=== PATIENT | female | born 1935 | race Caucasian/White ===

== ENCOUNTER 2016-04-25 01:04 | Emergency (ER) | payer OTHER ==
[~2016-04-25] VITALS: Ht 157.5 cm; Wt 70.9 kg
[~2016-04-25 01:04] MED LIST: ALBUAER2 INH; ATEN-173 PO; CHOL100010 PO; HYDR50TA3 PO; MAGNESIUM PO; PANT40TA PO; POTA-327 PO; RXC5 PO; TIOTCAP INH; [UNRECOGNIZED DRUG - OTHER] PO
[2016-04-25 01:12] VITALS: TEMP 36.5; Ht 157.5 cm; Wt 70.9 kg
[2016-04-25] MEDS ORDERED: PRED50TA PO (01:27)
[2016-04-25 01:49] VITALS: BP 142/83; PULSE 71; O2SAT 93
--- NOTE | 2016-04-25 05:07 | EMERGENCY ROOM VISIT NOTE ---
History First contact with patient: :17 Chief Complaint: SKIN PROBLEM Stated Complaint: HIVES History of Present Illness The patient is a 80 year old female who presents to the Emergency Room with complaints of itchiness and rash that has been ongoing for the past 2-3 days. The patient was recently given a prescription for Zithromax from her primary care physician's office. The patient subsequently developed a yeast infection. She took one dose of Diflucan 150 mg, and within a few hours began having her symptoms. The patient states that she initially had facial flushing, and has been taking Benadryl every 6 hours. The Benadryl does help with her symptoms, but she continues to have itchiness of her back and arms. The patient is not having difficulty breathing, facial or throat swelling, or abdominal pain. She rates her current discomfort a 2/10. Review of Systems More than 10 systems were reviewed and otherwise negative with the exception of history of present illness. Past Medical/Surgical History Medical Problems: (1) Acute exacerbation of chronic obstructive pulmonary disease (COPD) (2) Benign hypertension (3) Cardiac catheterization (4) Chronic obstructive lung disease (5) Hysterectomy (6) Lumbar stenosis with neurogenic claudication (7) Pneumonia (8) Tonsillectomy Family History Patient reports no known family medical history. Social History Smoking Status: Never Smoker Alcohol Use: none Drug Use: none Marital Status: Housing Status: lives with family Occupation Status: retired Current/Historical Medications Scheduled Albuterol (Ventolin Hfa), 2 PUFF INH QID Atenolol (Tenormin), 25 MG PO QAM Cholecalciferol (Vitamin D), 1,000 INTER.UNIT PO QPM Hydrochlorothiazide (Hctz), 50 MG PO QAM Pantoprazole (Protonix), 40 MG PO BID Potassium Ext Rel (Klor-Con), 10 MEQ PO BID Prednisone (Prednisone), 50 MG PO DAILY Tiotropium [place] (Spiriva Handihaler), 1 CAP INH QAM [Magnesium ], 250 MG PO QPM [bladder 2.2], 2 TABLETS PO QPM Scheduled PRN Oxycodone HCl (Oxycodone HCl), 5-10 MG PO Q4H PRN for Pain Allergies Coded Allergies: Nitrofurantoin (Verified Allergy, Severe, SHORTNESS OF BREATH, 09/29/15) Terazosin (Verified Allergy, Severe, SHORTNESS OF BREATH, 09/29/15) Levofloxacin (Verified Allergy, Intermediate, SOB, pt able to take cipro w /o prob, 09/29/15) Lisinopril (Verified Allergy, Intermediate, COUGH SOB, 09/29/15) Losartan (Verified Allergy, Intermediate, SHORTNESS OF BREATH, 09/29/15) Nifedipine (Verified Allergy, Intermediate, SHORTNESS OF BREATH, 09/29/15) Amoxicillin (Verified Allergy, Unknown, HIVES, 09/29/15) Phenazopyridine (Verified Allergy, Unknown, UNKNOWN, 09/29/15) Sulfamethoxazole w/Trimethoprim (Verified Allergy, Unknown, hives, 09/29/15) Fluconazole (Verified Adverse Reaction, Intermediate, rash, hives, 04/25/16) Physical Exam Vital Signs Date Time Temp Pulse Resp B/P Pulse Ox O2 Delivery O2 Flow Rate FiO2 04/25/16 01:49 71 18 142/83 93 04/25/16 01:12 36.5 76 20 143/75 93 Room Air Pain Rating (0-10): 0 Physical Exam VITALS: Vitals are noted on the nurse's note and reviewed by myself. Vital signs stable. GENERAL: Well-developed, well-nourished, white female, who is in no acute distress and resting comfortably. Patient is cooperative with the examination. HEAD: Normocephalic atraumatic. MOUTH: Mucous membranes moist. Tonsils are not enlarged. Pharynx without erythema, blood, or exudate. Uvula midline. Airway patent. NECK: Supple without nuchal rigidity. No lymphadenopathy. No thyromegaly. Cervical spine is nontender. HEART: Regular rate and rhythm without murmurs gallops or rubs. LUNGS: Clear to auscultation bilaterally without wheezes, rales or rhonchi. No retractions or accessory muscle use. ABDOMEN: Positive normal bowel sounds x 4. Soft, nontender, without masses or organomegaly. No guarding or rebound tenderness. SKIN: The skin was with urticarial rash primarily along the lower back and anterior forearms Medical Decision & Procedures Medications Administered Medications (Trade) Dose Ordered Sig/Christopher Route Start Time Stop Time Status Last Admin Dose Admin Prednisone (PredniSONE TAB) 50 mg NOW ONCE PO 04/25/16 01:30 04/25/16 01:31 DC 04/25/16 01:35 50 MG ED Course Physical exam and history were performed. Nursing notes and EMR were reviewed. Patient appears to have allergic reaction to Diflucan that she took 2 or 3 days ago. The patient will be given a course of prednisone for her symptoms and she does not appear in anaphylaxis here in the department. We'll give her a continuation course of the medication. She is to continue [id number] Benadryl. She is to follow with PCP and was otherwise invited back to the ER with any new, worsening, or concerning symptoms. The chart was completed utilizing [employer] Speech Voice Recognition Software. Grammatical errors, random word insertions, pronoun errors, and incomplete sentences are an occasional consequence of this system due to software limitations, ambient noise, and hardware issues. Any formal questions or concerns about the content, text, or information contained within the body of this dictation should be directly addressed to the provider for clarification. . Medical Decision Differential diagnosis: Etiologies such as allergic reaction, anaphylaxis, urticaria, Thomas-Frank syndrome, toxic epidermal necrolysis, erythema multiforme, cellulitis, as well as others were entertained. Impression Primary Impression: Medication reaction Additional Impression: Allergic reaction Departure Information Dispostion Home / Self-Care Condition GOOD Prescriptions Prednisone (Prednisone) 50 Mg Tab 50 MG PO DAILY for 4 Days, #4 TAB Prov: Cody Watkins PA-C 04/25/16 Forms HOME CARE DOCUMENTATION FORM, IMPORTANT VISIT INFORMATION Patient Instructions A Signature Page, [facility] Additional Instructions You were seen and evaluated today on an emergency basis only. This is not a substitute for, or an effort to provide, complete comprehensive medical care. It is not possible to recognize and treat all injuries or illnesses in a single emergency department visit. For this reason it is recommended that you followup with your primary care physician's office in the next 1-2 days for recheck of your condition. Take Benadryl 25-50 mg every 6 hours for the next 2-3 days as needed. Take prednisone as prescribed You are welcome to return to the emergency department anytime with new, worsening, or concerning symptoms.
[2016-04-26] MEDS ORDERED: ALBU18002 INH (03:19)
[2016-10-06] MEDS ORDERED: PRED10TA (06:16)
[2016-10-06] MEDS ORDERED: DOXY100C2 PO (06:16)
[2016-10-12] MEDS ORDERED: ALBINS PO (15:38)
[2016-10-12] MEDS ORDERED: PRED10TA PO (15:38)
[2016-10-12] MEDS ORDERED: HYDR50TA3 PO (15:38)
[2016-10-12] MEDS ORDERED: ASPEC81 PO (15:38)
[2016-10-12] MEDS ORDERED: GFNSR600 PO (15:38)
[2016-10-12] MEDS ORDERED: ATOR-24 PO (15:38)
[2016-10-12] MEDS ORDERED: ALL60 PO (15:38)
[2016-10-12] MEDS ORDERED: TRIA1SPR4 NAE (15:38)
[2016-11-10] MEDS ORDERED: OXYC-57 PO (11:08)
[2016-11-10] MEDS ORDERED: CLOP1TAB5 PO (11:49)
== END 2016-04-25 01:50 | disposition home or self-care (01) ==
LOC: C.EDB 01:05 → C.EDA 01:50
DX: L50.0 Allergic urticaria (principal); T37.8X5A Adverse effect of other specified systemic anti-infectives and antiparasitics, initial encounter; I10 Essential (primary) hypertension; J44.9 Chronic obstructive pulmonary disease, unspecified; Z90.710 Acquired absence of both cervix and uterus; Z87.01 Personal history of pneumonia (recurrent); Z79.899 Other long term (current) drug therapy

== ENCOUNTER 2016-04-26 02:36 | Emergency (ER) | payer OTHER ==
[~2016-04-26] VITALS: Ht 157.5 cm; Wt 70.8 kg
[~2016-04-26 02:36] MED LIST changes: +PRED50TA PO
[2016-04-26 02:42] VITALS: TEMP 36.4; Ht 157.5 cm; Wt 70.8 kg
[2016-04-26] MEDS ORDERED: FAMOTIDINE 20MG/102 ML D5W IV STA (03:00)
[2016-04-26] MEDS ORDERED: DiphenhydrAMINE HCL 50 MG/ML VIAL IV STA (03:00)
[2016-04-26] MEDS ORDERED: DEXAMETHASONE SOD INJ 10 MG/ML VIAL IV ONE (03:00)
[2016-04-26] MEDS ORDERED: SODIUM CHLORIDE 0.9% 1000ML 1,000 ML IV STA (03:00)
[2016-04-26] MEDS ORDERED: ALBU18002 INH (03:19)
[2016-04-26 03:32] LABS: BASO % 0.1 %; BASO ABS # 0.01 K/uL (0-0.2); COMPLETE YES; HEMATOCRIT 41.3 % (37-47); IG% 0.4 %; LYMPH % 7.5 %; LYMPH ABS # 1.32 K/uL (1.2-3.4); MEAN CELL VOLUME 90.6 fL (80-100); MEAN CORPUSCULAR HEMOGLOBIN 30.9 pg (25-34); MEAN CORPUSCULAR HGB CONC 34.1 g/dl (32-36); PLATELET COUNT 371 K/uL (130-400); RED BLOOD COUNT 4.56 M/uL (4.2-5.4); WHITE BLOOD COUNT 17.69 K/uL (4.8-10.8)
[2016-04-26 03:51] LABS: BUN/CREATININE RATIO 21.6 (10-20); POTASSIUM 3.4 mmol/L (3.5-5.1)
--- NOTE | 2016-04-26 04:41 | EMERGENCY ROOM VISIT NOTE ---
History Report prepared by Belle: Mikael Sherwood Under the Supervision of: Dr. Larry Bermudez M.D. First contact with patient: 02:50 Chief Complaint: SKIN PROBLEM Stated Complaint: HIVES-ITCHY SKIN History of Present Illness The patient is an 80 year old female who presents to the Emergency Room with complaints of worsening hives all over her body for the past week. The rash covers her abdomen, back, and extremities. The rash is itchy. The patient had two Benadryl tabs at approximately 2300. She was in the ED for the same rash last night. Her is not having any rashes. The patient denies shortness of breath, chest pain, urinary symptoms, or syncope. She has ankle swelling at baseline. The patient last had Fluconazole for a yeast infection on 04/20. Source of History: patient Onset: one week Position: other (skin) Quality: other (hives) Timing: worsening Associated Symptoms: No SOB, No chest pain, No urinary symptoms Review of Systems See HPI for pertinent positives & negatives. A total of 10 systems reviewed and were otherwise negative. Past Medical & Surgical Medical Problems: (1) Acute exacerbation of chronic obstructive pulmonary disease (COPD) (2) Benign hypertension (3) Cardiac catheterization (4) Chronic obstructive lung disease (5) Hysterectomy (6) Lumbar stenosis with neurogenic claudication (7) Pneumonia (8) Tonsillectomy Family History Patient reports no known family medical history. Social History Smoking Status: Former Smoker Alcohol Use: none Drug Use: none Marital Status: Housing Status: lives with family Occupation Status: retired Current/Historical Medications Scheduled Atenolol (Tenormin), 25 MG PO QAM Hydrochlorothiazide (Hctz), 50 MG PO QAM Pantoprazole (Protonix), 40 MG PO BID Potassium Ext Rel (Klor-Con), 10 MEQ PO BID Tiotropium [place] (Spiriva Handihaler), 1 CAP INH QAM [bladder 2.2], 2 TABLETS PO QPM Scheduled PRN Albuterol Sulfate (Proair Respiclick), 2 PUFFS INH Q4 PRN for SOB/Wheezing Allergies Coded Allergies: Nitrofurantoin (Verified Allergy, Severe, SHORTNESS OF BREATH, 04/26/16) Terazosin (Verified Allergy, Severe, SHORTNESS OF BREATH, 04/26/16) Levofloxacin (Verified Allergy, Intermediate, SOB, pt able to take cipro w /o prob, 04/26/16) Lisinopril (Verified Allergy, Intermediate, COUGH SOB, 04/26/16) Losartan (Verified Allergy, Intermediate, SHORTNESS OF BREATH, 04/26/16) Nifedipine (Verified Allergy, Intermediate, SHORTNESS OF BREATH, 04/26/16) Amoxicillin (Verified Allergy, Unknown, HIVES, 04/26/16) Phenazopyridine (Verified Allergy, Unknown, UNKNOWN, 04/26/16) Sulfamethoxazole w/Trimethoprim (Verified Allergy, Unknown, hives, 04/26/16) Fluconazole (Verified Adverse Reaction, Intermediate, rash, hives, 04/26/16) Physical Exam Vital Signs Date Time Temp Pulse Resp B/P Pulse Ox O2 Delivery O2 Flow Rate FiO2 04/26/16 04:55 66 18 154/74 95 04/26/16 04:19 71 18 155/78 98 Room Air 04/26/16 02:42 36.4 79 18 143/70 92 Room Air Physical Exam GENERAL: Patient is well appearing, in mild distress. HEENT: No acute trauma, normocephalic atraumatic, mucous membranes moist, no nasal congestion, no scleral icterus. NECK: No stridor, no adenopathy, no meningismus, trachea is midline. LUNGS: No dyspnea. Clear to auscultation and equal bilaterally. No wheeze, no rhonchi. HEART: Regular rate and rhythm. No murmurs, rubs, gallops appreciated. ABDOMEN: Soft, nontender, bowel sounds positive, no masses appreciated, no peritonitis. BACK: No midline tenderness, no CVA tenderness EXTREMITIES: Normal motion all extremities, no cyanosis, no edema. NEUROLOGIC: Alert and oriented, no acute motor or sensory deficits, no focal weakness, cranial nerves grossly intact. SKIN: No jaundice, no diaphoresis. Diffuse hives/urticaria. Medical Decision & Procedures Laboratory Results 04/26/16 03:20 Red Blood Count 4.56, Mean Corpuscular Volume 90.6, Mean Corpuscular Hemoglobin 30.9, Mean Corpuscular Hemoglobin Concent 34.1, Mean Platelet Volume 11.0, Neutrophils (%) (Auto) 85.0, Lymphocytes (%) (Auto) 7.5, Monocytes (%) (Auto) 7.0, Eosinophils (%) (Auto) 0.0, Basophils (%) (Auto) 0.1, Neutrophils # (Auto) 15.05, Lymphocytes # (Auto) 1.32, Monocytes # (Auto) 1.24, Eosinophils # (Auto) 0.00, Basophils # (Auto) 0.01 04/26/16 03:20 Test 04/26/16 03:20 White Blood Count 17.69 K/uL (4.8-10.8) Red Blood Count 4.56 M/uL (4.2-5.4) Hemoglobin 14.1 g/dL (12.0-16.0) Hematocrit 41.3 % (37-47) Mean Corpuscular Volume 90.6 fL (80-100) Mean Corpuscular Hemoglobin 30.9 pg (25-34) Mean Corpuscular Hemoglobin Concent 34.1 g/dl (32-36) Platelet Count 371 K/uL (130-400) Mean Platelet Volume 11.0 fL (7.4-10.4) Neutrophils (%) (Auto) 85.0 % Lymphocytes (%) (Auto) 7.5 % Monocytes (%) (Auto) 7.0 % Eosinophils (%) (Auto) 0.0 % Basophils (%) (Auto) 0.1 % Neutrophils # (Auto) 15.05 K/uL (1.4-6.5) Lymphocytes # (Auto) 1.32 K/uL (1.2-3.4) Monocytes # (Auto) 1.24 K/uL (0.11-0.59) Eosinophils # (Auto) 0.00 K/uL (0-0.5) Basophils # (Auto) 0.01 K/uL (0-0.2) RDW Standard Deviation 49.7 fL (36.4-46.3) RDW Coefficient of Variation 14.9 % (11.5-14.5) Immature Granulocyte % (Auto) 0.4 % Immature Granulocyte # (Auto) 0.07 K/uL (0.00-0.02) Anion Gap 11.0 mmol/L (3-11) Est Creatinine Clear Calc Drug Dose 41.4 ml/min Estimated GFR () 61.6 Estimated GFR (Non- 53.2 BUN/Creatinine Ratio 21.6 (10-20) Calcium Level 9.0 mg/dl (8.5-10.1) Total Bilirubin 0.3 mg/dl (0.2-1) Aspartate Amino Transf (AST/SGOT) 15 U/L (15-37) Alanine Aminotransferase (ALT/SGPT) 24 U/L (12-78) Alkaline Phosphatase 83 U/L (45-117) Total Protein 7.9 gm/dl (6.4-8.2) Albumin 4.0 gm/dl (3.4-5.0) Globulin 3.9 gm/dl (2.5-4.0) Albumin/Globulin Ratio 1.0 (0.9-2) Laboratory results as reviewed by me. Medications Administered Medications (Trade) Dose Ordered Sig/Christopher Route Start Time Stop Time Status Last Admin Dose Admin Sodium Chloride (Nss 1000ml) 1,000 ml @ 999 mls/hr Q1H1M STAT IV 04/26/16 03:00 04/26/16 04:00 DC 04/26/16 03:29 999 MLS/HR Dexamethasone Sodium Phosphate (Decadron Inj) 10 mg NOW ONCE IV 04/26/16 03:00 04/26/16 03:02 DC 04/26/16 03:30 10 MG Diphenhydramine HCl (Benadryl Inj) 50 mg NOW STAT IV 04/26/16 03:00 04/26/16 03:02 DC 04/26/16 03:29 50 MG Famotidine (Pepcid 20mg/100 ml) 20 mg ONE STAT IV 04/26/16 03:00 04/26/16 03:02 DC 04/26/16 03:30 20 MG Lorazepam (Ativan 1MG Home Pack) 2 homepack UD ONCE PO 04/26/16 04:45 04/26/16 04:46 DC 04/26/16 04:51 2 HOMEPACK ED Course 0251: The patient was evaluated in room B3b. A complete history and physical exam was performed. 0300: Famotidine 20 mg IV, Benadryl 50 mg IV, Decadron 10 mg IV, NSS 1000 ml @ 999 mls/hr. 0430: The patient is feeling better. She wants something so that she can get some sleep. 0440: Reevaluated the patient. Discussed results and discharge instructions: She verbalized understanding and agreement. The patient is ready for discharge. 0445: Ativan 1 mg PO, two home packs. Medical Decision Differential: Allergic Reaction, Urticaria, Anaphylaxis, Thomas-Frank Syndrome, Toxic Epidermal Necrolysis, Erythema Multiforme, Cellulitis, amongst other etiologies entertained. 80 yr old female with diffuse hives/urticaria presumably from recent fluconazole usage. No mucous membrane involvement and hives resolved with IV benadryl here. Mild leukocytosis likely prednisone induced as no fevers nor infectious symptoms. Discussed possibility of this ongoing a few more days. Advised against hot showers that she takes regularly along with reviewed other important instructions of hives. Was given ativan to go as a sleep aid so she can sleep at night rather than be awake all night itching. Impression Primary Impression: Allergic reaction Additional Impressions: Full body hives, Acute urticaria Scribe Attestation The scribe's documentation has been prepared under my direction and personally reviewed by me in its entirety. I confirm that the note above accurately reflects all work, treatment, procedures, and medical decision making performed by me. Departure Information Dispostion Home / Self-Care Referrals Lonnie Nicolas M.D. (PCP) Forms HOME CARE DOCUMENTATION FORM, IMPORTANT VISIT INFORMATION, WORK / SCHOOL INSTRUCTIONS Patient Instructions A Signature Page, ED Urticaria, [facility] Additional Instructions You have received a benzodiazepine sleep medication. These medications may cause drowsiness and should not be used with other sedative medications. Do not drive, drink alcohol, perform dangerous activities, nor make important decisions after taking these medications. intermission coordinator use or inappropriate use may lead to addiction.
[2016-04-26] MEDS ORDERED: ATIVAN 1MG HOMEPACK PO ONE (04:45)
[2016-04-26 04:55] VITALS: BP 154/74; PULSE 66; O2SAT 95
[2016-10-06] MEDS ORDERED: DOXY100C2 PO (06:16)
[2016-10-06] MEDS ORDERED: PRED10TA (06:16)
[2016-10-12] MEDS ORDERED: ALL60 PO (15:38)
[2016-10-12] MEDS ORDERED: HYDR50TA3 PO (15:38)
[2016-10-12] MEDS ORDERED: TRIA1SPR4 NAE (15:38)
[2016-10-12] MEDS ORDERED: ASPEC81 PO (15:38)
[2016-10-12] MEDS ORDERED: ATOR-24 PO (15:38)
[2016-10-12] MEDS ORDERED: ALBINS PO (15:38)
[2016-10-12] MEDS ORDERED: PRED10TA PO (15:38)
[2016-10-12] MEDS ORDERED: GFNSR600 PO (15:38)
[2016-11-10] MEDS ORDERED: OXYC-57 PO (11:08)
[2016-11-10] MEDS ORDERED: CLOP1TAB5 PO (11:49)
== END 2016-04-26 04:56 | disposition home or self-care (01) ==
LOC: C.EDB 02:38
DX: L50.0 Allergic urticaria (principal); Z79.899 Other long term (current) drug therapy; X58.XXXA Exposure to other specified factors, initial encounter

== ENCOUNTER → 2016-10-06 | Outpatient (CLI) | payer OTHER ==
[~2016-10-06] MED LIST changes: +ALBINS PO; +ALBU18002 INH; -ALBUAER2 INH; +ALL60 PO; +ASPEC81 PO; +ATOR-24 PO; -CHOL100010 PO; +CLOP1TAB5 PO; +DOXY100C2 PO; +GFNSR600 PO; -MAGNESIUM PO; +NUTR1TAB3 PO; +OXYC-57 PO; +POTA-74 PO; +PRED10TA; +PRED10TA PO; -PRED50TA PO; -RXC5 PO; +SPRIN/30 PO; +TRIA1SPR4 NAE; +VNTHFA/IN INH
--- NOTE | 2016-10-06 14:56 | DIAGNOSTIC IMAGING REPORT ---
ULTRASOUND VENOUS DOPPLER LWR EXT BILA CLINICAL HISTORY: Leg discomfort and change in temperature. COMPARISON STUDY: No previous studies for comparison. FINDINGS: Real-time and color flow Doppler imaging were performed. Flow was seen within the femoral, popliteal and calf veins with no intraluminal thrombus demonstrated. The saphenous vein is patent. IMPRESSION: No evidence of deep venous thrombosis. Electronically signed by: Meek Martin M.D. 10/06/2016 2:54 PM Dictated Date/Time: 10/06/2016 2:54 PM
--- NOTE | 2016-10-06 14:58 | DIAGNOSTIC IMAGING REPORT ---
ULTRASOUND ART DOP LOWER EXT BILAT CLINICAL HISTORY: LEG WEAKNESS W/OUT CHG IN TEMPERATURE pain COMPARISON STUDY: None FINDINGS: Real-time as well as Doppler evaluation of the arterial structures of the lower legs was performed. Waveforms of the right leg indicate monophasic waveforms throughout. There are biphasic waveforms throughout the entire left leg. The following blood pressure indices were obtained. On the right, posterior tibial is 0.49 and dorsalis pedis is 0.35. On the left, posterior tibial is 0.83 and dorsalis pedis is 0.58. IMPRESSION:: 1. 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 2. Moderate arterial occlusive change throughout the entire left leg. 3. No evidence for complete stenosis or occlusion Electronically signed by: Declan Mckay M.D. 10/06/2016 2:57 PM Dictated Date/Time: 10/06/2016 2:54 PM
== END | disposition home or self-care (01) ==
LOC: C.ULTR 12:17
PROVIDERS: ATTEND Orthopaedic Surgery Orthopaedic Surgery of the Spine
DX: R29.898 Other symptoms and signs involving the musculoskeletal system (principal); I74.9 Embolism and thrombosis of unspecified artery

== ENCOUNTER 2016-10-07 05:49 | Inpatient (IN) | payer OTHER ==
[~2016-10-07] VITALS: Ht 157.5 cm; Wt 73.0 kg
[2016-10-07] VITALS (7 sets, daily range): BP systolic 102–133; BP diastolic 57–74; PULSE 75–106; TEMP 36.6–36.9; O2SAT 91–99; Ht 157.5 cm; Wt 73.0 kg
[~2016-10-07 05:49] MED LIST changes: -ALBINS PO; -ALL60 PO; -ASPEC81 PO; -ATOR-24 PO; -CLOP1TAB5 PO; -GFNSR600 PO; -NUTR1TAB3 PO; -OXYC-57 PO; -POTA-74 PO; -PRED10TA PO; -SPRIN/30 PO; -TRIA1SPR4 NAE; -VNTHFA/IN INH
[2016-10-07] MEDS ORDERED: METHYLPREDNISOLONE 125 MG VIAL IV STA (06:02)
--- NOTE | 2016-10-07 06:05 | EMERGENCY ROOM VISIT NOTE ---
History Report prepared by Belle: Kelsie Briscoe Under the Supervision of: Dr. Larry Bermudez M.D. First contact with patient: 05:58 Chief Complaint: RESPIRATORY PROBLEMS Stated Complaint: CAN'T BREATHE History of Present Illness The patient is a 81 year old female who presents to the Emergency Room with complaints of shortness of breath since yesterday. The patient has COPD and uses a nebulizer at home. The patient also reports having upper right back pain. She denies any fevers, coughing, nausea, vomiting, chest pain, and abdominal pain. The patient also states that she has not traveled recently. Source of History: patient Onset: yesterday Position: chest Quality: other (shortness of breath ) Associated Symptoms: + back pain (upper right), No fevers, No cough, No chest pain, No nausea, No vomiting Review of Systems See HPI for pertinent positives & negatives. A total of 10 systems reviewed and were otherwise negative. Past Medical & Surgical Medical Problems: (1) Acute exacerbation of chronic obstructive pulmonary disease (COPD) (2) Fung's esophagus (3) Benign hypertension (4) Cardiac catheterization (5) Chronic obstructive lung disease (6) Hysterectomy (7) Lumbar stenosis with neurogenic claudication (8) Tonsillectomy Family History Patient reports no known family medical history. No pertinent family history stated. Social History Smoking Status: Former Smoker Alcohol Use: none Drug Use: none Marital Status: Housing Status: lives with family Occupation Status: retired Current/Historical Medications Scheduled Atenolol (Tenormin), 25 MG PO QAM Doxycycline Hyclate (Vibramycin), 100 MG PO BID Hydrochlorothiazide (Hctz), 50 MG PO QAM Nutritional Supplements (Bladder 2.2), 2 TABS PO DAILY Pantoprazole (Protonix), 40 MG PO BID Potassium Chloride (Potassium Chloride Er), 10 MEQ PO BID Prednisone (Prednisone), UD Tiotropium [place] (Spiriva Handihaler), 1 INHA PO DAILY Scheduled PRN Albuterol Hfa (Ventolin Hfa), 2 PUFFS INH Q4 PRN for SOB/Wheezing Allergies Coded Allergies: Nitrofurantoin (Verified Allergy, Severe, SHORTNESS OF BREATH, 10/07/16) Terazosin (Verified Allergy, Severe, SHORTNESS OF BREATH, 10/07/16) Levofloxacin (Verified Allergy, Intermediate, SOB, pt able to take cipro w /o prob, 10/07/16) Lisinopril (Verified Allergy, Intermediate, COUGH SOB, 10/07/16) Losartan (Verified Allergy, Intermediate, SHORTNESS OF BREATH, 10/07/16) Nifedipine (Verified Allergy, Intermediate, SHORTNESS OF BREATH, 10/07/16) Amoxicillin (Verified Allergy, Unknown, HIVES, 10/07/16) Phenazopyridine (Verified Allergy, Unknown, UNKNOWN, 10/07/16) Sulfamethoxazole w/Trimethoprim (Verified Allergy, Unknown, hives, 10/07/16 ) Fluconazole (Verified Adverse Reaction, Intermediate, rash, hives, 10/07/16 ) Physical Exam Vital Signs Date Time Temp Pulse Resp B/P (MAP) Pulse Ox O2 Delivery O2 Flow Rate FiO2 10/07/16 08:01 138/67 10/07/16 07:57 116 10/07/16 07:31 144/58 10/07/16 07:28 99 Nasal Cannula 4.0 10/07/16 06:29 94 134/85 99 Nasal Cannula 4.0 10/07/16 06:15 96 Nasal Cannula 4.0 10/07/16 05:54 36.8 99 20 145/85 87 Room Air Physical Exam GENERAL: Patient is anxious appearing and in mild distress. HEENT: No acute trauma, normocephalic atraumatic, mucous membranes moist, no nasal congestion, no scleral icterus. NECK: No stridor, no adenopathy, no meningismus, trachea is midline. LUNGS: No dyspnea. Tight lung sounds throughout, Mild diffuse wheezing no rhonchi. HEART: Regular rate and rhythm. No murmurs, rubs, gallops appreciated. ABDOMEN: Soft, nontender, bowel sounds positive, no masses appreciated, no peritonitis. BACK: No midline tenderness, no CVA tenderness EXTREMITIES: Normal motion all extremities, no cyanosis, no edema. NEUROLOGIC: Alert and oriented, no acute motor or sensory deficits, no focal weakness, cranial nerves grossly intact. SKIN: No rash, no jaundice, no diaphoresis. Medical Decision & Procedures ER Provider Diagnostic Interpretation: X ray results are stated below per my interpretation and the radiologist's interpretation. CHEST ONE VIEW PORTABLE CLINICAL HISTORY: [facility] dyspnea COMPARISON STUDY: 10/02/2015 FINDINGS: The bones soft tissues and hemidiaphragms are normal. The cardiomediastinal silhouette is normal. The lungs are clear. The pulmonary vasculature is normal. IMPRESSION: Negative chest. Electronically signed by: Declan Mckay M.D. 10/07/2016 7:00 AM Dictated Date/Time: 10/07/2016 6:59 AM Laboratory Results Test 10/07/16 06:15 10/07/16 06:22 RDW Standard Deviation 52.8 fL (36.4-46.3) RDW Coefficient of Variation 15.1 % (11.5-14.5) White Blood Count 9.29 K/uL (4.8-10.8) Red Blood Count 4.30 M/uL (4.2-5.4) Hemoglobin 13.6 g/dL (12.0-16.0) Hematocrit 41.1 % (37-47) Mean Corpuscular Volume 95.6 fL (80-100) Mean Corpuscular Hemoglobin 31.6 pg (25-34) Mean Corpuscular Hemoglobin Concent 33.1 g/dl (32-36) Platelet Count 341 K/uL (130-400) Mean Platelet Volume 10.5 fL (7.4-10.4) Neutrophils (%) (Auto) 67.9 % Lymphocytes (%) (Auto) 16.0 % Monocytes (%) (Auto) 13.1 % Eosinophils (%) (Auto) 2.5 % Basophils (%) (Auto) 0.3 % Neutrophils # (Auto) 6.30 K/uL (1.4-6.5) Lymphocytes # (Auto) 1.49 K/uL (1.2-3.4) Monocytes # (Auto) 1.22 K/uL (0.11-0.59) Eosinophils # (Auto) 0.23 K/uL (0-0.5) Basophils # (Auto) 0.03 K/uL (0-0.2) Immature Granulocyte % (Auto) 0.2 % Immature Granulocyte # (Auto) 0.02 K/uL (0.00-0.02) Est Creatinine Clear Calc Drug Dose 45.9 ml/min Total Creatine Kinase 78 U/L (26-192) Creatine Kinase MB 0.5 ng/ml (0.5-3.6) Creatine Kinase MB Ratio 0.6 (0-3.0) Troponin I < 0.015 ng/ml (0-0.045) Bedside Lactic Acid Venous 1.68 mmol/L (0.90-1.70) Laboratory results as reviewed by me. Medications Administered Medications (Trade) Dose Ordered Sig/Christopher Route Start Time Stop Time Status Last Admin Dose Admin Albuterol/ Ipratropium (Duoneb) 12 ml ONE ONCE INH 10/07/16 06:15 10/07/16 06:16 DC 10/07/16 06:34 12 ML Methylprednisolone Sodium Succinate (Solu-Medrol IV) 125 mg NOW STAT IV 10/07/16 06:02 10/07/16 06:03 DC 10/07/16 06:33 125 MG Doxycycline Hyclate 100 mg/ Dextrose 110 ml @ 50 mls/hr NOW STAT IV 10/07/16 06:48 10/07/16 08:59 DC 10/07/16 07:24 50 MLS/HR ECG Indication: SOB/dyspnea Rate (beats per minute): 90 Rhythm: normal sinus Findings: no acute ischemic change, no ectopy ED Course 0600: The patient was evaluated in room B2. A complete history and physical exam was performed. 0602: Ordered Solu-Medrol IV 125 mg IV. 0615: Ordered Duoneb 12 ml INH. 0647: The patient's breath sounds have mildly improved. She now has diffuse moderate wheezing. 0648: Ordered Doxycycline Hyclate 100 mg/Dextrose 110 ml @ 50 mls/hr IV. 0705: Upon reevaluation, the patient is resting. Discussed results and treatment plan with the patient. She verbalized understanding and agreement with the treatment plan. The patient will be evaluated for further management. Medical Decision Differential: Infectious, Reactive Airway Disease, Pneumonia, Pneumothorax, COPD , CHF, ACS, Pulmonary Embolism, MSK, GI, Dissection, amongst other etiologies entertained. Medication Reconciliation: I attest that I have personally reviewed the patient 's current medication list. Blood pressure screening: Patient was found to have an elevated blood pressure and will be evaluated by hospitalist for this along with primary medical issue 81 yr old female arrives for evaluation of acute SHOB. Found to be hypoxic with tight lung sounds. Improved with Neb somewhat though still not to point where safe for discharge. IV solumedrol, doxy given. I feel this is unlikely infectious though will cover given her COPD history. Lactic acid OK, no fever, and no hypotension thus will hold on blood cultures. CXR without evidence pneumonia. Stable and agreeable to coming in to hospital. Consults Time Called: 06 Consulting Physician: Dr. Greer- Internal Medicine Returned Call: [phone] Discussed the patient's case. The patient will be evaluated for further treatment and disposition. Impression Primary Impression: Acute exacerbation of chronic obstructive pulmonary disease (COPD) Additional Impression: Hypoxia Scribe Attestation The scribe's documentation has been prepared under my direction and personally reviewed by me in its entirety. I confirm that the note above accurately reflects all work, treatment, procedures, and medical decision making performed by me. Departure Information Dispostion Being Evaluated By Hospitalist Referrals Lonnie Nicolas M.D. (PCP) Patient Instructions My [facility] Problem Qualifiers
[2016-10-07] MEDS ORDERED: NUTR1TAB3 PO (06:13)
[2016-10-07] MEDS ORDERED: SPRIN/30 PO (06:15)
[2016-10-07] MEDS ORDERED: POTA-74 PO (06:15)
[2016-10-07] MEDS ORDERED: ALBUT/IPRATROP 3MG/0.5MG NEB 3 ML VIAL INH ONE (06:15)
[2016-10-07] MEDS ORDERED: VNTHFA/IN INH (06:18)
[2016-10-07 06:27] LABS: BASO % 0.3 %; BASO ABS # 0.03 K/uL (0-0.2); COMPLETE YES; EOS % 2.5 %; HEMATOCRIT 41.1 % (37-47); IG% 0.2 %; LYMPH ABS # 1.49 K/uL (1.2-3.4); MEAN CELL VOLUME 95.6 fL (80-100); MEAN CORPUSCULAR HEMOGLOBIN 31.6 pg (25-34); MEAN CORPUSCULAR HGB CONC 33.1 g/dl (32-36); MEAN PLATELET VOLUME 10.5 fL (7.4-10.4); MONO % 13.1 %; NEUT % 67.9 %; PLATELET COUNT 341 K/uL (130-400); WHITE BLOOD COUNT 9.29 K/uL (4.8-10.8)
[2016-10-07 06:43] LABS: BLOOD UREA NITROGEN 17 mg/dl (7-18); BUN/CREATININE RATIO 19.1 (10-20); CARBON DIOXIDE 35 mmol/L (21-32); CHLORIDE 99 mmol/L (98-107); GLUCOSE 101 mg/dl (70-99); POTASSIUM 3.3 mmol/L (3.5-5.1); SODIUM 140 mmol/L (136-145)
[2016-10-07 06:48] LABS: CKMB/CK RATIO 0.6 (0-3.0)
[2016-10-07] MEDS ORDERED: DOXYCYCLINE IV 100 MG in DEXTROSE 5% 100ML 100 ML IV STA (06:48)
--- NOTE | 2016-10-07 07:01 | DIAGNOSTIC IMAGING REPORT ---
CHEST ONE VIEW PORTABLE CLINICAL HISTORY: [facility] dyspnea COMPARISON STUDY: 10/02/2015 FINDINGS: The bones soft tissues and hemidiaphragms are normal. The cardiomediastinal silhouette is normal. The lungs are clear. The pulmonary vasculature is normal. IMPRESSION: Negative chest. Electronically signed by: Declan Mckay M.D. 10/07/2016 7:00 AM Dictated Date/Time: 10/07/2016 6:59 AM
[2016-10-07] MEDS ORDERED: ACETAMINOPHEN 325 MG TAB PO PRN (07:45)
[2016-10-07] MEDS ORDERED: POLYETHYLENE (MIRALAX) 17 GM PACK PO PRN (07:45)
[2016-10-07] MEDS ORDERED: ALBUT/IPRATROP 3MG/0.5MG NEB 3 ML VIAL INH PRN (07:45)
[2016-10-07] MEDS ORDERED: ALUMINUM/MAGNESIUM/SIMETH (MAALOX MAX) 30 ML UDC PO PRN (07:45)
[2016-10-07] MEDS ORDERED: ONDANSETRON INJ 2 MG/ML 2 ML VIAL IV PRN (07:45)
--- NOTE | 2016-10-07 08:02 | History and Physical ---
History & Physical Date & Time of Service: Oct 07, 2016 at 07:54 Chief Complaint: Can't Breathe Primary Care Physician: Lonnie Nicolas M.D. History of Present Illness Source: patient PT HAS A ONE WEEK HISTORY OF PROGRESSIVE SHORTNESS OF BREATH AND NON PRODUCTIVE COUGH, IS ALSO SICK. SHE DID SEE URGENT CARE 10/06 AND WAS RX'D DOXYCYCLINE AND PREDNISONE, WHICH SHE TOOK DOXYCYCLINE BUT NOT PREDNISONE. SHE DID HAVE AN HOUR LONG NEBULIZER IN THE ER WITHOUT SIGNIFICANT CHANGE IN SHORTNESS OF BREATH, ADDITIONALLY SHE WAS HYPOXIC ON PRESENTATION AND TYPICALLY DOES NOT WEAR OXYGEN. OTHERWISE SHE DID HAVE RECENT EMG'S ORDERED BY DR DIXON FOR PROGRESSIVE LE RADICULAR SYMPTOMS WITH KNOWN LUMBAR SPINAL STENOSIS Past Medical/Surgical History Medical Problems: (1) Fung's esophagus Status: Chronic (2) Benign hypertension Status: Chronic (3) Cardiac catheterization Status: Resolved (4) Chronic obstructive lung disease Status: Chronic (5) Hysterectomy Status: Resolved (6) Tonsillectomy Status: Resolved Family History FH: breast cancer FH: lung cancer Social History Smoking Status: Former Smoker Drug Use: none Marital Status: Housing status: lives with family Occupational Status: retired Immunizations History of Influenza Vaccine: N/A History of Tetanus Vaccine?: Unknown History of Pneumococcal: Yes Pneumococcal Date: Dec 23, 2007 History of Hepatitis B Vaccine: Unknown Multi-Drug Resistant Organisms History of MDRO: No Allergies Coded Allergies: Nitrofurantoin (Verified Allergy, Severe, SHORTNESS OF BREATH, 10/07/16) Terazosin (Verified Allergy, Severe, SHORTNESS OF BREATH, 10/07/16) Levofloxacin (Verified Allergy, Intermediate, SOB, pt able to take cipro w /o prob, 10/07/16) Lisinopril (Verified Allergy, Intermediate, COUGH SOB, 10/07/16) Losartan (Verified Allergy, Intermediate, SHORTNESS OF BREATH, 10/07/16) Nifedipine (Verified Allergy, Intermediate, SHORTNESS OF BREATH, 10/07/16) Amoxicillin (Verified Allergy, Unknown, HIVES, 10/07/16) Phenazopyridine (Verified Allergy, Unknown, UNKNOWN, 10/07/16) Sulfamethoxazole w/Trimethoprim (Verified Allergy, Unknown, hives, 10/07/16 ) Fluconazole (Verified Adverse Reaction, Intermediate, rash, hives, 10/07/16 ) Home Medications Scheduled Atenolol (Tenormin), 25 MG PO QAM Doxycycline Hyclate (Vibramycin), 100 MG PO BID Hydrochlorothiazide (Hctz), 50 MG PO QAM Nutritional Supplements (Bladder 2.2), 2 TABS PO DAILY Pantoprazole (Protonix), 40 MG PO BID Potassium Chloride (Potassium Chloride Er), 10 MEQ PO BID Prednisone (Prednisone), UD Tiotropium [place] (Spiriva Handihaler), 1 INHA PO DAILY Scheduled PRN Albuterol Hfa (Ventolin Hfa), 2 PUFFS INH Q4 PRN for SOB/Wheezing Review of Systems Constitutional: + weakness, No fever, No chills Respiratory: + cough, + wheezing, + shortness of breath, + dyspnea on exertion , + dyspnea at rest, No sputum Cardiovascular: No chest pain, No orthopnea, No PND, No edema, No claudication Abdomen: No pain, No nausea, No vomiting, No diarrhea Musculoskeletal: No joint pain, No muscle pain, No swelling Genitourinary - Female: No dysuria, No urinary frequency Neurologic: No memory loss, No paralysis, No weakness, No numbness/tingling Psychiatric: No depression symptoms, No anhedonism Endocrine: No fatigue, No excessive thirst Integumentary: No rash, No itch Physical Exam Vital Signs Date Time Temp Pulse Resp B/P (MAP) Pulse Ox O2 Delivery O2 Flow Rate FiO2 10/07/16 06:29 94 134/85 99 Nasal Cannula 4.0 10/07/16 06:15 96 Nasal Cannula 4.0 10/07/16 05:54 36.8 99 20 145/85 87 Room Air General Appearance: WD/WN, + moderate distress Head: normocephalic, atraumatic Eyes: PERRL, EOMI ENT: hearing grossly normal, pharynx normal Neck: supple, no JVD Respiratory/Chest: + decreased breath sounds, + accessory muscle use, + wheezing Cardiovascular: regular rate, rhythm, no murmur Abdomen/GI: normal bowel sounds, non tender, soft Back: normal inspection, no CVA tenderness, no muscle spasm Extremities/Musculoskelatal: normal inspection, no pedal edema Neurologic/Psych: alert, oriented x 3 Skin: normal color, warm/dry, no rash Diagnostics Laboratory Results Results Past 24 Hours Test 10/07/16 06:15 10/07/16 06:22 Range/Units White Blood Count 9.29 4.8-10.8 K/uL Red Blood Count 4.30 4.2-5.4 M/uL Hemoglobin 13.6 12.0-16.0 g/dL Hematocrit 41.1 37-47 % Mean Corpuscular Volume 95.6 80-100 fL Mean Corpuscular Hemoglobin 31.6 25-34 pg Mean Corpuscular Hemoglobin Concent 33.1 32-36 g/dl Platelet Count 341 130-400 K/uL Mean Platelet Volume 10.5 7.4-10.4 fL Neutrophils (%) (Auto) 67.9 % Lymphocytes (%) (Auto) 16.0 % Monocytes (%) (Auto) 13.1 % Eosinophils (%) (Auto) 2.5 % Basophils (%) (Auto) 0.3 % Neutrophils # (Auto) 6.30 1.4-6.5 K/uL Lymphocytes # (Auto) 1.49 1.2-3.4 K/uL Monocytes # (Auto) 1.22 0.11-0.59 K/uL Eosinophils # (Auto) 0.23 0-0.5 K/uL Basophils # (Auto) 0.03 0-0.2 K/uL RDW Standard Deviation 52.8 36.4-46.3 fL RDW Coefficient of Variation 15.1 11.5-14.5 % Immature Granulocyte % (Auto) 0.2 % Immature Granulocyte # (Auto) 0.02 0.00-0.02 K/uL Sodium Level 140 136-145 mmol/L Potassium Level 3.3 3.5-5.1 mmol/L Chloride Level 99 98-107 mmol/L Carbon Dioxide Level 35 21-32 mmol/L Anion Gap 6.0 3-11 mmol/L Blood Urea Nitrogen 17 7-18 mg/dl Creatinine 0.90 0.60-1.20 mg/dl Est Creatinine Clear Calc Drug Dose 45.9 ml/min Estimated GFR () 69.5 Estimated GFR (Non- 60.0 BUN/Creatinine Ratio 19.1 10-20 Random Glucose 101 70-99 mg/dl Calcium Level 9.0 8.5-10.1 mg/dl Total Creatine Kinase 78 26-192 U/L Creatine Kinase MB 0.5 0.5-3.6 ng/ml Creatine Kinase MB Ratio 0.6 0-3.0 Troponin I < 0.015 0-0.045 ng/ml Bedside Lactic Acid Venous 1.68 0.90-1.70 mmol/L CXR normal Normal EKG Impression Assessment and Plan 81 F with history of COPD presents with acute hypoxic respiratory failure and mild hypokalemia Acute hypoxic respiratory failure, COPD exacerbation with bronchitis, will use solu-medrol, nebulizers, for bronchitis, doxycycline, flutter valve to encourage expectoration and mucinex hypokalemia, add additional kcl, one dose of magnesium and follow, typically takes kcl HTN controlled continue atenolol, hold hctz DVT prevention is lovenox full code Advanced Directives Existing Living Will: Yes Existing Power of Observer [employer]: Yes (ENRIQUE TOWNSEND ) VTE Prophylaxis VTE Risk Assessment Done? Y/N: Yes Risk Level: Moderate Given or contraindicated: Enoxaparin (Lovenox)SQ
[2016-10-07] MEDS ORDERED: NON-FORMULARY MEDICATION (Potassium Chloride (Potassium Chloride Er) 10 MEQ) PO SCH (09:00)
[2016-10-07] MEDS ORDERED: MAGNESIUM SULFATE 1GM / D5W 1 GM in PREMIXED IN D5W 100 ML IV ONE (09:30)
[2016-10-07 09:41] LABS: PROTHROMBIN TIME (PATIENT) 10.7 SECONDS (9.0-12.0)
[2016-10-07] MEDS: POTASSIUM CHLORIDE 20 MEQ TABCR PO SCH ×2 (10:36→20:27)
[2016-10-07] MEDS: ALBUT/IPRATROP 3MG/0.5MG NEB 3 ML VIAL INH SCH ×3 (12:00→19:55)
[2016-10-07] MEDS: ENOXAPARIN 40 MG/0.4 ML SYR SQ SCH (12:52)
[2016-10-07] MEDS ORDERED: NURSING DECISION MEDICATION ORDER SCH (16:00)
[2016-10-07] MEDS ORDERED: COUGH DROP (SUGAR FREE) LOZ 24 LOZ/1 BOX PO PRN (16:15)
[2016-10-07] MEDS: DOXYCYCLINE HYCLATE 100 MG CAP PO SCH (20:28)
[2016-10-07] MEDS: GUAIFENESIN 600 MG TABCR PO SCH (20:28)
[2016-10-07] MEDS: PANTOprazole SOD 40 MG TAB PO SCH (20:29)
[2016-10-07] MEDS: METHYLPREDNISOLONE IV 40 MG in SYRINGE 0 ML IV SCH (20:29)
[2016-10-08] VITALS (10 sets, daily range): BP systolic 127–147; BP diastolic 74–83; PULSE 77–105; TEMP 36.6–36.8; O2SAT 90–96
[2016-10-08] MEDS: ALBUT/IPRATROP 3MG/0.5MG NEB 3 ML VIAL INH SCH ×4 (07:30→19:15)
[2016-10-08 07:44] LABS: HEMATOCRIT 39.6 % (37-47); MEAN CELL VOLUME 95.2 fL (80-100); MEAN CORPUSCULAR HEMOGLOBIN 30.3 pg (25-34); MEAN CORPUSCULAR HGB CONC 31.8 g/dl (32-36); MEAN PLATELET VOLUME 10.4 fL (7.4-10.4); PLATELET COUNT 364 K/uL (130-400); RED BLOOD COUNT 4.16 M/uL (4.2-5.4); WHITE BLOOD COUNT 17.77 K/uL (4.8-10.8)
[2016-10-08] MEDS: PANTOprazole SOD 40 MG TAB PO SCH ×2 (08:07→19:54)
[2016-10-08] MEDS: METHYLPREDNISOLONE IV 40 MG in SYRINGE 0 ML IV SCH (08:07)
[2016-10-08] MEDS: POTASSIUM CHLORIDE 20 MEQ TABCR PO SCH (08:08)
[2016-10-08] MEDS: DOXYCYCLINE HYCLATE 100 MG CAP PO SCH ×2 (08:08→19:54)
[2016-10-08] MEDS: GUAIFENESIN 600 MG TABCR PO SCH ×2 (08:09→19:54)
[2016-10-08 08:12] LABS: BUN/CREATININE RATIO 24.4 (10-20); CREATININE 0.89 mg/dl (0.60-1.20); POTASSIUM 4.1 mmol/L (3.5-5.1)
[2016-10-08 08:30] LABS: CALCIUM 8.5 mg/dl (8.5-10.1)
--- NOTE | 2016-10-08 10:15 | Hospitalist Progress Note ---
Hospitalist Progress Note Date of Service Oct 08, 2016. (Elma Sanchez PA-C) Subjective Pt evaluation today including: conversation w/ patient, physical exam, chart review, lab review, review of studies Pain: None PO Intake: Good Voiding: no voiding problems The patient was seen and examined this morning. Pt reports doing much better this morning, she has no acute complaints. Her breathing has improved today and she is not coughing. Pt is ambulating about the room on 2L O2 with adequate sats. She is eating well. Pt did not sleep overnight, but states this is normal for her. Constitutional: No fever, No chills, No sweats Eyes: No redness, No diplopia ENT: No nasal symptoms, No sore throat Respiratory: No cough, No sputum, No wheezing, No shortness of breath, No dyspnea on exertion Cardiovascular: No chest pain, No palpitations Abdomen: No pain, No nausea, No vomiting, No diarrhea, No constipation Musculoskeletal: No joint pain, No muscle pain, No swelling Female : No dysuria, No hematuria Neurologic: No weakness, No numbness/tingling Skin: No rash, No itch (Elma Sanchez PA-C) Objective Vital Signs Date Time Temp Pulse Resp B/P (MAP) Pulse Ox O2 Delivery O2 Flow Rate FiO2 10/08/16 08:23 90 Nasal Cannula 2.0 10/08/16 07:45 36.6 85 17 147/83 (104) 90 Nasal Cannula 2.0 10/08/16 07:30 77 20 93 Nasal Cannula 2.0 10/08/16 01:15 36.8 105 18 145/79 (101) 92 Nasal Cannula 2.0 10/08/16 00:00 Nasal Cannula 2.0 10/07/16 19:55 75 20 93 Nasal Cannula 2.0 10/07/16 16:36 84 20 96 Nasal Cannula 2.0 10/07/16 16:00 96 Nasal Cannula 2.0 10/07/16 15:33 36.9 99 18 102/57 (72) 91 2.0 (Elma Sanchez PA-C) Physical Exam General Appearance: WD/WN, no apparent distress Eyes: PERRL, EOMI ENT: hearing grossly normal, pharynx normal Neck: supple, no JVD Respiratory/Chest: chest non-tender, no respiratory distress, no accessory muscle use, + pertinent finding (+ expiratory wheeze RML) Cardiovascular: regular rate, rhythm, no murmur Abdomen: normal bowel sounds, non tender, soft Extremities: non-tender, no pedal edema, no calf tenderness Neurologic/Psychiatric: alert, oriented x 3 Skin: normal color, warm/dry (Elma Sanchez PA-C) Laboratory Results Last 24 Hours Test 10/08/16 07:07 White Blood Count 17.77 K/uL Red Blood Count 4.16 M/uL Hemoglobin 12.6 g/dL Hematocrit 39.6 % Mean Corpuscular Volume 95.2 fL Mean Corpuscular Hemoglobin 30.3 pg Mean Corpuscular Hemoglobin Concent 31.8 g/dl RDW Standard Deviation 52.7 fL RDW Coefficient of Variation 14.9 % Platelet Count 364 K/uL Mean Platelet Volume 10.4 fL Sodium Level 142 mmol/L Potassium Level 4.1 mmol/L Chloride Level 103 mmol/L Carbon Dioxide Level 32 mmol/L Anion Gap 7.0 mmol/L Blood Urea Nitrogen 22 mg/dl Creatinine 0.89 mg/dl Est Creatinine Clear Calc Drug Dose 46.4 ml/min Estimated GFR () 70.4 Estimated GFR (Non- 60.8 BUN/Creatinine Ratio 24.4 Random Glucose 145 mg/dl Calcium Level 8.5 mg/dl (Elma Sanchez PA-C) Assessment and Plan 81 F with history of COPD presents with acute hypoxic respiratory failure and mild hypokalemia Acute hypoxic respiratory failure, COPD exacerbation with bronchitis - Cont solu-medrol 40 mg Q12H nebulizers, doxycycline 100 mg PO BID (day #2) - flutter valve to encourage expectoration - Cont mucinex BID - Ambulating without difficulty to bathroom on 2L O2, wean as tolerated - Will likely need a 2 step O2. Hypokalemia - K+ 4.1 today, typically takes kcl - Recheck Mag this morning HTN- controlled - continue atenolol 25 mg daily, hold hctz DVT prevention is lovenox CODE STATUS: full code Disposition: From home, d/c likely within 1-2 days (Elma Sanchez PA-C) PA Physician Supervision Note: I interviewed and examined the patient. Discussed with Elma Sanchez PAC and agree with findings and plan as documented in the note. Any exceptions or clarifications are listed here: None This pt is improved with her breathing but feels <50% her baseline tremulous from steroids vitals stable tolerant of being off oxygen at rest lungs with poor airmovement and scant wheezing taper steroids to oral, continue inhaled meds and oral antibiotics Documented By: Wing Greer (Wing Greer M.D.)
[2016-10-08] MEDS: ENOXAPARIN 40 MG/0.4 ML SYR SQ SCH (11:50)
[2016-10-08] MEDS: POTASSIUM CHLORIDE 10 MEQ TABCR PO SCH (19:54)
[2016-10-08] MEDS ORDERED: NON-FORMULARY MEDICATION (Potassium Chloride (Potassium Chloride Er) 10 MEQ) PO SCH ×2 (20:00)
[2016-10-09] VITALS (9 sets, daily range): BP systolic 143–158; BP diastolic 74–90; PULSE 82–98; TEMP 36.4–36.9; O2SAT 90–97
[2016-10-09] MEDS ORDERED: LEVALBUTEROL/IPRATROPIUM NEB INH PRN (05:45)
[2016-10-09] MEDS: IPRATROPIUM BROMIDE NEB SOLN 0.02% 2.5 ML VIAL INH PRN ×2 (06:07→09:05)
[2016-10-09] MEDS: LEVALBUTEROL 1.25MG/0.5ML NEB INH PRN ×2 (06:07→09:05)
[2016-10-09] MEDS: POTASSIUM CHLORIDE 10 MEQ TABCR PO SCH ×2 (07:33→20:26)
[2016-10-09] MEDS: DOXYCYCLINE HYCLATE 100 MG CAP PO SCH ×2 (07:33→20:25)
[2016-10-09] MEDS: PANTOprazole SOD 40 MG TAB PO SCH ×2 (07:33→20:26)
[2016-10-09] MEDS: GUAIFENESIN 600 MG TABCR PO SCH ×2 (07:34→20:26)
--- NOTE | 2016-10-09 07:48 | DIAGNOSTIC IMAGING REPORT ---
CHEST ONE VIEW PORTABLE CLINICAL HISTORY: COPD exacerbation; acute dyspnea dyspnea COMPARISON STUDY: 10/07/2016 FINDINGS: Moderate emphysematous change. Mild chronic parenchymal fibrotic change. No acute infiltrate. IMPRESSION: No acute process. Chronic change. Electronically signed by: Declan Mckay M.D. 10/09/2016 7:47 AM Dictated Date/Time: 10/09/2016 7:45 AM
[2016-10-09] MEDS ORDERED: FUROSEMIDE 20 MG TAB PO ONE (11:15)
[2016-10-09] MEDS ORDERED: SODIUM CHLORIDE 0.65% NA SOLN 45 ML (OCEAN) PRN (11:15)
[2016-10-09] MEDS: ENOXAPARIN 40 MG/0.4 ML SYR SQ SCH (11:24)
[2016-10-09] MEDS: TRIAMCINOLONE ACET NASAL SPRAY 10.8ML BTL NAE SCH (11:42)
[2016-10-09] MEDS: FEXOFENADINE HCL 60 MG TAB PO SCH ×2 (11:42→20:25)
[2016-10-09] MEDS: METHYLPREDNISOLONE IV 40 MG in SYRINGE 0 ML IV SCH ×2 (11:44→20:24)
[2016-10-09] MEDS ORDERED: LEVALBUTEROL/IPRATROPIUM NEB INH SCH (13:00)
--- NOTE | 2016-10-09 15:27 | DIAGNOSTIC IMAGING REPORT ---
CT SCAN OF THE CHEST WITHOUT IV CONTRAST CLINICAL HISTORY: COPD. COMPARISON STUDY: Chest CT scans dated 12/20/2015 and 10/02/2015. TECHNIQUE: CT scan of the thorax was performed from the thoracic inlet to the upper abdomen. Images are reviewed in the axial, sagittal, and coronal planes. IV contrast was not administered for this examination. CT DOSE: 227.81 mGy.cm FINDINGS: Thyroid: Imaged portions of the thyroid gland are normal in size and attenuation. Thoracic aorta: There is atherosclerotic calcification of the thoracic aorta, which is normal in caliber and demonstrates standard 3-vessel arch anatomy. Heart: The heart is normal in size and without pericardial effusion. The coronary arteries are densely calcified. Lungs and pleural spaces: Advanced emphysema is identified. 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 The trachea and central airways are clear. There is no lobar consolidation or pleural effusion. Fibrosis and medial segmental atelectasis is again seen in the right middle lobe. The inferior right upper lobe nodular density seen on 10/02/2015 has resolved. There is patchy groundglass change with tree-in-bud nodularity identified in the left lower lobe on image #210. Mediastinum: There is no mediastinal lymphadenopathy. Keli: Not well assessed without IV contrast. Axillae: There is no axillary lymphadenopathy. Upper abdomen: Scattered hepatic cysts measure up to 2.2 cm. The partially imaged kidneys demonstrate cortical atrophy the distal esophagus is distended with debris. Skeletal structures: The skeletal structures are osteopenic. No lytic or blastic bony lesions are seen. IMPRESSION: 1. Advanced emphysema. 2. Suspect a large retained food bolus in the distal esophagus. Clinical correlation will be required. 3. There is new patchy groundglass change with tree-in-bud nodularity identified in the left lower lobe. This likely represents a mild infectious/inflammatory pneumonitis. Clinical correlation will be required. 4. The groundglass nodule in the inferior right upper lobe seen on 10/02/2015 has resolved and was likely on an inflammatory basis. 5. Additional changes as above. Electronically signed by: Koko Mascorro M.D. 10/09/2016 3:25 PM Dictated Date/Time: 10/09/2016 3:11 PM
[2016-10-09] MEDS: LEVALBUTEROL 1.25MG/0.5ML NEB INH SCH (19:15)
[2016-10-09] MEDS: IPRATROPIUM BROMIDE NEB SOLN 0.02% 2.5 ML VIAL INH SCH (19:15)
--- NOTE | 2016-10-09 20:56 | Progress Note ---
Subjective Date of Service: Oct 09, 2016. Subjective Pt evaluation today including: conversation w/ patient, conversation w/ family ( at bedside), physical exam, chart review, lab review, review of studies (chest xray from this am), review of inpatient medication list Pain: denies PO Intake: excellent Voiding: no voiding problems Patient states her breathing is no better than when she first was admitted. Had dyspnea and orthopnea in the middle of the night overnight. Continues to have orthopnea during my bedside rounds along with WATT. Some mild cough but very little sputum. Has minimal LE edema. Problem List Medical Problems: (1) Acute urticaria Status: Acute (2) Full body hives Status: Acute (3) Hypoxia Status: Acute (4) Hypoxia Status: Acute (5) Pneumonia involving right lung Status: Acute Review of Systems Constitutional: No fever, No chills Respiratory: + shortness of breath, + dyspnea on exertion Cardiac: + orthopnea, + PND, + edema Objective Vital Signs Date Time Temp Pulse Resp B/P (MAP) Pulse Ox O2 Delivery O2 Flow Rate FiO2 10/09/16 20:05 Nasal Cannula 3.0 10/09/16 19:16 87 18 94 Nasal Cannula 3.0 10/09/16 16:03 36.6 91 18 143/90 (107) 91 Nasal Cannula 3.0 10/09/16 16:00 94 Nasal Cannula 3.0 10/09/16 08:45 90 20 96 Nasal Cannula 2.0 10/09/16 07:46 95 Nasal Cannula 3.0 10/09/16 07:36 36.7 98 22 158/74 (102) 92 2.0 10/09/16 07:28 36.9 91 22 143/77 (99) 92 3.0 10/09/16 06:08 98 20 90 Nasal Cannula 2.0 10/09/16 00:11 Nasal Cannula 2.0 10/08/16 23:27 36.7 92 18 137/76 (96) 93 Room Air 2.0 Physical Exam General Appearance: no apparent distress ENT: pharynx normal Neck: + JVD Respiratory/Chest: no respiratory distress, no accessory muscle use, + pertinent finding (very poor air movement, wheezing with rhonchi; no rales) Cardiovascular: + pertinent finding (heart sounds very difficult to hear; RRR) Abdomen: normal bowel sounds, non tender, soft, no organomegaly Extremities: + pedal edema (trace b/l ) Neurologic/Psychiatric: alert, oriented x 3 Assessment and Plan 81yo female with: 1. COPD with exacerbation - ongoing. Chest x-ray w/o discrete infiltrates. I don't think there is complicating pulmonary edema clinically although she has JVD. Plan - hold prednisone. start solumedrol 40mg q8h. incentive deepti. mucinex. scheduled nebs q6h. lasix 20mg po x 1. continue doxy 100mg BID. 2. h/o pulmonary nodules - CT chest, noncontrast. This will also be helpful in the setting of #1 above. 3. DVT proph - lovenox 40mg daily. 4. CKD stage 2 - creatinine at baseline; repeat labs in am. 5. Fung's esophagus - PPI. 6. HTN - controlled. 7. constipation - add miralax. updated at bedside time 35 minutes Continued [facility] stay due to: multiple IV medications needed Discharge planning: home
[2016-10-10] VITALS (8 sets, daily range): BP systolic 117–162; BP diastolic 71–81; PULSE 78–105; TEMP 36.5–36.7; O2SAT 81–100
[2016-10-10] MEDS: IPRATROPIUM BROMIDE NEB SOLN 0.02% 2.5 ML VIAL INH SCH ×4 (01:47→18:45)
[2016-10-10] MEDS: LEVALBUTEROL 1.25MG/0.5ML NEB INH SCH ×4 (01:47→18:45)
[2016-10-10] MEDS: METHYLPREDNISOLONE IV 40 MG in SYRINGE 0 ML IV SCH ×4 (04:53→21:20)
[2016-10-10 06:35] LABS: BUN/CREATININE RATIO 39.4 (10-20); CALCIUM 8.7 mg/dl (8.5-10.1); CREATININE 0.85 mg/dl (0.60-1.20); MAGNESIUM 2.2 mg/dl (1.8-2.4)
[2016-10-10] MEDS: POLYETHYLENE (MIRALAX) 17 GM PACK PO SCH (08:34)
[2016-10-10] MEDS: TRIAMCINOLONE ACET NASAL SPRAY 10.8ML BTL NAE SCH (08:35)
[2016-10-10] MEDS: POTASSIUM CHLORIDE 10 MEQ TABCR PO SCH ×2 (08:35→21:21)
[2016-10-10] MEDS: FEXOFENADINE HCL 60 MG TAB PO SCH ×2 (08:35→21:20)
[2016-10-10] MEDS: GUAIFENESIN 600 MG TABCR PO SCH ×2 (08:36→21:22)
[2016-10-10] MEDS: PANTOprazole SOD 40 MG TAB PO SCH ×2 (08:36→21:22)
[2016-10-10] MEDS: DOXYCYCLINE HYCLATE 100 MG CAP PO SCH ×2 (08:36→21:22)
[2016-10-10] MEDS: SENNA 8.6 MG TAB PO SCH (12:52)
[2016-10-10] MEDS: ENOXAPARIN 40 MG/0.4 ML SYR SQ SCH (12:52)
[2016-10-10] MEDS ORDERED: NURSING VERBAL MED ORDER ONE (14:15)
[2016-10-10] MEDS ORDERED: ALPRAZOLAM 0.25 MG TAB PO PRN (14:15)
[2016-10-11] VITALS (10 sets, daily range): BP systolic 157–163; BP diastolic 82–86; PULSE 74–110; TEMP 36.3–36.4; O2SAT 91–98
[2016-10-11] MEDS: IPRATROPIUM BROMIDE NEB SOLN 0.02% 2.5 ML VIAL INH SCH ×4 (01:40→19:03)
[2016-10-11] MEDS: LEVALBUTEROL 1.25MG/0.5ML NEB INH SCH ×4 (01:40→19:03)
[2016-10-11] MEDS: METHYLPREDNISOLONE IV 40 MG in SYRINGE 0 ML IV SCH ×2 (03:38→11:51)
--- NOTE | 2016-10-11 05:26 | Progress Note ---
Subjective Date of Service: late entry for visit on Oct 10, 2016. Subjective Pt evaluation today including: conversation w/ patient, conversation w/ family (), physical exam, chart review, lab review, review of studies (CT chest) , review of inpatient medication list Pain: denies PO Intake: excellent Voiding: no voiding problems not as much orthopnea still with WATT with walking to bathroom no dyspnea at rest minimal cough no sputum still difficult to take deep breath now with anxious and no bowel movement yet either Problem List Medical Problems: (1) Acute urticaria Status: Acute (2) Full body hives Status: Acute (3) Hypoxia Status: Acute (4) Hypoxia Status: Acute (5) Pneumonia involving right lung Status: Acute Review of Systems Constitutional: No fever Cardiac: No edema Abdomen: + constipation, No pain Objective Vital Signs Date Time Temp Pulse Resp B/P (MAP) Pulse Ox O2 Delivery O2 Flow Rate FiO2 10/11/16 01:40 82 16 94 Nasal Cannula 3.0 10/11/16 00:00 Nasal Cannula 4.0 10/10/16 23:06 36.5 78 18 160/81 (107) 100 Nasal Cannula 4.0 10/10/16 20:00 Nasal Cannula 4.0 10/10/16 18:45 84 18 92 Nasal Cannula 3.0 10/10/16 15:57 36.7 88 18 162/75 (104) 92 Nasal Cannula 4.0 10/10/16 15:55 Nasal Cannula 3.0 10/10/16 14:28 88 20 89 Nasal Cannula 3.0 10/10/16 10:22 Nasal Cannula 2.0 10/10/16 07:17 36.5 105 16 117/71 (86) 96 Room Air 10/10/16 07:03 97 20 81 Room Air Physical Exam General Appearance: no apparent distress ENT: pharynx normal Neck: no JVD Respiratory/Chest: no respiratory distress, no accessory muscle use, + pertinent finding (still poor air movement b/l - maybe scantly better today; wheezing throughout; no rales) Cardiovascular: regular rate, rhythm, no gallop, no murmur, + pertinent finding (heart tones distant) Abdomen: normal bowel sounds, non tender, soft, no organomegaly Extremities: no pedal edema Neurologic/Psychiatric: alert, oriented x 3 Laboratory Results Last 24 Hours Test 10/10/16 05:41 Sodium Level 142 mmol/L Potassium Level 4.0 mmol/L Chloride Level 103 mmol/L Carbon Dioxide Level 30 mmol/L Anion Gap 9.0 mmol/L Blood Urea Nitrogen 33 mg/dl Creatinine 0.85 mg/dl Est Creatinine Clear Calc Drug Dose 48.6 ml/min Estimated GFR () 74.5 Estimated GFR (Non- 64.3 BUN/Creatinine Ratio 39.4 Random Glucose 147 mg/dl Calcium Level 8.7 mg/dl Magnesium Level 2.2 mg/dl Assessment and Plan 81yo female with: 1. acute hypoxic resp failure 2nd to COPD with exacerbation - ongoing. Minimal improvement overnight Cont solumedrol q8h. incentive deepti. mucinex. scheduled nebs q6h. continue doxy 100mg BID. CT chest report reviewed in detail. 2. h/o pulmonary nodules - CT chest shows resolution of such nodules. Good news. Pt aware of findings. 3. DVT proph - lovenox 40mg daily. 4. CKD stage 2 - creatinine at baseline; repeat labs in am. 5. Fung's esophagus - PPI. 6. HTN - controlled. 7. constipation - add senna to the miralax. 8. LLL pneumonia - community-acquired - doxy probably ok; if she fails to improve then broaden to levaquin. PT consultation updated at bedside Continued [facility] stay due to: multiple IV medications needed Discharge planning: home
[2016-10-11] MEDS: POLYETHYLENE (MIRALAX) 17 GM PACK PO SCH (08:00)
[2016-10-11] MEDS: PANTOprazole SOD 40 MG TAB PO SCH ×2 (08:13→19:37)
[2016-10-11] MEDS: GUAIFENESIN 600 MG TABCR PO SCH ×2 (08:13→21:00)
[2016-10-11] MEDS: DOXYCYCLINE HYCLATE 100 MG CAP PO SCH ×2 (08:13→19:39)
[2016-10-11] MEDS: SENNA 8.6 MG TAB PO SCH (08:14)
[2016-10-11] MEDS: POTASSIUM CHLORIDE 10 MEQ TABCR PO SCH ×2 (08:14→19:38)
[2016-10-11] MEDS: TRIAMCINOLONE ACET NASAL SPRAY 10.8ML BTL NAE SCH (08:14)
[2016-10-11] MEDS: FEXOFENADINE HCL 60 MG TAB PO SCH ×2 (08:14→19:38)
[2016-10-11] MEDS: ENOXAPARIN 40 MG/0.4 ML SYR SQ SCH (11:51)
[2016-10-11] MEDS ORDERED: ASPIRIN 81 MG ECTAB PO STA (12:45)
--- NOTE | 2016-10-12 00:14 | Progress Note ---
Subjective Date of Service: Oct 11, 2016. Subjective Pt evaluation today including: conversation w/ patient, conversation w/ family (), physical exam, chart review, lab review, review of studies (arterial dopplers of legs), conversation w/ collection systems consultant (orthopedics), review of inpatient medication list Pain: legs, left worse than right, with walking PO Intake: normal Voiding: no voiding problems patient reports improvement in pulmonary symptoms - can take deeper breaths, less dyspnea at rest, less cough; still with WATT, however she also mentions she saw Paula Hart last week in the orthopedic clinic was felt to have vascular claudication was sent for venous duplex and arterial duplex of left leg she is inquiring about results also mentions she "used to take zocor for cholesterol" but stopped it Problem List Medical Problems: (1) Acute urticaria Status: Acute (2) Full body hives Status: Acute (3) Hypoxia Status: Acute (4) Hypoxia Status: Acute (5) Pneumonia involving right lung Status: Acute Review of Systems Constitutional: No fever, No chills Respiratory: + cough, + dyspnea on exertion Cardiac: No chest pain, No orthopnea Abdomen: + constipation, No pain Objective Vital Signs Date Time Temp Pulse Resp B/P (MAP) Pulse Ox O2 Delivery O2 Flow Rate FiO2 10/11/16 22:19 36.4 82 18 163/82 (109) 96 Nasal Cannula 2.0 10/11/16 20:00 Nasal Cannula 3.0 10/11/16 19:03 78 16 95 Nasal Cannula 2.0 10/11/16 16:15 94 Nasal Cannula 3.0 10/11/16 16:00 91 Nasal Cannula 3.0 10/11/16 15:21 36.3 87 18 163/86 (111) 95 Nasal Cannula 4.0 10/11/16 15:01 Nasal Cannula 3.0 10/11/16 14:23 74 16 98 Nasal Cannula 3.0 10/11/16 08:30 95 Nasal Cannula 4.0 10/11/16 08:00 36.3 110 22 157/82 (107) 95 4.0 10/11/16 07:50 82 16 94 Nasal Cannula 3.0 10/11/16 01:40 82 16 94 Nasal Cannula 3.0 Physical Exam General Appearance: no apparent distress ENT: pharynx normal Neck: no JVD Respiratory/Chest: no respiratory distress, no accessory muscle use, + pertinent finding (airation improved; less wheeze; no rales) Cardiovascular: regular rate, rhythm, no gallop, no murmur Abdomen: normal bowel sounds, non tender, soft, no organomegaly Extremities: no pedal edema Neurologic/Psychiatric: alert, oriented x 3 Comments: vascular/pulses - popliteal <1+ b/l; pos tib pulses <1+ b/l; DP pulses 1+ b/l Assessment and Plan 81yo female with: 1. acute hypoxic resp failure 2nd to COPD with exacerbation - improved. Cont solumedrol but cut to q12h dosing. incentive deepti. mucinex. scheduled nebs q6h. continue doxy 100mg BID. 2. h/o pulmonary nodules - CT chest shows resolution of such nodules. 3. DVT proph - lovenox 40mg daily. 4. CKD stage 2 - creatinine at baseline; repeat labs in am. 5. Fung's esophagus - PPI. 6. HTN - controlled. 7. constipation - cont senna/miralax. 8. LLL pneumonia - community-acquired - doxy probably ok; if she fails to improve then broaden to levaquin. 9. PAD - as seen on arterial dopplers from last week. Start aspirin therapy. Check lipids but likely will need statin agent. Refer to vascular surgery at d/c. progressing Continued [facility] stay due to: multiple IV medications needed Discharge planning: home
[2016-10-12 00:17] VITALS: BP 128/68; PULSE 75; TEMP 36.5; O2SAT 98
[2016-10-12] MEDS: METHYLPREDNISOLONE IV 40 MG in SYRINGE 0 ML IV SCH ×2 (00:23→12:00)
[2016-10-12] MEDS: IPRATROPIUM BROMIDE NEB SOLN 0.02% 2.5 ML VIAL INH SCH ×3 (02:21→14:16)
[2016-10-12 02:22] VITALS: PULSE 72; O2SAT 94
[2016-10-12] MEDS: LEVALBUTEROL 1.25MG/0.5ML NEB INH SCH ×3 (02:22→14:16)
[2016-10-12 07:11] VITALS: PULSE 73; O2SAT 95
[2016-10-12 07:22] VITALS: BP 157/66; PULSE 79; TEMP 36.7; O2SAT 96
[2016-10-12] MEDS ORDERED: ASPIRIN 81 MG ECTAB PO SCH (08:00)
[2016-10-12 08:15] LABS: HEMATOCRIT 40.9 % (37-47); MEAN CELL VOLUME 96.2 fL (80-100); MEAN CORPUSCULAR HEMOGLOBIN 31.1 pg (25-34); MEAN CORPUSCULAR HGB CONC 32.3 g/dl (32-36); MEAN PLATELET VOLUME 10.7 fL (7.4-10.4); PLATELET COUNT 339 K/uL (130-400); RED BLOOD COUNT 4.25 M/uL (4.2-5.4); WHITE BLOOD COUNT 11.71 K/uL (4.8-10.8)
[2016-10-12] MEDS: POLYETHYLENE (MIRALAX) 17 GM PACK PO SCH (08:43)
[2016-10-12] MEDS: PANTOprazole SOD 40 MG TAB PO SCH (08:43)
[2016-10-12] MEDS: TRIAMCINOLONE ACET NASAL SPRAY 10.8ML BTL NAE SCH (08:43)
[2016-10-12] MEDS: GUAIFENESIN 600 MG TABCR PO SCH (08:43)
[2016-10-12] MEDS: POTASSIUM CHLORIDE 10 MEQ TABCR PO SCH (08:44)
[2016-10-12] MEDS: SENNA 8.6 MG TAB PO SCH (08:44)
[2016-10-12] MEDS: FEXOFENADINE HCL 60 MG TAB PO SCH (08:45)
[2016-10-12] MEDS: DOXYCYCLINE HYCLATE 100 MG CAP PO SCH (08:45)
[2016-10-12 08:52] LABS: BUN/CREATININE RATIO 36.2 (10-20); POTASSIUM 4.1 mmol/L (3.5-5.1)
[2016-10-12 08:55] LABS: CHOLESTEROL/HDL RATIO 4.6
[2016-10-12 09:06] LABS: CALCIUM 8.8 mg/dl (8.5-10.1)
[2016-10-12] MEDS: ENOXAPARIN 40 MG/0.4 ML SYR SQ SCH (12:00)
[2016-10-12 14:16] VITALS: PULSE 83; O2SAT 93
[2016-10-12] MEDS ORDERED: HYDR50TA3 PO (15:38)
[2016-10-12] MEDS ORDERED: ATOR-24 PO (15:38)
[2016-10-12] MEDS ORDERED: ALL60 PO (15:38)
[2016-10-12] MEDS ORDERED: TRIA1SPR4 NAE (15:38)
[2016-10-12] MEDS ORDERED: ASPEC81 PO (15:38)
[2016-10-12] MEDS ORDERED: ALBINS PO (15:38)
[2016-10-12] MEDS ORDERED: PRED10TA PO (15:38)
[2016-10-12] MEDS ORDERED: GFNSR600 PO (15:38)
[2016-10-12 15:44] VITALS: BP 157/66; PULSE 83; TEMP 36.7; O2SAT 93
--- NOTE | 2016-10-12 15:47 | Discharge Instructions ---
Discharge Instructions Date of Service Oct 12, 2016. Admission Reason for Admission: Acute Bronchitis / COPD exacerbation Discharge Discharge Diagnosis / Problem: acute bronchitis - improved. Possible left lower lobe pneumonia. Discharge Goals Goal(s): Learn about illness, Diagnostic testing, Therapeutic intervention Activity Recommendations Activity Limitations: as noted below Lifting Limitations: gradually increase as tolerated Exercise/Sports Limitations: gradually increase as tolerated Driving or Machine Use: no limitations . Instructions / Follow-Up Instructions / Follow-Up From Dr. Awan - 1. COPD exacerbation - do the following: * take a 10-day prednisone course. Begin this TOMORROW on 10/13/16. Take the prednisone with food. * finish your doxycycline antibiotic. Take your first dose TONIGHT with food. * know that doxycycline can cause a rash if you go out in the sun. Cover up when in the sun and use sunscreen while on the doxycycline. * purchase the nebulizer machine from [employer] on the [address] [employer] * the albuterol nebs for the machine can be picked up at [facility] * use the albuterol nebs every 6 hours (four times a day) at least for the next week, then you can gradually taper off of it and use as needed thereafter * may take [id number] mucinex up to 1200mg twice a day for cough * avoid people who are ill for the next couple of weeks as you recover from this illness * keep doing your incentive spirometry for the next 2-3 days * continue your spiriva and other inhalers as previous 2. sinus/nasal congestion - do the following: * use nasacort 2 sprays in each nostril every day * use vafp-[id number] deyvi 60mg up to twice a day * saline spray is also OK 3. peripheral artery disease of legs (hardening of the arteries of the legs - "poor circulation") - do the following: * take baby aspirin ( 81mg ) once daily every day; take with food * take lipitor for your cholesterol every day - this has been sent to the [facility] pharmacy in [place] * see Dr. Salamanca for your circulation ([facility]) 4. LOWER your hydrochlorothiazide to 25mg (1/2 tablet) once daily. 5. follow-up appointments - * see Dr. Nicolas's office early next week * see Dr. Salamanca's office - first available appointment - for your circulation in your legs 6. Return to [facility] ER if - * you have fever over 100.4 degrees * you have worsening shortness of breath, cough productive of blood, chest pain Current Hospital Diet Patient's current hospital diet: Regular Diet Discharge Diet Recommended Diet: AHA Diet (Heart Healthy) Procedures Procedures Performed: CAT scan of chest - the nodules have RESOLVED. Possible left lower lobe pneumonia also seen. Pending Studies Studies pending at discharge: no Laboratory Results Lipid Panel Test 10/12/16 07:23 Range/Units Triglycerides Level 106 0-150 mg/dl Cholesterol Level 188 0-200 mg/dl HDL Cholesterol 41 mg/dl Cholesterol/HDL Ratio 4.6 LDL Cholesterol, Calculated 126 mg/dl Medical Emergencies . Who to Call and When: Medical Emergencies: If at any time you feel your situation is an emergency, please call 911 immediately. . Non-Emergent Contact Non-Emergency issues call your: Primary Care Provider Call Non-Emergent contact if: temperature is above 100.5, you have any medication questions . . "Provider Documentation" section prepared by Suresh Awan. . VTE Core Measure Inpt VTE Proph given/why not?: Enoxaparin (Lovenox)SQ
[2016-11-10] MEDS ORDERED: OXYC-57 PO (11:08)
[2016-11-10] MEDS ORDERED: CLOP1TAB5 PO (11:49)
== END 2016-10-12 16:27 | disposition home or self-care (01) | DRG 189 ==
LOC: C.EDB 05:50 → C.4E 08:04 → ENRESERV 08:13 → C.MS2W 10-11 21:58
PROVIDERS: ADMIT Internal Medicine; ATTEND Internal Medicine
DX: J96.01 Acute respiratory failure with hypoxia (principal); J18.9 Pneumonia, unspecified organism; J44.1 Chronic obstructive pulmonary disease with (acute) exacerbation; I74.9 Embolism and thrombosis of unspecified artery; I12.9 Hypertensive chronic kidney disease with stage 1 through stage 4 chronic kidney disease, or unspecified chronic kidney disease; N18.2 Chronic kidney disease, stage 2 (mild); K59.00 Constipation, unspecified; I73.9 Peripheral vascular disease, unspecified; E87.6 Hypokalemia; K22.70 Barrett's esophagus without dysplasia; Z87.09 Personal history of other diseases of the respiratory system; Z79.899 Other long term (current) drug therapy; Z87.891 Personal history of nicotine dependence; Z79.52 Long term (current) use of systemic steroids; R29.898 Other symptoms and signs involving the musculoskeletal system

== ENCOUNTER → 2016-10-23 | Outpatient (CLI) | payer OTHER ==
[~2016-10-23] MED LIST changes: +ALBINS PO; -ALBU18002 INH; +ALL60 PO; +ASPEC81 PO; +ATOR-24 PO; +CLOP1TAB5 PO; +GFNSR600 PO; +NUTR1TAB3 PO; +OPTIRAY 320 IV PRN; +OXYC-57 PO; -POTA-327 PO; +POTA-74 PO; -PRED10TA; +PRED10TA PO; +SPRIN/30 PO; -TIOTCAP INH; +TRIA1SPR4 NAE; +VNTHFA/IN INH; -[UNRECOGNIZED DRUG - OTHER] PO
--- NOTE | 2016-10-23 11:48 | DIAGNOSTIC IMAGING REPORT ---
CT angiogram ANGIO AA SUSHILA LE RUNOFF CLINICAL HISTORY: ATHERSOSCEROSIS, ROSEBUD ARTERIES OF EXTREMITIES W/ TECHNIQUE: Transaxial acquisition with multi axial reformatted images COMPARISON STUDY: 09/26/2013 FINDINGS: Considerable atherosclerotic change of the abdominal aorta. No evidence for aneurysm or high-grade stenotic process. High-grade stenosis in or near occlusion of the origin of the celiac axis. Moderate atherosclerotic narrowing origin of the superior mesenteric artery. The inferior mesenteric artery appears patent. Considerable atherosclerotic change with mild multifocal narrowing of the left iliac artery. Critical narrowing of the origin and or proximal aspect of the right iliac artery with diminished flow characteristics to the right iliac as well as deep iliac arterial vasculature. Femoral arteries appear patent bilaterally but show moderate atherosclerotic change. Partial collateral flow at the origin of the right superficial femoral artery. The runoff vasculature shows a three-vessel runoff to both legs. Lower legs as well as thighs demonstrate moderate multilevel atherosclerotic change with no additional high-grade stenotic process. IMPRESSION: 1. Extensive atherosclerotic change of the abdominal aorta with no significant stenotic process. 2. High-grade/critical stenosis celiac axis with mild narrowing of the origin of the superior mesenteric artery. 3. High-grade stenosis proximal right iliac artery with dampened and/or diminished flow characteristics through the arterial structures of the right hemipelvis 4. This most likely creates inflow disease with diminished flow to the right common femoral artery. Partial collateral flow is identified to the proximal common femoral artery 5 moderate multilevel arterial occlusive change throughout all runoff vessels of the thigh and lower legs although a critical additional stenotic process is not seen. Electronically signed by: Declan Mckay M.D. 10/23/2016 11:46 AM Dictated Date/Time: 10/23/2016 11:37 AM
== END | disposition home or self-care (01) ==
LOC: C.CTS 10:42
PROVIDERS: ATTEND Physician Assistant
DX: I70.213 Atherosclerosis of native arteries of extremities with intermittent claudication, bilateral legs (principal); I77.4 Celiac artery compression syndrome; I77.1 Stricture of artery

== ENCOUNTER 2016-11-10 06:05 | Day surgery (SDC) | payer OTHER ==
[2016-11-10] VITALS (9 sets, daily range): BP systolic 118–192; BP diastolic 59–87; PULSE 55–78; TEMP 36.6–36.9; O2SAT 92–100; Ht 157.5 cm; Wt 72.7 kg
[~2016-11-10] VITALS: Ht 157.5 cm; Wt 72.7 kg
[~2016-11-10 06:05] MED LIST changes: +CLINDAMYCIN 600 MG/54 ML D5W IV SCH; -CLOP1TAB5 PO; -OPTIRAY 320 IV PRN; -OXYC-57 PO; +SODIUM CHLORIDE 0.9% 1000ML 1,000 ML IV SCH
--- NOTE | 2016-11-10 06:18 | History and Physical ---
History & Physical Date of Service Nov 10, 2016. History & Physical CC: Right leg pain when walking HIP: Ms. Rankin states that she has been having chronic discomfort in her right buttock side hip, which is brought on by ambulation. She states that she is probably only able to walk about 50 steps or so, and if going up stairs, she has to stop multiple times before climbing one flight of stairs due to the discomfort in her right thigh. She denies any discomfort in her calf muscle. She denies any rest pain or nonhealing wounds or ulcerations. She was recently in the hospital for a COPD exacerbation and started on antibiotics. She states that since this recent illness she is short of breath in addition to having the discomfort in her right thigh when she attempts ambulation. She denies any previous knowledge of arterial disease, but does state that she has been seeing Dr. Sincere Art at the [facility] for some spinal stenosis and spinal problems. She denies headaches, fevers, chills, dizziness, chest pain, shortness of breath, abdominal pain, nausea, vomiting, diarrhea, constipation, dysuria, hematuria, rest pain, nonhealing wounds or ulcers, or other complaints. HER ALLERGIES INCLUDES HYTRIN, LEVAQUIN, LISINOPRIL, LOSARTAN, MACRODANTIN, NIFEDIAC, NITROFURANTOIN, PENICILLIN, PHENAZOPYRIDINE, AND TERAZOSIN. Her home medications are reconciled in the chart include the following, albuterol, aspirin, atenolol, atorvastatin, Bladder 2.2 oral tablet, fexofenadine, hydrochlorothiazide, magnesium, Mucinex, Nasacort Allergy, pantoprazole, potassium chloride, prednisone, ProAir HFA, Spiriva, and vitamin D3. Her past medical history is positive for COPD, Fung esophagus, hypertension, bladder cancer, gastroesophageal reflux disease, hyperlipidemia, and pulmonary nodule. Past surgical history, positive for tonsillectomy, hemorrhoidectomy, cystoscopy , colonoscopy, cataract surgery, hysterectomy, and punch biopsy. Family history, positive for hypertension, skin cancer, and circulation problems. Her social history is positive for a past history of tobacco use. The patient quit smoking 1 pack a day in 2016. She does not drink alcohol or use any illicit drugs. Review of systems is negative for fatigue, fevers, sweats, weight loss, abnormal moles or rashes, vision changes or photophobia, ear pain, sinus problems, or sore throat. She does admit cough and dyspnea on exertion. Did have recent COPD exacerbation. She denies chest pain, abdominal pain, nausea, vomiting, diarrhea, constipation, dysuria, hematuria, muscle weakness, headaches , dizziness, numbness, or seizures. On physical exam, her vital signs stable as follows: Blood pressure 112/70 in the right arm and 118/66 in the left, heart rate is 66, respiratory rate is 16, and oxygen 96% on room air. The patient is 157.48 cm tall and weighs 71 kg. Constitutional: In general, the patient is a mildly chronically ill-appearing, elderly female, in no acute distress. She ambulates without assistance and is active, alert, and oriented x4, with normal recent and remote memory. Head is normocephalic and atraumatic. Eyes are EOMI. ENMT exam demonstrates no hearing loss, rhinorrhea, or pharyngeal erythema. Neck is supple and nontender with a midline trachea without masses or crepitus. Her lung exam demonstrates a decreased sounds throughout, some mild expiratory wheezing noted, otherwise are clear. Cardiovascular exam demonstrates a nondisplaced apical impulse with a regular rate and rhythm. Peripheral pulses are full and equal unless otherwise noted. Specifically, there are normal carotid, brachial, and radial pulses. The patient's left femoral is +2. Her right femoral is nonpalpable. Her lower extremity distal pulses are nonpalpable bilaterally. She has brisk capillary refill. No sign of distal ischemia. She does demonstrate a left- sided abdominal bruit, but no carotid bruit. Abdomen is soft and nontender with normoactive bowel sounds in all 4 quadrants. No guarding or rebound. There is no flank or CVA tenderness. Musculoskeletal exam demonstrates normal tone and strength for age. Bilateral upper extremities demonstrate no cyanosis , edema, clubbing, varicosities, or ulcers. The patient's bilateral lower extremities demonstrate no cyanosis, edema, clubbing, varicosities, or ulcers. Neurologically, the patient is grossly intact. Cranial nerves are grossly intact. The patient's assessment is peripheral arterial disease with right hip and thigh claudication. Plan The patient is admitted for arteriography and possible intervention. I have discussed the risks options and benefits of the procedure with the patient. The patient understands the risks options and benefits and agrees to the procedure.
--- NOTE | 2016-11-10 06:18 | Procedure Note ---
Pre-Mod Sedation Assessment General Date of Moderate Sedation: Nov 10, 2016. Pre-Sedation Airway Assessment Smoking Status: Former Smoker Mallampati Classification: Class I ASA Classification: Class III Notes The planned sedation has been discussed with the patient and consent obtained. I have identified the patient, determined the appropriateness of sedation and have assessed the patient immediately prior to the procedure. All medicine(s) and interventions are by my order.
[2016-11-10 07:21] LABS: CREATININE 0.74 mg/dl (0.60-1.20)
[2016-11-10] MEDS ORDERED: FENTANYL CITRATE INJ 50 MCG/1 ML 2 ML VIAL ONE ×2 (07:35→09:53)
[2016-11-10] MEDS ORDERED: MIDAZOLAM HCL 1 MG/ML 2ML VIAL ONE ×2 (07:36→09:53)
[2016-11-10] MEDS ORDERED: HEPARIN SOD (PORCINE) 1000 UNIT/ML 10 ML VIAL ONE (07:37)
--- NOTE | 2016-11-10 07:37 | History & Physical Bridge Note ---
H&P Re-Evaluation Bridge Note: I have examined the patient, reviewed the History & Physical and in the interval since the performance of the History & Physical I have noted the following changes of clinical significance: No changes noted
[2016-11-10] MEDS ORDERED: MIDAZOLAM HCL 1 MG/ML 2ML VIAL IV ONE ×2 (08:15→09:54)
[2016-11-10] MEDS ORDERED: LIDOCAINE HCL 1% 20 ML VIAL SQ ONE (08:15)
[2016-11-10] MEDS ORDERED: FENTANYL CITRATE INJ 50 MCG/1 ML 2 ML VIAL IV ONE ×3 (08:15→09:54)
[2016-11-10] MEDS ORDERED: HEPARIN SOD (PORCINE) 1000 UNIT/ML 10 ML VIAL IV ONE ×2 (09:23→10:05)
--- NOTE | 2016-11-10 10:41 | [facility] Post Operative Brief Note ---
Immediate Operative Summary Operative Date Nov 10, 2016. Pre-Operative Diagnosis Right illiac artery occlusion. Post-Operative Diagnosis Same. Procedure(s) Performed Stenting bilateral common iliac artery, Stenting external iliac artery, mechanical closure bilateral femoral artery, moderate sedation from [id number]. Surgeon [address] 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
--- NOTE | 2016-11-10 10:41 | Procedure Note ---
Post-Moderate Sedation Plan General Date of Moderate Sedation Nov 10, 2016. Vital Signs: Vital Signs Past 12 Hours Date Time Temp Pulse Resp B/P (MAP) Pulse Ox O2 Delivery O2 Flow Rate FiO2 11/10/16 07:42 36.6 75 18 154/63 96 Room Air 11/10/16 06:50 36.6 75 18 154/63 (93) 96 Room Air Review - Discharge Plan Post Moderate Sedation Plan: On clinical assessment, the patient appears to have tolerated the conscious sedation without complications. Patient is recovering as anticipated. Patient will continue to be monitored by nursing and may be discharged when conscious sedation discharge criteria are met.
[2016-11-10] MEDS ORDERED: SODIUM CHLORIDE 0.9% 1000ML 1,000 ML IV SCH (10:42)
--- NOTE | 2016-11-10 10:42 | Discharge Instructions ---
Discharge Instructions Date of Service Nov 10, 2016. 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 Post Anesthesia Instructions: If you have had General Anesthesia or IV Sedation: * Do not drive today. * Resume driving when surgeon permits. * Do not make important decisions or sign legal documents today. * Call surgeon for: 1. Temperature elevations greater than 101 degrees F. 2. Uncontrollable pain. 3. Excessive bleeding. 4. Persistent nausea and vomiting. 5. Medication intolerance (nausea, vomiting or rash). * For nausea and vomiting use only clear liquids such as: tea, soda, bouillon until nausea subsides, then gradually increase diet as tolerated. * If you have any concerns or questions, call your surgeon's office. If physician is unavailable and it is an emergency, call 911 or go to the nearest emergency room. . Instructions / Follow-Up Instructions / Follow-Up Call [phone] to schedule a follow up appointment if one not already scheduled. SPECIAL CARE INSTRUCTIONS: Medications: * Continue to take your medications as directed. If you have been given a prescription for Plavix, please fill it immediately and take as directed. Incision Care: * Your puncture site may have some bruising and minor swelling for about one week. * You will have a small dressing covering your puncture site. You may remove the dressing after 24 hours and shower. You may let the warm soapy water run over it, but be sure to dry the puncture site well and keep it dry. * DO NOT IMMERSE THE INCISION IN A TUB/POOL/etc. UNTIL HEALED. * Puncture sites should be kept covered with a band-aid until it begins to heal. Restrictions: * Depending on whether you leg or arm was punctured to access the arteries, you will be required to lay flat, hold your arm still, or both, for about 4 hours after the procedure to prevent bleeding. * Limit your activity for the first 48 hours. You may walk and go up and down steps. Avoid excessive bending or movement at the puncture site. Possible Complications: * Excessive Swelling - after blood flow is improved you may notice increased swelling in the lower legs. This is a normal response. This usually depends on the amount of blockages in the leg, how long they have been there prior to your procedure and how much blood flow was restored. Elevating your legs will help to improve this. Please notify our office ([phone] ) if the swelling does not go away after lying in bed overnight. * Infection/Drainage/Bleeding - Drainage or bleeding from the puncture site should be minimal. If you have excessive bleeding or drainage, call our office ([phone]) right away. * Pain - You may experience some mild pain or soreness at your puncture site. If your pain does not improve, please contact our office ([phone]). Call your doctor and seek emergent treatment if you develop: * Temperature above 101 degrees * Any fever or chills * Any redness or purulent drainage from the puncture site * Any new dusky/blue colored toes or feet with coolness or sharp or aching pain. SKIN IRRITATION: * You may experience some redness and/or swelling in the area where radiation was administered. If any skin irritation occurs, please contact your family physician. FOLLOW UP VISIT: Keep any scheduled doctor appointments. Diet Recommendations Recommended Home Diet: resume previous diet Procedures Procedures Performed: Stenting bilateral common iliac artery, Stenting external iliac artery, mechanical closure bilateral femoral artery, moderate sedation from [id number]. Pending Studies Studies pending at discharge: no Medical Emergencies . Who to Call and When: Medical Emergencies: If at any time you feel your situation is an emergency, please call 911 immediately. . Non-Emergent Contact Non-Emergency issues call your: Surgeon . . "Provider Documentation" section prepared by Weston Salamanca. .
[2016-11-10] MEDS ORDERED: IODIXANOL (VISIPAQUE) 270 MG/ML 150ML IV ONE (10:47)
[2016-11-10] MEDS ORDERED: OXYC-57 PO (11:08)
[2016-11-10] MEDS ORDERED: OXYCODONE/ACETAMINOPHEN 5-325 TAB PO PRN (11:15)
[2016-11-10] MEDS ORDERED: OXYCODONE/ACETAMINOPHEN 5-325 TAB ONE (11:26)
[2016-11-10] MEDS ORDERED: CLOP1TAB5 PO (11:49)
--- NOTE | 2016-11-10 11:57 | DIAGNOSTIC IMAGING REPORT ---
DATE OF PROCEDURE: 11/10/2016 DATE OF PROCEDURE: 11/10/2016. 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 POSTOPERATIVE DIAGNOSIS: Same. PROCEDURES: 1. Stenting of the bilateral common iliac arteries. 2. Stenting of the right external iliac artery. 3. Mechanical closure of bilateral femoral arteries. 4. Moderate sedation 139 minutes. SURGEON: Dr. Salamanca. ANESTHETIC: Local with sedation. PROCEDURE INDICATIONS: The patient is an 81-year-old female who has severe claudication of her right lower extremity. This is in the buttock and hip area. It has gotten progressively worse. Endovascular attempt at revascularization was recommended. She understood the risks, options and benefits and agreed to have this procedure. PROCEDURE: The patient was taken to the angiogram suite and placed in the supine position. After both groins were prepped and draped in a sterile manner, local anesthetic was administered. Percutaneous puncture was made of the left common femoral artery and a 5-Libyan sheath was inserted. A pigtail was inserted over the wire into the abdominal aorta. Aortography was performed as well as the pelvic runoff. This showed the right common and external iliac arteries to be totally occluded. The right internal iliac reconstituted just beyond its origin. The right common femoral artery was patent as well as the origins of the superficial femoral and profunda femoral arteries on the right side. Next, local anesthetic was administered in the right groin and a percutaneous puncture was made of the right common femoral artery. The wire was inserted. A 5-Libyan sheath was inserted over the wire. We then used a Glidewire to try and cannulate the right side from the right groin. This went subintimal all the way up into the aorta. Wire was pulled back. We tried using a Quick-Cross and then again we could not cannulate the true lumen or reenter in the aorta. We then tried to come from the other side with a Sim 1 and then the rim again we could pass the wire slightly into the common iliac artery approximately half way into the common iliac, but could not come down any further. We then retried from the right side. This time the wire went up through the bifurcation and actually cannulated the left side from the right and reentered in the mid common iliac artery. This wire was then snared from the left side after exchanging the sheath to a 6-Libyan sheath. The wire was brought out the left femoral sheath as a rail. We then tried to manipulate the wire back up into the aorta. We finally ending doing this and changing the sheath on the left side to an 8-Libyan destination. We passed a Quick-Cross over the wire from the right groin to the left side. We snared both the left femoral wire which is at the aorta and the wire with the Quick-Cross on the right side and pushed both these as well as the 8-Libyan sheath up into the aorta. Once all 3 of these were in the distal aorta the snare was removed. The wire from the left side was pulled back and was able to be passed upward into the aorta. The 8-Libyan destination sheath was pulled back to the external iliac on the left side. Pigtail was inserted through the right side. The wire was removed. An aortogram showed that this catheter was now true lumen on the left side and on the right. We then exchanged wires using catheters to Gema wires on both sides. We decided to do kissing stents due to dissection up in the bifurcation. We used a 9 x 39 on the left and 8 x 59 on the right. These were deployed in a kissing stent fashion. We then extended the right side downward. We first deployed a 7 x 59 from distal external iliac up into just beyond the origin of the internal and then bridged this with the previously placed stent with another 8 x 39. Left side being that there was a reentry point beyond this stent we placed another 9 x 39 stent. These were all ballooned to a maximal diameter. Completion arteriogram done at that time showed both common iliac arteries to be widely patent with excellent flow down through the external into the common femoral arteries. Looking at the puncture sites they were actually in the superficial femoral artery. The superficial femoral arteries on both sides are fairly large. We therefore attempted closure with the Star closure device and had good closure on both sides. There was excellent Doppler signals in the feet at the end of the procedure. The patient left the angio suite in good condition and tolerated the procedure well.
[2016-11-10] MEDS ORDERED: CLOPIDOGREL BISULFATE 300 MG TAB PO SCH (12:00)
[2016-11-24] MEDS ORDERED: SODIUM CHLORIDE 0.9% 1000ML 1,000 ML IV SCH (06:00)
[2016-11-24] MEDS ORDERED: CLINDAMYCIN 600 MG/54 ML D5W IV SCH (06:00)
== END 2016-11-10 14:20 | disposition home or self-care (01) ==
LOC: C.ACU 06:05
PROVIDERS: ATTEND Surgery Vascular Surgery
DX: I74.5 Embolism and thrombosis of iliac artery (principal); J44.9 Chronic obstructive pulmonary disease, unspecified; I10 Essential (primary) hypertension; K21.9 Gastro-esophageal reflux disease without esophagitis; E78.5 Hyperlipidemia, unspecified; K22.70 Barrett's esophagus without dysplasia; Z87.891 Personal history of nicotine dependence; Z82.49 Family history of ischemic heart disease and other diseases of the circulatory system

== ENCOUNTER → 2016-12-22 | Outpatient (CLI) | payer OTHER ==
[~2016-12-22] MED LIST changes: -CLINDAMYCIN 600 MG/54 ML D5W IV SCH; +CLOP1TAB5 PO; -DOXY100C2 PO; -GFNSR600 PO; +OXYC-57 PO; -PRED10TA PO; -SODIUM CHLORIDE 0.9% 1000ML 1,000 ML IV SCH
--- NOTE | 2016-12-22 13:10 | DIAGNOSTIC IMAGING REPORT ---
(CHEST) THORAX WITHOUT CLINICAL HISTORY: 81 years-old Female presenting with NODULE. TECHNIQUE: Multidetector CT imaging of the chest was performed without the use of intravenous contrast. IV contrast: None. A dose lowering technique was used consistent with the principles of ALARA (as low as reasonably achievable). COMPARISON: . CT DOSE (mGy.cm): The estimated cumulative dose is 270.58 mGycm. FINDINGS: [employer] topogram: Unremarkable. On soft tissue windows, normal thyroid and thoracic inlet. No axillary, supraclavicular, hilar, or mediastinal lymphadenopathy. Atherosclerosis of aortic arch. Coronary artery calcification. Normal heart size. No pericardial or pleural effusion. Multiple well-defined hypodensities in the liver unchanged from prior, indeterminate but likely hepatic cysts or hamartomas. On lung windows, moderate apical predominant emphysema. Persistent wedgelike consolidation with associated volume loss in the right middle lobe, likely atelectasis. Bronchi to the right middle lobe remain patent. Minimal bandlike opacities at the lung bases likely atelectasis or scarring, also unchanged. Mild bronchial wall thickening greatest in the lower lobes. Interval resolution of previously noted glass nodularity in the left lower lobe. The solid left lower lobe nodule now measures 7 mm, previously 8 mm (series 4 image 229). No additional pulmonary nodule is evident or no new focal infiltrate. Calcified granuloma noted in the left upper lobe. On bone windows, minimal degenerative changes of the spine. IMPRESSION: 1. Moderate emphysema and bronchial wall thickening. 2. Interval resolution of prior groundglass nodular opacities in the left lower lobe. This is consistent with a prior infectious or inflammatory etiology. 3. Persistent right middle lobe atelectasis. 4. Stable 7 mm solid pulmonary nodule in the left lower lobe. Follow-up per Fleischner Society 2017 recommendations below. Please refer to below summary of Fleischner Society 2017 recommendations for follow-up of incidental CT nodules (H Josh et al. Guidelines for management of incidental pulmonary nodules detected on CT images: From the Fleischner Society 2017. Radiology 2017; 284: 228-243.) SOLID NODULES Single nodule; size <6 mm * Low risk patients: No routine follow-up * High risk patients: Optional CT at 12 months Single nodule; size 6-8 mm * Low risk patients: CT at 6-12 months, then consider CT at 18-24 months * High risk patients: CT at 6-12 months, then at 18-24 months Single nodule; size >8 mm * Either low or high risk patients: Considered CT at 3 months, PET/CT, or tissue sampling Multiple nodules; size <6 mm * Low risk patients: No routine follow up * High risk patients: Optional CT at 12 months Multiple nodules; size 6-8 mm * Low risk patients: CT at 3-6 months, then consider CT at 18-24 months * High risk patients: CT at 3-6 months, then at 18-24 months Multiple nodules; size >8 mm * Low risk patients: CT at 3-6 months, then consider at 18-24 months * High risk patients: CT at 3-6 months, then at 18-24 months Note: These guidelines apply to incidental nodules. These guidelines did not apply to patients younger than 35 years, immunocompromised patients, or patients with cancer. * Low risk patients: Minimal or absent history of smoking and/or other known risk factors * High risk patients: History of smoking, exposure to other carcinogens, emphysema, fibrosis, upper lobe location, family history of lung cancer, etc. * If a nodule up to 8 mm is partly solid or is ground glass further follow-up is required after 24 months to exclude possible slow growing adenocarcinoma SUBSOLID NODULES Single ground-glass nodule * Nodule size < 6 mm: No routine follow-up * Nodule size > or = 6 mm: CT at 6-12 months to confirm persistence, then CT every 2 years until 5 years Single part-solid nodule * Nodule size < 6 mm: No routine follow-up * Nodules size > or = 6 mm: CT at 3-6 months to confirm persistence. If unchanged and solid component remains < 6 mm, annual CT should be performed for 5 years Multiple nodules * Nodule size < 6 mm: CT at 3-6 months. If stable, consider CT at 2 and 4 years. * Nodules size > or = 6 mm: CT at 3-6 months. Subsequent management based on the most suspicious nodule(s) Electronically signed by: Johny Yepez M.D. 12/22/2016 1:09 PM Dictated Date/Time: 12/22/2016 1:02 PM
== END | disposition home or self-care (01) ==
LOC: C.CTS 12:25
PROVIDERS: ATTEND Internal Medicine
DX: R91.1 Solitary pulmonary nodule (principal)

== ENCOUNTER → 2017-05-31 | Outpatient (CLI) | payer OTHER ==
[~2017-05-31] MED LIST changes: +CEPH500C2 PO; +HYDR-5688 PO; -OXYC-57 PO
--- NOTE | 2017-05-31 12:39 | DIAGNOSTIC IMAGING REPORT ---
ULTRASOUND R VENOUS DOPP LOWER EXT UNILAT CLINICAL HISTORY: RIGHT LEG PAIN AND SWELLING COMPARISON STUDY: No previous studies for comparison. FINDINGS: Real-time and color flow Doppler imaging were performed. Flow was seen within the femoral, popliteal and calf veins with no intraluminal thrombus demonstrated. The saphenous vein is patent. IMPRESSION: No evidence of right lower extremity DVT. Electronically signed by: Meek Martin M.D. 05/31/2017 12:38 PM Dictated Date/Time: 05/31/2017 12:37 PM
== END | disposition home or self-care (01) ==
LOC: C.ULTR 12:05
PROVIDERS: ATTEND Physician Assistant Medical
DX: M79.604 Pain in right leg (principal)

== ENCOUNTER 2017-06-01 16:45 | Emergency (ER) | payer OTHER ==
[~2017-06-01] VITALS: Ht 157.5 cm; Wt 72.0 kg
[~2017-06-01 16:45] MED LIST changes: -CEPH500C2 PO; -HYDR-5688 PO
[2017-06-01 16:55] VITALS: TEMP 36.7; Ht 157.5 cm; Wt 72.0 kg
[2017-06-01] MEDS ORDERED: HYDR-5688 PO (17:16)
[2017-06-01] MEDS ORDERED: HYDR50TA3 PO (17:20)
[2017-06-01] MEDS ORDERED: CEPH500C2 PO (17:20)
[2017-06-01 17:28] VITALS: BP 172/67; PULSE 74; O2SAT 97
--- NOTE | 2017-06-01 23:44 | EMERGENCY ROOM VISIT NOTE ---
History First contact with patient: 17:03 Chief Complaint: FOOT PAIN Stated Complaint: RIGHT HEEL PAIN History of Present Illness The patient is a 81 year old female who presents to the Emergency Room with complaints of pain on the plantar aspect of her right foot. The patient states that she went to a shrimp cleaner where she had several plantar warts shaved last week. She has had this performed in the past, but is now complaining of worsening pain in the foot for the past 2-3 days. She was started on antibiotics by her primary care physician yesterday, and has only taken 2 doses of the medication. The patient has not had fever or chills. She states that walking on the foot exacerbates her pain. No drainage or discharge is noted. She rates her discomfort a 5/10. Review of Systems More than 10 systems were reviewed and otherwise negative with the exception of history of present illness. Past Medical/Surgical History Medical Problems: (1) Acute exacerbation of chronic obstructive pulmonary disease (COPD) (2) Fung's esophagus (3) Benign hypertension (4) Cardiac catheterization (5) Chronic obstructive lung disease (6) Hysterectomy (7) Lumbar stenosis with neurogenic claudication (8) Tonsillectomy Family History FH: breast cancer FH: lung cancer Social History Smoking Status: Former Smoker Alcohol Use: none Drug Use: none Marital Status: Housing Status: lives with family Occupation Status: retired Current/Historical Medications Scheduled Aspirin (Aspirin EC Low Dose), 81 MG PO QAM Atenolol (Tenormin), 25 MG PO QAM Cephalexin Monohydrate (Keflex), 500 MG PO TID Hydrochlorothiazide (Hctz), 50 MG PO DAILY Nutritional Supplements (Bladder 2.2), 2 TABS PO DAILY Pantoprazole (Protonix), 40 MG PO BID Potassium Chloride (Potassium Chloride Er), 10 MEQ PO BID Scheduled PRN Albuterol Hfa (Ventolin Hfa), 2 PUFFS INH Q4 PRN for SOB/Wheezing Hydrocodone/Acetaminophen 5MG/325MG ([place] 5MG/325MG), 1 TABLET PO Q6 PRN for Pain Physical Exam Vital Signs Date Time Temp Pulse Resp B/P (MAP) Pulse Ox O2 Delivery O2 Flow Rate FiO2 06/01/17 17:28 74 18 172/67 97 06/01/17 16:55 36.7 73 18 152/72 92 Physical Exam VITALS: Vitals are noted on the nurse's note and reviewed by myself. Vital signs stable. GENERAL: Well-developed, well-nourished, white female, who is in no acute distress and resting comfortably. Patient is cooperative with the examination. HEART: Regular rate and rhythm without murmurs gallops or rubs. LUNGS: Clear to auscultation bilaterally without wheezes, rales or rhonchi. No retractions or accessory muscle use. NEURO: Patient was alert and oriented to person place and time. CN II through XII grossly intact. SKIN: The skin was with several healing areas on the plantar aspect of the right foot consistent with a plantar wart treatment. No obvious drainage or discharge noted. No ulcerations or abscesses. Neurovascular status is intact to the right foot. Full range of motion is noted. Medical Decision & Procedures ED Course Physical exam and history were performed. Nursing notes, EMR, and Medication List were personally reviewed. Patient appears to have pain of her right foot after treatment for plantar warts. On examination the patient is without obvious infection, ulceration, or drainage. She does have several treated spots on her foot that are tender on palpation, but overall she appears well. The patient has multiple antibiotic allergies, and is currently on Keflex. I recommended that she continue this medication and follow with her primary care physician after the weekend. I will give the patient a short course of pain medication. She was otherwise invited back to the ER with any new, worsening, or concerning symptoms. The chart was completed utilizing [employer] Voice Recognition Software. Grammatical errors, random word insertions, pronoun errors, and incomplete sentences are an occasional consequence of this system due to software limitations, ambient noise, and hardware issues. Any formal questions or concerns about the content, text, or information contained within the body of this dictation should be directly addressed to the provider for clarification. . Medical Decision Differential diagnosis includes, but is not limited to: Infection, abrasion, laceration, ulceration, and others Impression Primary Impression: Right foot pain Departure Information Dispostion Home / Self-Care Condition GOOD Prescriptions Hydrocodone/Acetaminophen 5MG/325MG ([place] 5MG/325MG) Tab 1 TABLET PO Q6 Y for Pain, #12 TAB For Initial Treatment Prov: Cody Watkins PA-C 06/01/17 Forms HOME CARE DOCUMENTATION FORM, IMPORTANT VISIT INFORMATION Patient Instructions [facility] Additional Instructions You were seen and evaluated today on an emergency basis only. This is not a substitute for, or an effort to provide, complete comprehensive medical care. It is not possible to recognize and treat all injuries or illnesses in a single emergency department visit. For this reason it is recommended that you followup with your primary care physician next week as scheduled for a recheck. Continue the antibiotics as previously prescribed. [place] (hydrocodone/acetaminophen) 5/325 mg every 6 hours as needed for worsening breakthrough pain. Do not drink or drive on [place]. This medication will likely make you tired. Do not take [place] and Tylenol at the same time as both contain acetaminophen. [place] may cause constipation. You may wish to take an [id number]-[id number] stool softener like Colace if this occurs. You are welcome to return to the emergency department anytime with new, worsening, or concerning symptoms.
== END 2017-06-01 17:28 | disposition home or self-care (01) ==
LOC: C.EDB 16:47 → C.EDD 17:28
DX: M79.671 Pain in right foot (principal); I10 Essential (primary) hypertension; J44.9 Chronic obstructive pulmonary disease, unspecified; Z98.890 Other specified postprocedural states; Z87.891 Personal history of nicotine dependence; Z79.82 Long term (current) use of aspirin; Z88.1 Allergy status to other antibiotic agents; Z80.3 Family history of malignant neoplasm of breast; Z80.1 Family history of malignant neoplasm of trachea, bronchus and lung

== ENCOUNTER → 2017-06-22 | Day surgery (SDC) | payer OTHER ==
[2017-06-21 14:19] VITALS: Ht 157.5 cm; Wt 73.6 kg
[~2017-06-22] VITALS: Ht 157.5 cm; Wt 73.6 kg
[~2017-06-22] MED LIST changes: -ALBINS PO; -ALL60 PO; -ATOR-24 PO; -CLOP1TAB5 PO; +LIDOCAINE HCL 2% 2 ML VIAL (20MG/ML) ONE; +PROPOFOL IV EMULSION 10 MG/ML 20 ML VIAL IV ONE; +SODIUM CHLORIDE 0.9% 500ML 500 ML IV ONE; +SPRIN/30 INH; -SPRIN/30 PO; -TRIA1SPR4 NAE
--- NOTE | 2017-06-22 08:50 | Endo History and Physical ---
History & Physical Date of Service: Jun 22, 2017. Chief Complaint: Fung's Referring Physician: Dr. Lonnie Nicolas History of Present Illness 81 yo CF who presents for EGD secondary to Fung's Esophagus. Past Medical History Arthritis, Reflux, Cancer, Hypertension, COPD Past Surgical History Hx Cardiac Surgery: Yes (CARDIAC CATH ) Hx Internal Defibrillator: No Hx Pacemaker: No Hx Abdominal Surgery: No Hx Post-Op Nausea and Vomiting: Yes Hx Cancer Surgery: No Hx Thoracic Surgery: Yes (L4-L5 DECOMPRESSION) Hx Orthopedic: No Hx Urinary Tract Surgery: Yes (CYSTOSCOPY, BLADDER BX) Family History None Social History Smoking Status: Never Smoker Hx Substance Use: No Hx Alcohol Use: No Allergies Coded Allergies: Nitrofurantoin (Verified Allergy, Severe, SHORTNESS OF BREATH, 06/21/17) Terazosin (Verified Allergy, Severe, SHORTNESS OF BREATH, 06/21/17) Fluconazole (Verified Allergy, Intermediate, rash, hives, 06/21/17) Levofloxacin (Verified Allergy, Intermediate, SOB, pt able to take cipro w /o prob, 06/21/17) Lisinopril (Verified Allergy, Intermediate, COUGH SOB, 06/21/17) Nifedipine (Verified Allergy, Intermediate, HIVES, 06/21/17) Amoxicillin (Verified Allergy, Unknown, HIVES, 06/21/17) Losartan (Verified Allergy, Unknown, SHORTNESS OF BREATH, 06/21/17) Phenazopyridine (Verified Allergy, Unknown, HIVES, 06/21/17) Sulfamethoxazole w/Trimethoprim (Verified Allergy, Unknown, hives, 06/21/17) Current Medications Reported Home Medications Medications Dose Route/Sig Max Daily Dose Days Date Category Dose Instructions Spiriva Handihaler (Tiotropium [place]) 30 Puff/540 Mcg Aerp 1 Cap INH QAM 06/21/17 Reported Hctz (Hydrochlorothiazide) 50 Mg Tab 50 Mg PO QAM 06/01/17 Reported Aspirin EC Low Dose (Aspirin) 81 Mg Ectab 81 Mg PO QAM 10/12/16 Rx take with food Ventolin Hfa (Albuterol) 200 Puffs/05056 Mcg Aers 2 Puffs INH Q4 PRN 10/07/16 Reported Potassium Chloride Er (Potassium Chloride) 10 Meq Tab 10 Meq PO BID 10/07/16 Reported Bladder 2.2 (Nutritional Supplements) 1 Tab Tab 2 Tabs PO QAM 10/07/16 Reported Protonix (Pantoprazole Sodium) 40 Mg Tab 40 Mg PO BID 08/31/12 Reported TAKE 30 MINUTES PRIOR TO MEALS Tenormin (Atenolol) 25 Mg Tab 25 Mg PO QAM 10/12/10 Reported Vital Signs Weight (Kilograms): 73.64 Height (Feet): 5 Height (Inches): 2 Physical Exam General Appearance: WD/WN, no apparent distress Respiratory/Chest: Auscultation: breath sounds normal Cardiovascular: Heart Auscultation: RRR Abdomen: Bowel Sounds: normal Inspection & Palpation: soft, non-distended, no tenderness, guarding & rebound Assessment and Plan Assessment: 81 yo CF who presents for EGD secondary to Fung's Esophagus. Plan: Proceed with EGD.
--- NOTE | 2017-06-22 09:39 | Discharge Instructions ---
Endoscopy Patient Instructions Date / Procedure(s) Performed Jun 22, 2017. EGD Allergy Information Coded Allergies: Nitrofurantoin (Verified Allergy, Severe, SHORTNESS OF BREATH, 06/21/17) Terazosin (Verified Allergy, Severe, SHORTNESS OF BREATH, 06/21/17) Fluconazole (Verified Allergy, Intermediate, rash, hives, 06/21/17) Levofloxacin (Verified Allergy, Intermediate, SOB, pt able to take cipro w /o prob, 06/21/17) Lisinopril (Verified Allergy, Intermediate, COUGH SOB, 06/21/17) Nifedipine (Verified Allergy, Intermediate, HIVES, 06/21/17) Amoxicillin (Verified Allergy, Unknown, HIVES, 06/21/17) Losartan (Verified Allergy, Unknown, SHORTNESS OF BREATH, 06/21/17) Phenazopyridine (Verified Allergy, Unknown, HIVES, 06/21/17) Sulfamethoxazole w/Trimethoprim (Verified Allergy, Unknown, hives, 06/21/17) Discharge Date / Findings Jun 22, 2017. Fung's Esophagus s/p biopsies Medication Instructions Stopped Medication(s): took ASA yesterday OK to resume all medications today as prescribed Reported Home Medications Medications Dose Route/Sig Max Daily Dose Days Date Category Dose Instructions Spiriva Handihaler (Tiotropium [place]) 30 Puff/540 Mcg Aerp 1 Cap INH QAM 06/21/17 Reported Hctz (Hydrochlorothiazide) 50 Mg Tab 50 Mg PO QAM 06/01/17 Reported Aspirin EC Low Dose (Aspirin) 81 Mg Ectab 81 Mg PO QAM 10/12/16 Rx take with food Ventolin Hfa (Albuterol) 200 Puffs/30337 Mcg Aers 2 Puffs INH Q4 PRN 10/07/16 Reported Potassium Chloride Er (Potassium Chloride) 10 Meq Tab 10 Meq PO BID 10/07/16 Reported Bladder 2.2 (Nutritional Supplements) 1 Tab Tab 2 Tabs PO QAM 10/07/16 Reported Protonix (Pantoprazole Sodium) 40 Mg Tab 40 Mg PO BID 08/31/12 Reported TAKE 30 MINUTES PRIOR TO MEALS Tenormin (Atenolol) 25 Mg Tab 25 Mg PO QAM 10/12/10 Reported Provider Instructions Activity Restrictions - No exercising or heavy lifting for 24 hours. - Do not drink alcohol the day of the procedure. - Do not drive a car or operate machinery until the day after the procedure. - Do not make any important decisions or sign important papers in 24 hours after the procedure. Following Day: - Return to full activity which may include returning to work/school. Diet Start your diet with liquids and light foods (jello, soup, juice, toast). Then eat your usual diet if not nauseated. Treatment For Common After Affects For mild abdominal pain, bloating, or excessive gas: - Rest - Eat lightly - Lie on right side Follow-Up Information Follow-up with Dr. Lonnie Nicolas as scheduled Anesthesia Information What You Should Know You have had a procedure that required some medicine to reduce anxiety and discomfort. This treatment is called moderate sedation. After receiving the treatment, you may be sleepy, but you will be able to breathe on your own. The effects of the treatment may last for several hours. Follow these instructions along with Activity/Diet recommendations noted above: * Do NOT do anything where dizziness or clumsiness would be dangerous. * Rest quietly at home today, then you can be up and about tomorrow. * Have a responsible person stay with you the rest of today. * You may have had an I.V. today. If so, you may take the dressing off later today. Recommendations Call your doctor if: * Trouble breathing * Continuous vomiting for more than 24 hours * Temperature above 101 degrees * Severe abdominal pain or bloating * Pain not relieved by pain medicine ordered * There is increased drainage or redness from any incision * A large amount of rectal bleeding greater than 2-3 tablespoons. (If you had a polyp/s removed or have hemorrhoids, a small amount of blood - from the rectum is to be expected.) * You have any unanswered questions or concerns. IN THE EVENT OF A SERIOUS EMERGENCY, GO TO THE NEAREST EMERGENCY ROOM Your discharge instructions were prepared by provider Clayton Dick. Patient Instructions Signature Page Chica Rankin Patient (or Guardian) Signature/Date: I have read and understand the instructions given to me by my caregivers. Caregiver/RN/Doctor Signature/Date: The above-named patient and/or guardian has received patient instructions on this date. + Original Patient Signature Page (only) stays with chart. Please make copy for patient.
--- NOTE | 2017-06-22 09:58 | Anesthesiology Progress Note ---
Anesthesia Post Op Note Date & Time Jun 22, 2017 at 09:58 Vital Signs Pain Intensity: 0 Vital Signs Past 12 Hours Date Time Temp Pulse Resp B/P (MAP) Pulse Ox O2 Delivery O2 Flow Rate FiO2 06/22/17 09:53 61 16 164/113 (130) 20 Room Air 06/22/17 09:38 36.0 62 16 123/57 (79) 16 Room Air 06/22/17 08:49 36.8 63 16 192/80 (117) 16 Room Air Notes Mental Status: alert / awake / arousable, participated in evaluation Pt Amnestic to Procedure: Yes Nausea / Vomiting: adequately controlled Pain: adequately controlled Airway Patency, RR, SpO2: stable & adequate BP & HR: stable & adequate Hydration State: stable & adequate Anesthetic Complications: no major complications apparent
[2017-06-22 10:07] VITALS: BP 164/88; PULSE 59; O2SAT 100
--- NOTE | 2017-06-22 10:10 | GI REPORT ---
Procedure Date: 06/22/2017 9:18 AM Procedure: Upper GI endoscopy Indications: Follow-up of Fung's esophagus Medicines: Monitored Anesthesia Care Complications: No immediate complications. Estimated Blood Loss: Estimated blood loss: none. Procedure: Pre-Anesthesia Assessment: - Prior to the procedure, a History and Physical was performed, and patient medications and allergies were reviewed. The patient's tolerance of previous anesthesia was also reviewed. The risks and benefits of the procedure and the sedation options and risks were discussed with the patient. All questions were answered, and informed consent was obtained. Prior Anticoagulants: The patient has taken aspirin, last dose was 1 day prior to procedure. ASA Grade Assessment: II - A patient with mild systemic disease. After reviewing the risks and benefits, the patient was deemed in satisfactory condition to undergo the procedure. After obtaining informed consent, the endoscope was passed under direct vision. Throughout the procedure, the patient's blood pressure, pulse, and oxygen saturations were monitored continuously. The scope was introduced through the mouth, and advanced to the second part of duodenum. The upper GI endoscopy was accomplished without difficulty. The patient tolerated the procedure well. Findings: There were esophageal mucosal changes consistent with short-segment Fung's esophagus present at the gastroesophageal junction. The maximum longitudinal extent of these mucosal changes was 2 cm in length. Mucosa was biopsied with a cold forceps for histology. One specimen bottle was sent to pathology. The stomach was normal. The examined duodenum was normal. Impression: - Esophageal mucosal changes consistent with short-segment Fung's esophagus. Biopsied. - Normal stomach. - Normal examined duodenum. Recommendation: - Resume previous diet. - Continue present medications. - Await pathology results. - Return to primary care physician as previously scheduled. Clayton Dick, DO 06/22/2017 10:10:20 AM This report has been signed electronically. Note Initiated On: 06/22/2017 9:18 AM I attest to the content of the Intraoperative Record and orders documented therein, exceptions below
== END | disposition home or self-care (01) ==
LOC: C.GI 08:28
PROVIDERS: ATTEND Internal Medicine
DX: R13.10 Dysphagia, unspecified (principal); K22.70 Barrett's esophagus without dysplasia; K21.0 Gastro-esophageal reflux disease with esophagitis; I10 Essential (primary) hypertension; J44.9 Chronic obstructive pulmonary disease, unspecified; M19.90 Unspecified osteoarthritis, unspecified site; Z88.2 Allergy status to sulfonamides; Z88.1 Allergy status to other antibiotic agents; Z79.82 Long term (current) use of aspirin

== ENCOUNTER → 2017-12-05 | Outpatient (CLI) | payer OTHER ==
[~2017-12-05] MED LIST changes: -ASPEC81 PO; +ASPI-320 PO; -LIDOCAINE HCL 2% 2 ML VIAL (20MG/ML) ONE; -PROPOFOL IV EMULSION 10 MG/ML 20 ML VIAL IV ONE; -SODIUM CHLORIDE 0.9% 500ML 500 ML IV ONE
--- NOTE | 2017-12-05 09:44 | DIAGNOSTIC IMAGING REPORT ---
(CHEST) THORAX WITHOUT CLINICAL HISTORY: 82 years-old Female presenting with R91.1 Solitary pulmonary nodule. TECHNIQUE: Multidetector CT imaging of the chest was performed without the use of intravenous contrast. IV contrast: None. A dose lowering technique was used consistent with the principles of ALARA (as low as reasonably achievable). COMPARISON: 12/22/2016. CT DOSE (mGy.cm): The estimated cumulative dose is 229.10 mGycm. FINDINGS: Instrument And Electrical Technician topogram: Unremarkable. On soft tissue windows, normal thyroid and thoracic inlet. No axillary, supraclavicular, or mediastinal lymphadenopathy. Evaluation of the luke limited without intravenous contrast. Atherosclerosis of the aorta. Top normal cardiac size. Coronary artery, aortic valve, and mitral annular calcification. No pericardial or pleural effusion. Multiple hypodensities in the liver, which are well-defined and likely hepatic cysts. Interval development of left pelvocaliectasis. On lung windows, small fat-containing diaphragmatic eventration at the left lung base, which previously had the appearance of a lower lobe nodule (series 4 image 239). No pulmonary nodule in the left lower lobe. Moderate to severe upper lobe predominant centrilobular emphysema. Stable cicatrizing atelectasis of the medial segment of the right middle lobe. Mild bronchial wall thickening diffusely. Interval increase in size and coalescence of 2 small solid pulmonary nodules and azygoesophageal recess of the right lower lobe. Now measured as a single nodule, this is 8 mm in diameter with minimal central cavitation or interposed aerated lung (series 4 image 148). No pneumothorax. On bone windows, degenerative changes of the spine. IMPRESSION: 1. Interval increase in size of two small adjacent solid pulmonary nodules, which have now coalesced into a single 8 mm solid pulmonary nodule in the azygoesophageal recess of the right lower lobe. This is suspicious especially given the patient's high risk for lung cancer. Follow-up per [employer] Society 2017 recommendations below with a six-month follow-up CT. 2. Emphysema. 3. Interval development of left pelvocaliectasis. Left hydronephrosis cannot be excluded. Further evaluation with ultrasound and/or CT recommended. The report will be called/faxed according to standard departmental protocol. Please refer to below summary of Fleischner Society 2017 recommendations for follow-up of incidental CT nodules (H MacMahon, et al. Guidelines for management of incidental pulmonary nodules detected on CT images: From the Fleischner Society 2017. Radiology 2017; 284: 228-243.) SOLID NODULES Single nodule; size < 6 mm * Low risk patients: No routine follow-up * High risk patients: Optional CT at 12 months Single nodule; size 6-8 mm * Low risk patients: CT at 6-12 months, then consider CT at 18-24 months * High risk patients: CT at 6-12 months, then at 18-24 months Single nodule; size > 8 mm * Either low or high risk patients: Considered CT at 3 months, PET/CT, or tissue sampling Multiple nodules; size < 6 mm * Low risk patients: No routine follow up * High risk patients: Optional CT at 12 months Multiple nodules; size 6-8 mm * Low risk patients: CT at 3-6 months, then consider CT at 18-24 months * High risk patients: CT at 3-6 months, then at 18-24 months Multiple nodules; size > 8 mm * Low risk patients: CT at 3-6 months, then consider at 18-24 months * High risk patients: CT at 3-6 months, then at 18-24 months SUBSOLID NODULES Single ground-glass nodule * Nodule size < 6 mm: No routine follow-up * Nodule size > or = 6 mm: CT at 6-12 months to confirm persistence, then CT every 2 years until 5 years Single part-solid nodule * Nodule size < 6 mm: No routine follow-up * Nodules size > or = 6 mm: CT at 3-6 months to confirm persistence. If unchanged and solid component remains < 6 mm, annual CT should be performed for 5 years Multiple nodules * Nodule size < 6 mm: CT at 3-6 months. If stable, consider CT at 2 and 4 years. * Nodules size > or = 6 mm: CT at 3-6 months. Subsequent management based on the most suspicious nodule(s) NOTE: 1) These guidelines apply to incidental nodules. These guidelines do NOT apply to patients younger than 35 years, immunocompromised patients, or patients with cancer. 2) Risk categories: * Low risk patients: Minimal or absent history of smoking and/or other known risk factors * High risk patients: History of smoking, exposure to other carcinogens, emphysema, fibrosis, upper lobe location, family history of lung cancer, etc. 3) If a nodule up to 8 mm is partly solid or is ground glass, further follow-up is required after 24 months to exclude possible slow growing adenocarcinoma. Electronically signed by: Johny Yepez M.D. 12/05/2017 9:43 AM Dictated Date/Time: 12/05/2017 9:14 AM
== END | disposition home or self-care (01) ==
LOC: C.CTS 08:56
PROVIDERS: ATTEND Internal Medicine
DX: R91.1 Solitary pulmonary nodule (principal); J43.9 Emphysema, unspecified

== ENCOUNTER → 2017-12-11 | Outpatient (CLI) | payer OTHER ==
--- NOTE | 2017-12-11 14:04 | DIAGNOSTIC IMAGING REPORT ---
(ERLINDA/BLAD)RETROPERITON COMP HISTORY: 82 years-old Female LEFT SIDED HYDRONEPHROSIS acute left-sided hydronephrosis COMPARISON: CT chest 12/05/2017 TECHNIQUE: Multiple real-time sonographic images of the kidneys and bladder were obtained assessing grayscale appearance and color flow FINDINGS: The right kidney measures 9.4 cm in length and is unremarkable without renal calculi, hydronephrosis or suspicious mass lesion. Left kidney measures 10.7 cm in length and demonstrates mild hydronephrosis. No suspicious mass lesions or renal calculi. 1.2 x 0.7 cm lesion of the lower pole left kidney is partially exophytic and hypoechoic, possibly reflecting a complex cyst however is indeterminate. No internal flow within this lesion is documented. Bladder is unremarkable with bilateral ureteral jets noted. The left ureteral jet appears slightly diminished compared to the right. IMPRESSION: 1. Confirmation of mild left-sided hydronephrosis. 2. Unremarkable sonographic appearance of the right kidney and urinary bladder. 3. 1.2 cm hypoechoic exophytic lesion of the inferior pole left kidney, possibly reflects a complex cyst however is indeterminate. The above report was generated using voice recognition software. It may contain grammatical, syntax or spelling errors. Electronically signed by: Tulio Garcia M.D. 12/11/2017 2:03 PM Dictated Date/Time: 12/11/2017 1:59 PM
== END | disposition home or self-care (01) ==
LOC: C.ULTR 13:17
PROVIDERS: ATTEND Internal Medicine
DX: N13.30 Unspecified hydronephrosis (principal); N28.9 Disorder of kidney and ureter, unspecified

== ENCOUNTER 2018-11-08 08:35 | Observation (INO) ==
--- NOTE | 2018-11-06 09:28 | Anesthesiology Consultation ---
Date of Service November 06, 2018 Assessment & Plan Chart Review Chart Review: Acceptable Risk for Surgery and Patient NOT seen in Pre Admission Testing Consults Requested none History Surgery Operation Date: 11/08/18 12:15 Proposed Procedures p Endobronchial Ultrasound and - Jean Brambila MD, FACS s Navigational Bronchoscopy with Biopsies - Jean Brambila MD, FACS Allergies Allergy/AdvReac Type Severity Reaction Status Date / Time nitrofurantoin Allergy Severe DYSPNEA Verified 10/21/18 07:35 terazosin Allergy Severe DYSPNEA Verified 10/21/18 07:35 fluconazole Allergy Intermediate RASH, HIVES Verified 10/21/18 07:35 levofloxacin Allergy Intermediate DYSPNEA Verified 10/21/18 07:35 lisinopril Allergy Intermediate COUGH, Verified 10/21/18 07:35 DYSPNEA nifedipine Allergy Intermediate HIVES Verified 10/21/18 07:35 amoxicillin Allergy Unknown HIVES Verified 10/21/18 07:35 Bactrim Allergy Unknown hives Verified 06/22/17 14:16 losartan Allergy Unknown DYSPNEA Verified 10/21/18 07:35 phenazopyridine Allergy Unknown HIVES Verified 10/21/18 07:35 sulfamethoxazole Allergy Unknown HIVES Verified 10/21/18 07:35 trimethoprim Allergy Unknown HIVES Verified 10/21/18 07:35 Medications Home Medications Medication Instructions Recorded Confirmed Last Taken Spiriva with HandiHaler 1 cap INHALATION QAM 10/07/18 10/21/18 10/21/18 06:00 albuterol sulfate 2 puff INHALATION QID PRN 10/07/18 10/07/18 Unknown atenolol 25 mg PO QAM 10/07/18 10/21/18 10/21/18 06:00 pantoprazole 40 mg PO BID 10/07/18 10/21/18 10/21/18 06:00 potassium chloride 10 meq PO BIDM 10/07/18 10/21/18 10/20/18 17:00 ciprofloxacin HCl [Cipro] 250 mg PO Q12H #6 tab 10/21/18 Unknown tramadol 50 mg PO TID PRN #14 tab 10/22/18 Unknown Past Medical History Medical History History of difficult intubation left hand assisted nephrectomy: 02/21/18: Grade 1 view, Glidescope #3, ETT 7.5 at [facility] Bladder tumor CKD (chronic kidney disease) BASELINE CREATININE 1.5-1.7 PER CHART REVIEW Chronic obstructive pulmonary disease STABLE GERD (gastroesophageal reflux disease) CONTROLLED Hx of renal cell cancer RENAL, BLADDER; S/P LEFT NEPHRECTOMY Hypertension Pulmonary HTN "MODERATE" RVSP 56MMHG PER 02/2018 ECHO Past Family History Family History Other Cancer Hypertension Lung disease Past Surgical History Surgical History H/O cataract extraction H/O transurethral destruction of bladder lesion History of nephrectomy, left 02/21/18 - Glidescope #3, ETT #7.5, Hi[facility] Oral, Grade 1 View History of tonsillectomy History of ureter stent L/SINCE REMOVED Hx of cystoscopy Hx of hysterectomy BSO S/P insertion of iliac artery stent B/L Social History Smoking Status: Former smoker Smoking cigarettes per day: 1ppd x 50 years Hx Alcohol Use: No Hx Substance Use: No substance use type: does not use Testing Laboratory Results Laboratory Tests 11/05/18 11/05/18 12:32 12:32 WBC 8.90 Hgb 12.8 Hct 39.3 Plt Count 345 Sodium 141 Potassium 4.4 Chloride 107 Carbon Dioxide 30 BUN 24 H Creatinine 1.41 H Glucose 85 Electrocardiogram Date: 02/23/18 SR with PACs at 88bpm. NS ST/TWA. Chest X-Ray Date: 09/18/18 Findings: + NAD Moderate emphysematous change Echocardiogram Date: 02/23/18 EF: 60-65% RWMA: + none Mild RAD. Moderate pulmonary HTN (RVSP 56mmhg). Mild TR. Other Testing CHEST CT WITH CONTRAST 10/09/18 FINDINGS: Normal thyroid. Mild right hilar adenopathy measures 1.4 x 1.2 cm, unchanged. No new or enlarging lymph nodes of the chest identified. Mild multichamber cardiomegaly with coronary arterial calcifications. No pericardial effusion. Extensive mixed plaque formation of the thoracic aorta and proximal great vessels. No aneurysm or dissection identified. The opacified pulmonary arterial tree is unremarkable without evidence of pulmonary thromboembolic disease. There is no pneumothorax or pleural effusion. Advanced emphysema. Irregular solid nodule of the right upper lobe measures 9 x 7 mm with a portion of the nodule abutting the adjacent bronchus intermedius, image 141 series 4. This nodule previously measured 9 x 7 mm on study from 06/07/2018 at measured 5 mm and 2016. New 4 mm solid nodule right lower lobe, image 179 series 4. Groundglass and tree-in-bud nodules of the right lower lobe are also present with associated bronchial wall thickening and mild mucous plugging. Subsegmental consolidation of the medial segment right middle lobe and inferior segment lingula is unchanged. Central airways appear to be patent. No acute process of the imaged upper abdomen. Absent left kidney. Scattered hypodense lesions throughout the liver redemonstrated. Soft tissues are unremarkable. Demineralized appearance the bones. Degenerative changes of the shoulders and spine. IMPRESSION: 1. 9 x 7 mm solid nodule about the medial aspect of the superior segment right lower lobe appears unchanged in size from 06/07/2018, however has progressively increased in size dating back to 2016. A slow-growing primary bronchogenic carcinoma is the diagnosis of exclusion. 2. New tree-in-bud micronodules with groundglass opacities and 4 mm solid nodule of the basal right lower lobe is suggestive of infectious or inflammatory pneumonitis/bronchiolitis. Attention at follow-up recommended. 3. Mild right hilar adenopathy is unchanged. 4. Emphysema. 5. Additional findings as above.
[~2018-11-08 08:35] MED LIST changes: -ASPI-320 PO; -ATEN-173 PO; -HYDR50TA3 PO; +LR 15ML/HR IV SCH; -NUTR1TAB3 PO; -PANT40TA PO; -POTA-74 PO; -SPRIN/30 INH; -VNTHFA/IN INH
[2018-11-08] MEDS ORDERED: PROPOFOL IV EMULSION 10 MG/ML 20 ML VIAL IV ONE (11:32)
[2018-11-08] MEDS ORDERED: LIDOCAINE HCL 2% 2 ML VIAL/AMP(20MG/ML) INFIL ONE (11:32)
[2018-11-08] MEDS ORDERED: DEXAMETHASONE SOD INJ 4 MG/ML VIAL ONE (11:32)
[2018-11-08] MEDS ORDERED: fentaNYL citrate 100 MCG/2 ML VIAL ONE (11:32)
[2018-11-08] MEDS ORDERED: ONDANSETRON INJ 2 MG/ML 2 ML VIAL ONE (11:32)
[2018-11-08] MEDS ORDERED: ATROPINE SULFATE 0.1 MG/ML 10ML SYR IV PRN (12:16)
[2018-11-08] MEDS ORDERED: ONDANSETRON INJ 2 MG/ML 2 ML VIAL IV PRN ×2 (12:16→18:21)
[2018-11-08] MEDS ORDERED: fentaNYL citrate 100 MCG/2 ML VIAL IV PRN (12:16)
[2018-11-08] MEDS ORDERED: LABETALOL HCL IV 5 MG/ML 20ML IV PRN (12:16)
--- NOTE | 2018-11-08 12:16 | History & Physical Bridge Note ---
Date of Service November 08, 2018 History & Physical Bridge Note I have examined the patient, reviewed the History & Physical and in the interval since the performance of the History & Physical I have noted the following changes of clinical significance: no changes noted
[2018-11-08] MEDS ORDERED: ePHEDrine sulfate 50 MG/ML SYR ONE (13:04)
[2018-11-08] MEDS ORDERED: CLINDAMYCIN PHOS 300 MG/2 ML VIAL ONE (13:25)
--- NOTE | 2018-11-08 13:53 | Post Operative Brief Note ---
Immediate Post Op Note v1 Date of Surgery November 08, 2018 Pre & Post Diagnosis Operation Date: 11/08/18 10:05 Pre-Op Diagnosis: Right Lung Nodule Post-Op Diagnosis: Right Lung Nodule Procedure Operation Date: 11/08/18 10:05 Actual Procedures p Endobronchial Ultrasound, - Jean Brambila MD, FACS s Navigational Bronchoscopy - Jean Brambila MD, FACS Surgeon Jean Brambila MD, FACS Gps Field Data Collector Manolo Rosa WALL ATTENDANT Estimated Blood Loss 10 Findings Consistent with Post-Op Diagnosis
--- NOTE | 2018-11-08 14:35 | XRay Report ---
XR chest 1V portable CLINICAL HISTORY: 83 years-old Female presenting with s/p EBUS. TECHNIQUE: Portable upright AP view of the chest was obtained. COMPARISON: 09/18/2018 and 10/09/2018. FINDINGS: Atherosclerosis of the aortic arch. Cardiac silhouette mildly enlarged. Lungs are hyperinflated. Vagu e minimal right basilar opacity. Focal opacity at the left lung base. No pleural effusion or pneumoth orax. Osseous structures normal. Upper abdomen normal. IMPRESSION: 1. No pneumothorax post procedure. 2. Vague right basilar opacity likely the targeted site of biopsy. 3. Left basilar opacity likely corresponds to lingular atelectasis on recent CT. 4. Underlying emphysema. Electronically signed by: Johny Yepez M.D. 11/08/2018 2:34 PM
--- NOTE | 2018-11-08 14:37 | Anesthesiology Progress Note ---
Date of Service November 08, 2018 Anesthesia Post Procedure Vital Signs Vital Signs: Temp Pulse Pulse Resp BP BP Pulse Ox 11/08/18 14:35 36.4 C L 65 22 162/93 H 93 11/08/18 14:25 67 23 161/78 H 98 11/08/18 14:15 69 22 148/59 H 100 11/08/18 14:06 36.8 C 74 20 149/90 H 100 11/08/18 09:18 36.7 C 59 L 20 165/92 H 98 Transfer of Care Handoff Completed per policy Notes Mental Status: alert / awake / arousable Patient Amnestic to Procedure: Yes Nausea / Vomiting: adequately controlled Pain: adequately controlled Airway Patency, RR, SpO2: stable & adequate BP & HR: stable & adequate Hydration State: stable & adequate Anesthetic Complications: no major complications apparent
[2018-11-08] MEDS ORDERED: ALBUTEROL HFA 8 GM INHALER INH PRN (18:21)
[2018-11-08] MEDS ORDERED: ACETAMINOPHEN 325 MG TAB PO PRN (18:21)
[2018-11-08 19:17] LABS: Hematocrit (blood only) 37.4 % (37-47); Hemoglobin 12.1 g/dL (12.0-16.0); Mean Corpuscular Hgb Conc 32.4 g/dL (32-36); Mean Corpuscular Volume 91.9 fL (80-100); Platelet Count 285 K/uL (130-400); RDW Coefficient of Variation 15.7 % (11.5-14.5); Red Blood Count 4.07 M/uL (4.2-5.4); White Blood Count 9.43 K/uL (4.8-10.8)
[2018-11-08 19:26] LABS: Prothrombin Time 10.7 Seconds (9.0-12.0)
[2018-11-08 19:33] LABS: Creatinine Clr Calc Pharmacy 21.7 ml/min; Est GFR (African American) 31.3
--- NOTE | 2018-11-08 19:39 | History and Physical Report ---
DATE OF ADMISSION: 11/08/2018 This patient is an 83-year-old female who had an endobronchial ultrasound and a navigational bronchoscopy done earlier today. She did fine during the case; however, she was hypoxic after which and we could not get her off of oxygen. She was requiring 3 liters of oxygen to get to 94%. Her x-ray looked fine. She has decreased breath sounds throughout, but no wheezing or rales. As this was the case, we elected to keep her overnight with oxygen. We will ambulate her and get her work on the incentive spirometer and her pulmonary toilet. I will hopefully be able to discharge her first thing in the morning.
[2018-11-08] MEDS: ALBUT/IPRATROP 3MG/0.5MG NEB 3 ML VIAL NEB SCH (19:44)
--- NOTE | 2018-11-08 20:45 | Operative Report ---
DATE OF OPERATION: 11/08/2018 PREOPERATIVE DIAGNOSES: Enlarging right lower lobe nodule with hilar adenopathy. POSTOPERATIVE DIAGNOSES: Enlarging right lower lobe nodule with hilar adenopathy. PROCEDURES: 1. Endobronchial ultrasound with biopsy. 2. Electromagnetic navigational bronchoscopy with washings. SURGEON: Jean Brambila MD LABEL CUTTER: Dimas Rosa, registered respiratory therapist. ANESTHESIA: General anesthesia, endotracheal intubation. INDICATION FOR PROCEDURE AND FINDINGS: This patient is an 83-year-old female who had abnormality noted in the superior segment of her right lower lobe which has continued to enlarge and even though it is slow growing and was present in 2017, it is bigger. She also had some mild hilar adenopathy. I was asked to evaluate her for a possible tissue diagnosis. I did explain to the patient and her in the office that it would be unlikely that we would get our navigational catheter up to this area, but we would try. I told them at the very least, we would do washings. On 11/08/2018, the patient was brought to the operating room and underwent an uncomplicated endobronchial ultrasound and biopsy of bilateral level 11, bilateral level 10, right level 4 and level 7 lymph nodes. We got lymph node tissue back on all of these. We did not appear to see a malignancy. I also did washings of this. As I predicted, I was unable to get to this mass with a navigational bronchoscopy. She tolerated it well. DESCRIPTION OF PROCEDURE: The patient was brought to the operating room, laid in supine position. General anesthesia induced. Endotracheal intubation was performed. After appropriate timeout had been called and prophylactic antibiotics given, an endobronchial ultrasound scope was placed through an adapter into the endotracheal tube. I immediately evaluated down to the tertiary airways in each lobe and did not see any abnormalities. We started off on the left side and biopsied the level 11, level 10 nodes as well as level 7 from both the right and the left side then the right level 10, right level 11 and the level 4. The rapid onsite evaluation showed we had lymph node tissue in each. We had no significant bleeding. I was using 25-gauge needles. I then switched to a navigational probe and after registering the airways with the [employer] system, I went down into the bronchus to the superior segment of the right lower lobe; however, I could not make the turn to come back up, which would have been very difficult. I did get into the orifice of the superior segmental airway; however, we did do washings. We really saw no bleeding. I closely inspected the all the airways. Upon leaving, there was no bleeding and no fluid. The patient tolerated this well and was extubated in the room. I was quite pleased with how well she tolerated it. I will see her back in the office next week. I attest to the content of the Intraoperative Record and any orders documented therein. Any exception s are noted below.
--- NOTE | 2018-11-08 20:57 | Consultation ---
Date of Consultation November 08, 2018 Assessment & Plan (1) Hypoxia: Hospitalist consultation 83-year-old female was admitted on 08 November 2018 by the thoracic surgery service after undergoing an endobronchial ultrasound and navigational bronchoscopy earlier in the day. Hypoxia, history of COPD: SpO2 as low as 80% on room air. Presently 95% on 2.5 L NC oxygen. Otherwise vitals rather stable. pCXR notes no pneumothorax post- procedure but some atelectasis and underlying emphysema. Present exam notable for minimal breath sounds in the left upper field. Brief re-check of room SpO2 during exam was high 80s without associated dyspnea. - Rechecked CXR (given present lung exam) which (again) did not note an overt pneumothorax (formal rads read pending). - Continue home Spiriva and albuterol. Encourage IS and pulmonary toilet. - Consider pulmonary consult in AM if still hypoxic. Right lung nodule: As seen on [id number] CT chest. Management per primary team. Elevated creatinine: Admit Cr 1.72. Recent comparisons around 1.51.6. History of left nephrectomy for cancer. - Recheck in a.m. Ongoing medical history: - GERD, Fung's esophagus: Continue home pantoprazole. - Hypertension, hyperlipidemia: Continue home atenolol, potassium, and magnesium. - CHF: Last echo was February 2018 noted EF 60-65%, no LVH or significant diastolic dysfunction, and positive for moderate pulmonary hypertension. - Peripheral vascular disease: History of stenting of the bilateral iliac stenting in 2017. 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 Code status: Full code. Diet: Regular. DVT prophy: Lovenox. PT/OT: Deferred. Disbo: Presently admitted to the thoracic surgery service, on MedSurg for observation. (2) COPD (chronic obstructive pulmonary disease): (3) Pulmonary nodule: (4) Elevated serum creatinine: (5) GERD (gastroesophageal reflux disease): (6) HTN (hypertension): (7) Hyperlipidemia: (8) Congestive heart failure (CHF): (9) PAD (peripheral artery disease): (10) Renal cancer: (11) Recurrent transitional cell carcinoma of bladder: (12) Fung's esophagus: Supervising Physician Co-Signing Physician Notes was admitted earlier in the day following a scheduled thoracic surgery procedure for an endobronchial ultrasound and navigational bronchoscopy regarding a pulmonary nodule seen on CT scan. Patient was noted to have hypoxia post- procedure with lowest SpO2 at 80% on room air. 83 y/o F Hx HTN, HLD, GERD, COPD, bladder CA, PVD, lumbar stenosis. The pt was admitted for an endoscopic biopsy of a pulm nodule. Post procedure she has been hypoxic into the 80s without supplemental 02. The reaon is not clear and she does not c/o SOB. OE: AAO x 3 S1,2 R, mild systolic murmur There is poor air entry/movement in the upper lobes NT, ND No CCE P: We would treat with inhalers and an 02 protocol and consider a pulm consult. As she is asymptomatic when hypoxic, this may represent worsening of her COPD. She may then need 02 on DC. We have not affected any additional changes to her medications. History of Present Illness Requesting Physician: Alex Wilson PA-C Reason for Consultation: Hypoxia Attending Physician: Jean Brambila MD, FACS History of Present Illness 83-year-old female was admitted earlier in the day following a scheduled thoracic surgery procedure for an endobronchial ultrasound and navigational bronchoscopy regarding a pulmonary nodule seen on CT scan. Patient was noted to have hypoxia post-procedure with lowest SpO2 at 80% on room air. The hospital service was consulted for hypoxia. Met with patient in her hospital room. Found her resting very comfortably and watching TV. Patient says that overall the procedure seem to go quite well without acute complications. However she says her surgeon was unable to reach the desired pulmonary nodule. She says normally she has no difficulty breathing with her routine Spiriva for COPD and no recent steroid use. She has albuterol at home but has not had to use it for weeks. Says she has no difficulty with normal daily activities to include walking up two flights of stairs. At present, she denies any chest pain, shortness of breath, or any other acute concerns. On review of systems, she says that both of her feet get cold at night and sometimes she gets charley horses in her legs. Otherwise she looks forward to going home as soon as possible. - Past medical history includes hypertension, hyperlipidemia, GERD, urothelial bladder cancer, left ureter and renal pelvis transitional cell carcinoma, CHF, peripheral vascular disease, lumbar stenosis with neurogenic claudication - Past surgical history includes bilateral iliac stents (3 on the right and 2 on the left) in 2076, cataract surgery, KARINE/BSO, vaginectomy, tonsillectomy with adenoidectomy, left laparoscopic nephroureterectomy. Cataracts - Social history includes former smoker 1 pack/day x 50 years and quit 2009. Denies alcohol use. Retired. Allergies Allergy/AdvReac Type Severity Reaction Status Date / Time nitrofurantoin Allergy Severe DYSPNEA Verified 11/08/18 09:18 terazosin Allergy Severe DYSPNEA Verified 11/08/18 09:18 fluconazole Allergy Intermediate RASH, HIVES Verified 11/08/18 09:18 levofloxacin Allergy Intermediate DYSPNEA Verified 11/08/18 09:18 lisinopril Allergy Intermediate COUGH, Verified 11/08/18 09:18 DYSPNEA nifedipine Allergy Intermediate HIVES Verified 11/08/18 09:18 amoxicillin Allergy Unknown HIVES Verified 11/08/18 09:18 Bactrim Allergy Unknown hives Verified 06/22/17 14:16 losartan Allergy Unknown DYSPNEA Verified 11/08/18 09:18 phenazopyridine Allergy Unknown HIVES Verified 11/08/18 09:18 sulfamethoxazole Allergy Unknown HIVES Verified 11/08/18 09:18 trimethoprim Allergy Unknown HIVES Verified 11/08/18 09:18 Home Medications Home Medications Medication Instructions Recorded Confirmed Type Spiriva with HandiHaler 1 cap INHALATION QAM 10/07/18 11/08/18 History albuterol sulfate 2 puff INHALATION QID PRN 10/07/18 11/08/18 History atenolol 25 mg PO QAM 10/07/18 11/08/18 History pantoprazole 40 mg PO BID 10/07/18 11/08/18 History potassium chloride 10 meq PO BIDM 10/07/18 11/08/18 History cholecalciferol (vitamin D3) 1,000 unit PO DAILY 11/07/18 11/08/18 History [Vitamin D3] magnesium 250 mg PO QAM 11/07/18 11/08/18 History Patient History Family History Other Cancer Hypertension Lung disease Social History Preferred Language: Turkmen Communication Ability: Effective Visual Impairment: No Limitations Combiner Operator Required: No Beliefs That Will Affect Care: None marital status: Current Living Situation: Spouse current occupational status: retired Other Information That Helps Us Care for You: No Feels Safe at Home: Yes Safety Concerns: Feels Safe At This Time Smoking Status: Former smoker Tobacco Type: cigarettes Cigarettes Per Day: 1ppd x 50 years Do You Dip or Chew Tobacco: No Smoking End Date: 2009 Second Hand Exposure: No Tobacco Cessation Education Requested by Patient: No Hx Alcohol Use: No Hx Substance Use: No Review of Systems Review of Systems: Constitutional: Denies fevers, chills, focal weakness Eyes: Denies any visual loss or diplopia ENT: Denies any ear/nose/throat pain or difficulty speaking or swallowing Respiratory: Denies any dyspnea, cough, hemoptysis Cardiovascular: Denies any chest pain or feeling of edema Gastrointestinal: Denies any abdominal pain, nausea/vomiting/diarrhea Musculoskeletal: Denies any acute extremity pains, myalgias, or focal weakness Skin: Denies any known acute rashes or lesions Neuro: Denies any headache, acute focal weakness or numbness, or difficulties with speech or swallow. Physical Exam Physical Exam: GENERAL: Awake, alert, well-appearing, pleasantly conversational in full sentences, in no acute distress HENT: Normocephalic, atraumatic. Oropharynx unremarkable. EYES: Normal conjunctiva. Sclera non-icteric. NECK: Inspection normal. Non-tender. Supple and full ROM. No nuchal rigidity. CARDIAC: +S1S2 RRR, no murmurs. RESPIRATORY: Clear to auscultation with the exception of minimal to no breath sounds in the left upper field. No wheezes or rales. Normal respiratory effort. On 2 L nasal cannula oxygen. GI: +BS, soft, non-distended. No tenderness to palpation. No rebound or guarding. EXTREMITIES: No pedal edema or calf tenderness. Moving all extremities naturally and easily. NEURO: No gross neuro deficits. Results & Data Vital Signs (Past 12 Hours) Vital Signs Temp Pulse Pulse Resp BP BP Pulse Ox 11/08/18 20:20 36.4 C L 83 16 144/60 H 94 11/08/18 19:47 75 20 95 11/08/18 19:20 36.3 C L 71 18 143/54 H 92 11/08/18 18:12 65 20 146/86 H 93 11/08/18 17:15 85 20 145/79 H 94 11/08/18 17:04 92 11/08/18 16:45 65 20 138/83 89 L 11/08/18 16:32 92 11/08/18 16:23 20 80 L 11/08/18 16:15 61 20 147/55 H 94 11/08/18 16:07 88 L 11/08/18 15:45 56 L 20 120/90 94 11/08/18 15:30 88 L 11/08/18 15:15 36.6 C 73 16 138/82 95 11/08/18 15:05 64 17 108/48 L 94 11/08/18 14:55 59 L 19 142/61 H 92 11/08/18 14:45 64 17 162/82 H 94 11/08/18 14:35 36.4 C L 65 22 162/93 H 93 11/08/18 14:25 67 23 161/78 H 98 11/08/18 14:15 69 22 148/59 H 100 11/08/18 14:06 36.8 C 74 20 149/90 H 100 11/08/18 09:18 36.7 C 59 L 20 165/92 H 98 Laboratory Results 11/08/18 11/08/18 11/08/18 Range/Units 19:04 19:04 19:04 WBC 9.43 (4.8-10.8) K/uL RBC 4.07 L (4.2-5.4) M/uL Hgb 12.1 (12.0-16.0) g/dL Hct 37.4 (37-47) % MCV 91.9 (80-100) fL MCH 29.7 (25-34) pg MCHC 32.4 (32-36) g/dL RDW Std Deviation 53.0 H (36.4-46.3) fL RDW Coeff of Shaquille 15.7 H (11.5-14.5) % Plt Count 285 (130-400) K/uL MPV 11.0 H (7.4-10.4) fL PT 10.7 (9.0-12.0) Seconds INR 1.0 (0.9-1.1) Creatinine 1.72 H (0.6-1.2) mg/dl Est Cr Clr Drug Dosing 21.7 ml/min Est GFR ( Amer) 31.3 Est GFR (Non-Af Amer) 27.0 Medications Administered Current Inpatient Medications Acetaminophen (Tylenol) 650 mg PO Q6H PRN PRN Reason: Mild Pain Stop: 12/08/18 18:20 Albuterol (Ventolin Hfa) 2 puffs INH QID PRN PRN Reason: Shortness Of Breath Stop: 12/08/18 18:20 Albuterol (Duoneb) 3 ml NEB Q6R OZZY Stop: 12/08/18 19:59 Last Admin: 11/08/18 19:44 Dose: 3 ml Documented by: Atenolol (Tenormin) 25 mg PO QAM [facility] Stop: 12/09/18 08:59 Enoxaparin Sodium (Lovenox) 30 mg SQ QAM [facility] Stop: 12/09/18 08:59 Lactated Ringer's (Lr) 1,000 mls @ 15 mls/hr IV .Q24H OZZY Stop: 11/09/18 05:59 Last Infusion: 11/08/18 12:30 Dose: Infused Documented by: Clindamycin Phosphate (Cleocin) 600 mg in 54 mls @ 100 mls/hr IV PREOP OZZY Stop: 11/09/18 06:01 Last Admin: 11/08/18 12:45 Dose: 100 mls/hr Documented by: Magnesium Oxide (Mag-Ox) 200 mg PO QAM [facility] Stop: 12/09/18 08:59 Ondansetron HCl (Zofran) 4 mg IV Q6H PRN PRN Reason: Nausea Stop: 12/08/18 18:20 Pantoprazole Sodium (Protonix) 40 mg PO BID [facility] Stop: 12/08/18 20:59 Potassium Chloride (Klor-Con M10) 10 meq PO BIDM [facility] Stop: 12/09/18 07:59 Tiotropium [place] (Spiriva) 1 puffs INH QAM [facility] Stop: 12/09/18 08:59 Vitamin D (Vitamin D3) 1,000 units PO DAILY [facility] Stop: 12/09/18 08:59 PG Care Time/CCT Total # of Minutes Spent Total Time Spent with Patient: Total time spent is greater than 50% in coordination of care (as documented) at patient's floor/unit and/or counseling patient: Resident Activity Tracking Resident Involvement: Resident Care Provided Care Provided: Adult Hospital Medicine (1) COPD (chronic obstructive pulmonary disease) COPD type: unspecified COPD Qualified Code(s): J44.9 - Chronic obstructive pulmonary disease, unspecified (2) Fung's esophagus Fung's esophagus type: with dysplasia of unspecified degree Qualified Code(s): K22.719 - Fung's esophagus with dysplasia, unspecified; K22.71 - Fung's esophagus with dysplasia (3) HTN (hypertension) Hypertension type: essential hypertension Qualified Code(s): I10 - Essential (primary) hypertension
[2018-11-08] MEDS: PANTOprazole 40 MG TAB PO SCH (21:34)
[2018-11-09] MEDS: ALBUT/IPRATROP 3MG/0.5MG NEB 3 ML VIAL NEB SCH ×2 (01:38→07:16)
[2018-11-09] MEDS ORDERED: CLINDAMYCIN 600 MG/54 ML BAG IV SCH (06:00)
[2018-11-09 07:32] LABS: Creatinine Clr Calc Pharmacy 22.4 ml/min; Est GFR (African American) 32.5
[2018-11-09] MEDS ORDERED: POTASSIUM CHLORIDE 10 MEQ TABCR PO SCH (08:00)
[2018-11-09] MEDS: PANTOprazole 40 MG TAB PO SCH (08:47)
[2018-11-09] MEDS ORDERED: MAGNESIUM OXIDE 400 MG TAB PO SCH (09:00)
[2018-11-09] MEDS ORDERED: TIOTROPIUM BROMIDE 5 PUFF/90 MCG INH INH SCH (09:00)
[2018-11-09] MEDS ORDERED: ENOXAPARIN INJ 30 MG/0.3 ML SYR SQ SCH (09:00)
[2018-11-09] MEDS ORDERED: CHOLECALCIFEROL 1,000 UNITS TAB PO SCH (09:00)
[2018-11-09] MEDS ORDERED: ATENOLOL 25 MG TABLET PO SCH (09:00)
--- NOTE | 2018-11-09 18:08 | Discharge Summary ---
Chica Rankin is an 83-year-old female with pulmonary dysfunction who was found to have a mass, which is growing in her right lower lobe. As part of this workup, I performed an endobronchial ultrasound and attempted navigational bronchoscopy. I explained to the family beforehand that we may not be able to get to this mass due to its location. We would do washings, however. On 11/08/2018, the patient underwent an uncomplicated endobronchial ultrasound with biopsy; however, we simply could not get her oxygen level up without oxygen and it was late. I was a bit concerned about this. Even though her x-ray looked good, I asked that she be watched overnight as I felt better about that. We brought her up and we were able to wean her off oxygen over the course of the night and the following morning, got her off the oxygen. I discharged her and we will see her back later in the week to go over her final pathology.
--- NOTE | 2018-11-11 07:25 | XRay Report ---
XR chest 2V routine CLINICAL HISTORY: Decreased left upper lung zone breath sounds. Possible pneumothorax COMPARISON STUDY: 11/08/2018 FINDINGS: The cardiac and mediastinal contours remain stable. There is radiographic evidence of emphy sema. There is no focal pulmonary consolidation. There is minor basilar atelectasis/scarring. There i s minimal blunting of the right posterior costophrenic angle. A trace effusion cannot be excluded. No pneumothorax is visualized.[ IMPRESSION: 1. No acute findings 2. No evidence of pneumothorax 3. Emphysema 4. Stable basilar atelectasis/scarring 5. Stable blunting of the right posterior costophrenic angle Electronically signed by: Meek Martin M.D. 11/11/2018 7:24 AM
== END 2018-11-09 10:15 | disposition home or self-care (01) ==
LOC: ASU 08:35 → 3N 08:35

== ENCOUNTER 2023-03-01 18:54 | Observation (INO) ==
[2023-03-01 20:42] LABS: Basophils # (auto) 0.11 K/uL (0.00-0.20); Basophils % (auto) 1.3 %; Eosinophils # (auto) 0.42 K/uL (0.00-0.50); Eosinophils % (auto) 4.9 %; Hematocrit (blood only) 39.8 % (37.0-47.0); Hemoglobin 12.6 g/dl (12.0-16.0); Immature Granulocytes # (auto) 0.02 K/uL (0.01-0.20); Immature Granulocytes % (auto) 0.2 %; Lymphocytes # (auto) 2.19 K/uL (1.20-3.40); Lymphocytes % (auto) 25.6 %; Mean Corpuscular Hemoglobin 29.7 pg (25.0-34.0); Mean Corpuscular Hgb Conc 31.7 g/dL (32.0-36.0); Mean Corpuscular Volume 93.9 fL (80.0-100.0); Mean Platelet Volume 10.8 fL (9.4-12.4); Monocytes # (auto) 0.83 K/uL (0.11-0.59); Monocytes % (auto) 9.7 %; Neutrophils # (auto) 4.98 K/uL (1.40-6.50); Neutrophils % (auto) 58.3 %; Platelet Count 390 K/uL (130-400); RDW Coefficient of Variation 14.9 % (11.5-14.5); RDW Standard Deviation 50.9 fL (36.4-46.3); Red Blood Count 4.24 M/uL (4.20-5.40); White Blood Count 8.55 K/ul (4.8-10.8)
[2023-03-01 20:43] LABS: Appearance Urine Clear (Clear); Bacteria Urine Automated Negative (Negative); Bilirubin Urine Negative (Negative); Blood Urine Negative (Negative); Cast Urine Automated 0 /lpf (0-5); Color Urine Yellow; Glucose Urine UA Negative (Negative); Ketones Urine Negative (Negative); Leukocyte Esterase Urine 2+ (Negative); Nitrite Urine Negative (Negative); Protein Urine Negative (Negative); RBC Urine Automated 0-4 /hpf (0-4); Specific Gravity Urine 1.011 (1.000-1.030); Urobilinogen Urine Negative (Negative)
[2023-03-01 21:00] LABS: Est GFR (African American) 31.1 ml/min; Potassium 4.1 mmol/L (3.5-5.1)
[2023-03-01 21:01] LABS: Albumin Globulin Ratio 1.1 (0.9-2); Albumin Level 4.2 gm/dl (3.4-5.0); BUN Creatinine Ratio 20.1 (10-20); Bilirubin,Total 0.4 mg/dl (0.2-1.0); Calcium 9.2 mg/dl (8.6-10.3); Creatinine Clr Calc Pharmacy 20.8 ml/min; Est GFR (Non-African American) 26.8 ml/min; Total Protein 8.2 gm/dl (6.0-8.3)
[2023-03-01 21:13] LABS: INR 1.1 (0.9-1.1); Partial Thromboplastin Ratio 1.1; Partial Thromboplastin Time 30.2 Seconds (21.0-31.0); Prothrombin Time 12.3 Seconds (9.0-12.0)
[2023-03-01 21:15] LABS: Troponin I High Sensitivity 8.3 pg/ml (0-14)
[2023-03-01 21:23] LABS: D Dimer 4390 ug/L FEU (0-500)
--- NOTE | 2023-03-01 22:27 | CT Scan Report ---
Exam(s): CT CHEST Without Contrast EXAM: CT Chest Without Intravenous Contrast CLINICAL HISTORY: Reason for exam: hemoptysis. TECHNIQUE: Axial computed tomography images of the chest without intravenous contrast. CTDI is 7.52 mGy and DLP is 265.48 mGy-cm. Automated exposure control was utilized for the study. A dose lowering technique was utilized adhering to the principles of ALARA. COMPARISON: 02/09/2023 FINDINGS: Lungs: Centrilobular emphysema. Pleural space: Unremarkable. No pneumothorax. No significant effusion. Heart: Unremarkable. No cardiomegaly. No significant pericardial effusion. No significant coronary artery calcifications. Bones/joints: Unremarkable. No acute fracture. No dislocation. Soft tissues: Unremarkable. Vasculature: Unremarkable. No thoracic aortic aneurysm. Lymph nodes: Unremarkable. No enlarged lymph nodes. Liver: Simple hepatic cysts measuring up to 1.5 cm. Spleen: Subcapsular perisplenic fluid collection measuring up to 2.5 cm in thickness that is now low density. This was likely present on prior study but isodense to the spleen representing an isodense hematoma that has now become low density. Kidneys and ureters: Patient is status post left nephrectomy. IMPRESSION: Subcapsular perisplenic fluid collection measuring up to 2.5 cm in thickness that is now low density. This was likely present on prior study but isodense to the spleen representing an isodense hematoma that has now become low density. No acute cardiopulmonary disease. Electronically signed by: Krishna Webb M.D. 03/01/23 22:26 PM
--- NOTE | 2023-03-01 23:58 | Emergency Department Note ---
History of Present Illness General Chief complaint: Back Injury/Pain Stated complaint: BACK PAIN, HURTS TO BREATHE, Time Seen by Provider: 03/01/23 20:42 Source: patient and family ( at bedside) History of Present Illness Provider complaint: Left back pain hemoptysis Maximum Pain Intensity: 7 87-year-old female with memory and cognitive impairment presents emergency department with . reports that the patient has been having difficulty breathing pain in her back when taking deep breaths since Sunday. He reports that she has been coughing up blood since Sunday. has tissues with blood in them which she states the patient has been coughing up. No falls or traumas. No abdominal pain. No headache. No fever. Patient is on Eliquis and was recently put on this. Home Medications Medication Instructions Recorded Confirmed Type cholecalciferol (vitamin D3) 25 1,000 unit PO QPM 11/07/18 03/01/23 History mcg (1,000 unit) capsule (Vitamin D3) magnesium 250 mg tablet 250 mg PO QPM 11/26/19 03/01/23 History potassium chloride 10 mEq 10 meq PO QAM #90 tabs 06/05/22 03/01/23 Rx tablet,extended release hydrochlorothiazide 25 mg tablet 25 mg PO DAILY #90 tabs 08/25/22 03/01/23 Rx atenolol 25 mg tablet 25 mg PO QAM #90 tabs 10/05/22 03/01/23 Rx albuterol sulfate 90 mcg/actuation 1 - 2 puff inhalation Q4H PRN 01/17/23 03/01/23 Rx aerosol inhaler (Ventolin HFA) shortness of breath or wheezing #6.7 grams apixaban 5 mg tablet (Eliquis) 5 mg PO BID #60 tabs 02/15/23 03/01/23 Rx cyanocobalamin (vitamin B-12) 1,000 mcg PO DAILY #90 tabs 02/15/23 03/01/23 Rx 1,000 mcg tablet olanzapine 2.5 mg tablet 2.5 mg PO DIRECTED #60 tabs 02/15/23 03/01/23 Rx fluticasone furoate 100 1 inh inhalation DAILY #60 ea 02/16/23 03/01/23 Rx mcg-vilanterol 25 mcg/dose inhalation powder (Breo Ellipta) guaifenesin 600 mg tablet, 600 mg PO BID 02/20/23 03/01/23 History extended release 12 hr (Mucinex) Allergies Allergy/AdvReac Type Severity Reaction Status Date / Time losartan Allergy Severe DYSPNEA Verified 02/20/23 13:45 nitrofurantoin Allergy Severe DYSPNEA Verified 02/20/23 13:45 terazosin Allergy Severe DYSPNEA Verified 02/20/23 13:45 amoxicillin Allergy Intermediate HIVES Verified 02/20/23 13:45 fluconazole Allergy Intermediate RASH, HIVES Verified 02/20/23 13:45 levofloxacin Allergy Intermediate DYSPNEA Verified 02/20/23 13:45 lisinopril Allergy Intermediate COUGH, Verified 02/20/23 13:45 DYSPNEA nifedipine Allergy Intermediate HIVES Verified 02/20/23 13:45 phenazopyridine Allergy Intermediate HIVES Verified 02/20/23 13:45 sulfamethoxazole Allergy Intermediate HIVES Verified 02/20/23 13:45 trimethoprim Allergy Intermediate HIVES Verified 02/20/23 13:45 Past Med/Surg History Medical History 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 Endobronchial ultrasound with biopsy. 2. Electromagnetic navigational bronchoscopy with washings. Dr. Brambila 11-08-18 History of cardiac cath NO STENTS. History of difficult intubation left hand assisted nephrectomy: 02/21/18: Grade 1 view, Glidescope #3, ETT 7.5 at [facility] History of nephrectomy, left 02/21/18 - Glidescope #3, ETT #7.5, HiLo Oral, Grade 1 View H/O cataract extraction S/P insertion of iliac artery stent B/L History of ureter stent L/SINCE REMOVED History of tonsillectomy H/O transurethral destruction of bladder lesion Hx of cystoscopy Hx of hysterectomy BSO Family History Aunt Family history of diabetes mellitus Mother Breast cancer Father History of kidney cancer Other Cancer Hypertension Lung disease No family history of adverse response to anesthesia Denies family history of Ovarian cancer Prostate cancer Myocardial infarction Colorectal cancer Social History Smoking Status: Never smoker Tobacco Type: Cigarettes Cigarettes Per Day: 20; Second Hand Exposure: Yes (father smoked); Do You Dip or Chew Tobacco: No; Hx Alcohol Use: No Hx Substance Use: No Preferred Language: Malawian Communication Ability: Effective Visual Impairment: No Limitations Slip Cover Maker Required: No Beliefs That Will Affect Care: None marital status: Current Living Situation: Spouse current occupational status: retired Feels Safe at Home: Yes Assistive Devices: None Physical Exam Vital Signs Vital Signs - 24 hr 03/01/23 19:19 03/01/23 19:23 03/01/23 21:59 Temperature 36.8 C Temperature Source Temporal Artery Scan Pulse Rate 69 57 L Pulse Rate from SpO2 Sensor Respiratory Rate 94 H Respiratory Depth Normal Blood Pressure 213/68 H Blood Pressure Mean 116 Pulse Oximetry 94 99 Oxygen Delivery Method Nasal Cannula Nasal Cannula Oxygen Flow Rate 2 2 Sepsis Recent Fever Within 48 Hours No Sepsis New/Unexplained Change in Mental Status No Sepsis Action Taken by Nursing No Action Required 03/01/23 23:00 03/01/23 23:30 Temperature Temperature Source Pulse Rate 54 L 56 L Pulse Rate from SpO2 Sensor 56 L Respiratory Rate 19 22 Respiratory Depth Blood Pressure Blood Pressure Mean Pulse Oximetry 100 Oxygen Delivery Method Nasal Cannula Oxygen Flow Rate 2 Sepsis Recent Fever Within 48 Hours Sepsis New/Unexplained Change in Mental Status Sepsis Action Taken by Nursing Physical Exam HENT: Exam performed. -Head: Normocephalic and atraumatic. EYES: Conjunctivae and EOM are normal. Pupils are equal, round, and reactive to light. Right eye exhibits no discharge. Left eye exhibits no discharge. No scleral icterus. NECK: Normal range of motion. Neck supple. No JVD present. CV: Normal rate, regular rhythm, normal heart sounds and intact distal pulses. There is no peripheral edema. Palpable radial pulses bue. PULM/CHEST: Effort normal and breath sounds normal. No respiratory distress. No stridor. She has no wheezes. She has no rales. -Chest Wall: She exhibits no tenderness. ABD: The abdomen is soft. Bowel sounds are normal. She has no distension. No mass is present. There is no tenderness. There is no rebound, no guarding MUSC/SKEL: No C, T, or L-spine tenderness. NEURO: She has normal strength. No cranial nerve deficit or sensory deficit. Course Course 2041: The patient was evaluated in room C3. A complete history and physical exam was performed Cardiac monitoring: An order was placed for continuous cardiac monitoring. The monitor shows a rate of 60 with sinus rhythm interpreted by me 2102: Spoke with pulmonology Dr. Harper. He recommends holding the patient's Eliquis get a CT of the chest without contrast and admitting the patient to medicine. He states he can evaluate the patient tomorrow if any changes in her medications need to be done or if there needs to be any bronchoscopy done. 2149: Received a [place] text from Dr. Harper. He recommended the patient be hydrated so that she can obtain a CTA of the chest tomorrow to rule out PE and see if the patient truly needs to be on Eliquis. Unfortunately CT of the chest was already conducted, he is aware. He still recommends that the patient be hydrated and attempt to get CTA of the chest accomplished tomorrow. Hospitalist Dr. Cai notified of this plan. Medical Decision Making Medical Records Attestation: I reviewed the patient's medical records. External medical records reviewed. Patient was seen on February 09, 2023. She had a CT of the chest concern for a lung nodule. Patient was discharged home cefdinir. Patient represented to the emergency department on February 10, 2023 and was admitted to the hospital. On February 09 patient had a chest x-ray head CT chest CT and abdomen pelvis CT which was negative. While admitted to the hospitalist service the patient had a VQ scan done on February 14 which showed heterogeneous perfusion to both lungs which was technically internal terminates given the lack of ventilation imaging although the heterogeneity could be related to emphysema concerning for pulmonary embolus. Patient had a ultrasound of the bilateral lower extremities completed the following day which was negative for DVT. According to the discharge summary on February 15, 2023 the patient was started on Lovenox for 7 days and then transition to Eliquis. They recommended the Eliquis for 3 to 6 months. Laboratory Data Attestation: I reviewed the patient's lab results. 03/01/23 20:15 03/01/23 20:15 Lab Results 03/01/23 03/01/23 Range/Units 19:46 20:15 WBC 8.55 (4.8-10.8) K/ul RBC 4.24 (4.20-5.40) M/uL Hgb 12.6 (12.0-16.0) g/dl Hct 39.8 (37.0-47.0) % MCV 93.9 (80.0-100.0) fL MCH 29.7 (25.0-34.0) pg MCHC 31.7 L (32.0-36.0) g/dL RDW Std Deviation 50.9 H (36.4-46.3) fL RDW Coeff of Shaquille 14.9 H (11.5-14.5) % Plt Count 390 (130-400) K/uL MPV 10.8 (9.4-12.4) fL Immature Gran % (Auto) 0.2 % Neut % (Auto) 58.3 % Lymph % (Auto) 25.6 % [place] % (Auto) 9.7 % Eos % (Auto) 4.9 % Baso % (Auto) 1.3 % Neut # (Auto) 4.98 (1.40-6.50) K/uL Lymph # (Auto) 2.19 (1.20-3.40) K/uL [place] # (Auto) 0.83 H (0.11-0.59) K/uL Eos # (Auto) 0.42 (0.00-0.50) K/uL Baso # (Auto) 0.11 (0.00-0.20) K/uL Immature Gran # (Auto) 0.02 (0.01-0.20) K/uL PT 12.3 H (9.0-12.0) Seconds INR 1.1 (0.9-1.1) APTT 30.2 (21.0-31.0) Seconds PTT Ratio 1.1 D-Dimer 4390 H* (0-500) ug/L FEU Sodium 140 (136-145) mmol/L Potassium 4.1 (3.5-5.1) mmol/L Chloride 102 (98-107) mmol/L Carbon Dioxide 32 (21-32) mmol/L Anion Gap 6 (3-11) BUN 34 H (6-23) mg/dl Creatinine 1.69 H (0.6-1.2) mg/dl Est Cr Clr Drug Dosing 20.8 ml/min Est GFR ( Amer) 31.1 ml/min Est GFR (Non-Af Amer) 26.8 ml/min BUN/Creatinine Ratio 20.1 H (10-20) Glucose 92 (70-99(Fasting)) mg/dl Calcium 9.2 (8.6-10.3) mg/dl Total Bilirubin 0.4 (0.2-1.0) mg/dl AST 12 L (13-39) U/L ALT 8 (7-52) U/L Alkaline Phosphatase 68 (34-104) U/L Troponin I High Sens 8.3 (0-14) pg/ml Total Protein 8.2 (6.0-8.3) gm/dl Albumin 4.2 (3.4-5.0) gm/dl Globulin 4.0 (2.5-4.0) gm/dl Albumin/Globulin Ratio 1.1 (0.9-2) Lipase 53 (11-82) U/L Urine Color Yellow Urine Appearance Clear (Clear) Urine pH 6.0 (4.5-7.5) Ur Specific [place] 1.011 (1.000-1.030) Urine Protein Negative (Negative) Urine Glucose (UA) Negative (Negative) Urine Ketones Negative (Negative) Urine Blood Negative (Negative) Urine Nitrite Negative (Negative) Urine Bilirubin Negative (Negative) Urine Urobilinogen Negative (Negative) Ur Leukocyte Esterase 2+ H (Negative) Urine WBC (Auto) 5-10 H (0-5) /hpf Urine RBC (Auto) 0-4 (0-4) /hpf U Hyaline Cast (Auto) 0 (0-5) /lpf U Epithel Cells (Auto) 10-20 H (0-5) /lpf Urine Bacteria (Auto) Negative (Negative) Imaging Data Attestation: I personally reviewed and interpreted this imaging study as follows: My Impression: Chest x-ray negative. Airway clear. No pneumothorax. No consolidation. No cardiomegaly or cephalization.. No free air under the diaphragm. No fractures of the skeletal structures. Radiologist's Impression: Chest CT 03/01/23 21:00 Exam(s): CT CHEST Without Contrast EXAM: CT Chest Without Intravenous Contrast CLINICAL HISTORY: Reason for exam: hemoptysis. TECHNIQUE: Axial computed tomography images of the chest without intravenous contrast. CTDI is 7.52 mGy and DLP is 265.48 mGy-cm. Automated exposure control was utilized for the study. A dose lowering technique was utilized adhering to the principles of ALARA. COMPARISON: 02/09/2023 FINDINGS: Lungs: Centrilobular emphysema. Pleural space: Unremarkable. No pneumothorax. No significant effusion. Heart: Unremarkable. No cardiomegaly. No significant pericardial effusion. No significant coronary artery calcifications. Bones/joints: Unremarkable. No acute fracture. No dislocation. Soft tissues: Unremarkable. Vasculature: Unremarkable. No thoracic aortic aneurysm. Lymph nodes: Unremarkable. No enlarged lymph nodes. Liver: Simple hepatic cysts measuring up to 1.5 cm. Spleen: Subcapsular perisplenic fluid collection measuring up to 2.5 cm in thickness that is now low density. This was likely present on prior study but isodense to the spleen representing an isodense hematoma that has now become low density. Kidneys and ureters: Patient is status post left nephrectomy. IMPRESSION: Subcapsular perisplenic fluid collection measuring up to 2.5 cm in thickness that is now low density. This was likely present on prior study but isodense to the spleen representing an isodense hematoma that has now become low density. No acute cardiopulmonary disease. Electronically signed by: Krishna Webb M.D. 03/01/23 22:26 PM ECG Data Attestation: I personally reviewed and interpreted this ECG as follows: Indication: + SOB/dyspnea Rate (beats per minute): 61 Rhythm: + normal sinus ECG Intervals/blocks: + Normal AL and + Normal QT-c ECG ST segments: + Normal ST segments Additional Comments: QRS 74 MDM Narrative 2041: The patient was evaluated in room C3. A complete history and physical exam was performed Cardiac monitoring: An order was placed for continuous cardiac monitoring. The monitor shows a rate of 60 with sinus rhythm interpreted by me 2102: Spoke with pulmonology Dr. Harper. He recommends holding the patient's Eliquis get a CT of the chest without contrast and admitting the patient to medicine. He states he can evaluate the patient tomorrow if any changes in her medications need to be done or if there needs to be any bronchoscopy done. 2149: Received a [place] text from Dr. Harper. He recommended the patient be hydrated so that she can obtain a CTA of the chest tomorrow to rule out PE and see if the patient truly needs to be on Eliquis. Unfortunately CT of the chest was already conducted, he is aware. He still recommends that the patient be hydrated and attempt to get CTA of the chest accomplished tomorrow. Hospitalist Dr. Cai notified of this plan. Impression & Plan Hemoptysis Discharge Plan Visit Data Chief Complaint: Back Injury/Pain Stated Complaint: BACK PAIN, HURTS TO BREATHE, ED Provider: [place] Gar[place] Discharge Problem: Hemoptysis Patient Disposition: Admitted As Inpatient Forms Stand Alone Forms: [facility] Prescriptions Prescriptions: No Action potassium chloride 10 mEq tablet extended release 10 meq PO QAM Qty: 90 3RF hydrochlorothiazide 25 mg tablet 25 mg PO DAILY Qty: 90 3RF atenolol 25 mg tablet 25 mg PO QAM Qty: 90 3RF Rx Instructions: for blood pressure albuterol sulfate [Ventolin HFA] 90 mcg/actuation HFA aerosol inhaler 1 - 2 puff inhalation Q4H PRN (Reason: shortness of breath or wheezing) Qty: 6.7 5RF guaifenesin [Mucinex] 600 mg tablet extended release 12hr 600 mg PO BID magnesium 250 mg Tablet 250 mg PO QPM cholecalciferol (vitamin D3) [Vitamin D3] 1,000 unit Capsule 1,000 unit PO QPM Eliquis 5 mg tablet 5 mg PO BID Qty: 60 2RF cyanocobalamin (vitamin B-12) 1,000 mcg tablet 1,000 mcg PO DAILY Qty: 90 3RF Rx Instructions: purchase [id number] at [employer] olanzapine 2.5 mg tablet 2.5 mg PO DIRECTED Qty: 60 1RF Rx Instructions: 2.5mg PO HS every night. 2.5mg PO qam NEEDED for agitation/anxiety/confusion. fluticasone furoate-vilanterol [Breo Ellipta] 100-25 mcg/dose blister with device 1 inh inhalation DAILY Qty: 60 5RF Rx Instructions: rinse mouth with water after each use; spit water out. Referrals Referrals: Yenni Rodriguez MD [Primary Care Provider] -
[2023-03-02] MEDS ORDERED: ACETAMINOPHEN 325 MG TAB PO PRN (00:51)
[2023-03-02] MEDS ORDERED: ONDANSETRON INJ 2 MG/ML 2 ML VIAL IV PRN (00:51)
[2023-03-02] MEDS ORDERED: ALBUTEROL HFA 8 GM INHALER INH PRN (00:51)
[2023-03-02] MEDS ORDERED: SODIUM CHLORIDE 0.9% 1,000 ML IV SCH (00:51)
--- NOTE | 2023-03-02 00:56 | History & Physical Report ---
Date of Service March 02, 2023 The patient was seen and admitted on 03/01/2023 Assessment & Plan (1) Hemoptysis: (2) Cognitive impairment: (3) Supplemental oxygen dependent: (4) Memory problem: (5) Pulmonary emboli: (6) Chronic kidney disease, stage IV (severe): (7) Hypertension: (8) History of lumbosacral spine surgery: (9) S/P insertion of iliac artery stent: Plan Hemoptysis- Blood-tinged sputum noted by , but has difficulty remembering due to underlying memory dysfunction Hold apixaban Admit to monitored bed Pulmonary embolism/elevated D-dimer- Patient had been admitted from 02/10-02/15/2023, was diagnosed with pulmonary embolism, and was placed on apixaban. Due to patient's significant kidney disease, VQ scan was performed on 02/14 which was indeterminant/ intermediate probability On 02/15/2023, patient had bilateral lower extremity venous Dopplers done which were negative for DVT CT scan of abdomen and pelvis performed on 02/09/2023 showed her prior left nephrectomy CT scan chest without contrast this evening, is being read as a subcapsular perisplenic fluid collection measuring up to 2.5 cm in thickness that is now low-density. This was likely present on prior study but isodense to the spleen representing an isodense hematoma that has now become a low-density. Pulmonology/critical care Dr. Harper has been consulted and will see patient in the a.m. Of note, D-dimer on 02/15/2023 was 3730, and today is 4390 CKD stage IV/history of left nephrectomy- Creatinine 1.69 on admission, with range 1.50-1.73 NSS 100 mils per hour x1 L, recheck laboratories in a.m. Hold HCTZ, potassium chloride, magnesium in the interim Hypertension- Continue atenolol 25 mg every morning Holding HCTZ as noted Hydralazine 10 mg IV every 4 hours as needed for systolic blood pressure above 160 COPD/pulmonary hypertension- Continue Breo elliptica Continue albuterol HFA 2 puffs as needed Continue nasal cannula oxygen, with baseline O2 2 L requirement at home Chronic low back pain- Review of pelvic x-ray from 07/16/2022 notes lumbar spine posterior fixation hardware and bilateral iliac artery stents (noted biliary stents) If no other explanation for elevated D-dimer, further evaluation of patency of the bilateral iliac artery stents could be performed, but reluctant to do so this evening due to severe CKD and no lower extremity claudication symptoms. We will order lower extremity arterial Dopplers reports that her main source of pain has been lumbar, and is likely associated with previous surgery Admission and Anticipated Discharge Date Admission Date: March 01, 2023 History of Present Illness Chief Complaint: The patient presents to the emergency department due to 's concern regarding blood-tinged sputum that initially began about 6 days ago, had worsened somewhat this morning, and was referred into the ED for assessment. The patient's provides most of the history, as the patient has dementia, and appears to have issues with recollection of the events as they took place Primary Care Provider: Yenni Rodriguez MD The patient is a 87-year-old female with a past medical history including cognitive impairment, memory problem, history of metabolic encephalopathy, pulmonary emboli, B12 deficiency, CKD stage IV, UTI, hypertension, Fung's esophagus, COPD, PAD, pulmonary hypertension, GERD, history of transitional cell carcinoma of kidney. She was most recently admitted to [facility] from 02/10-02/15/2023 with a suspected pulmonary embolism, and was started on apixaban. Her reports that she had been doing well until about 6 days ago, when she started with small blood cane spots on her usual sputum. She was brought into the emergency department today due to persistence and slight worsening. The patient herself is not able to communicate her history well, due to underlying cognitive impairment and memory dysfunction. Pulmonology has asked that the patient be admitted to the hospitalist service, holding apixaban, and placing on IV fluids so the patient may possibly get a CTA tomorrow if her renal function is improved Allergies Allergy/AdvReac Type Severity Reaction Status Date / Time losartan Allergy Severe DYSPNEA Verified 02/20/23 13:45 nitrofurantoin Allergy Severe DYSPNEA Verified 02/20/23 13:45 terazosin Allergy Severe DYSPNEA Verified 02/20/23 13:45 amoxicillin Allergy Intermediate HIVES Verified 02/20/23 13:45 fluconazole Allergy Intermediate RASH, HIVES Verified 02/20/23 13:45 levofloxacin Allergy Intermediate DYSPNEA Verified 02/20/23 13:45 lisinopril Allergy Intermediate COUGH, Verified 02/20/23 13:45 DYSPNEA nifedipine Allergy Intermediate HIVES Verified 02/20/23 13:45 phenazopyridine Allergy Intermediate HIVES Verified 02/20/23 13:45 sulfamethoxazole Allergy Intermediate HIVES Verified 02/20/23 13:45 trimethoprim Allergy Intermediate HIVES Verified 02/20/23 13:45 Home Medications Medication Instructions Recorded Confirmed Type cholecalciferol (vitamin D3) 25 1,000 unit PO QPM 11/07/18 03/01/23 History mcg (1,000 unit) capsule (Vitamin D3) magnesium 250 mg tablet 250 mg PO QPM 11/26/19 03/01/23 History potassium chloride 10 mEq 10 meq PO QAM #90 tabs 06/05/22 03/01/23 Rx tablet,extended release hydrochlorothiazide 25 mg tablet 25 mg PO DAILY #90 tabs 08/25/22 03/01/23 Rx atenolol 25 mg tablet 25 mg PO QAM #90 tabs 10/05/22 03/01/23 Rx albuterol sulfate 90 mcg/actuation 1 - 2 puff inhalation Q4H PRN 01/17/23 03/01/23 Rx aerosol inhaler (Ventolin HFA) shortness of breath or wheezing #6.7 grams apixaban 5 mg tablet (Eliquis) 5 mg PO BID #60 tabs 02/15/23 03/01/23 Rx cyanocobalamin (vitamin B-12) 1,000 mcg PO DAILY #90 tabs 02/15/23 03/01/23 Rx 1,000 mcg tablet olanzapine 2.5 mg tablet 2.5 mg PO DIRECTED #60 tabs 02/15/23 03/01/23 Rx fluticasone furoate 100 1 inh inhalation DAILY #60 ea 02/16/23 03/01/23 Rx mcg-vilanterol 25 mcg/dose inhalation powder (Breo Ellipta) guaifenesin 600 mg tablet, 600 mg PO BID 02/20/23 03/01/23 History extended release 12 hr (Mucinex) Past Med/Surg History Medical History (Updated 03/02/23 @ 00:09 by Montana Garland MD) History of 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 Seasonal allergies Stage 3b chronic kidney disease Hyperlipidemia GERD (gastroesophageal reflux disease) Pulmonary HTN "MODERATE" RVSP 56MMHG PER 02/2018 ECHO Hypertension Recurrent transitional cell carcinoma of bladder (2010) Vitamin D deficiency Pulmonary nodule PAD (peripheral artery disease) COPD (chronic obstructive pulmonary disease) Fung's esophagus Lumbar stenosis with neurogenic claudication Surgical History (Updated 03/02/23 @ 03:35 by Sky Clark MD) History of lumbosacral spine surgery History of bronchoscopy History of colonoscopy History of esophagogastroduodenoscopy (EGD) S/P bronchoscopy with biopsy 1. Endobronchial ultrasound with biopsy. 2. Electromagnetic navigational bronchoscopy with washings. Dr. Brambila 11-08-18 History of cardiac cath NO STENTS. History of difficult intubation left hand assisted nephrectomy: 02/21/18: Grade 1 view, Glidescope #3, ETT 7.5 at [facility] History of nephrectomy, left 02/21/18 - Glidescope #3, ETT #7.5, HiLo Oral, Grade 1 View H/O cataract extraction S/P insertion of iliac artery stent B/L History of ureter stent L/SINCE REMOVED History of tonsillectomy H/O transurethral destruction of bladder lesion Hx of cystoscopy Hx of hysterectomy BSO Family History Aunt Family history of diabetes mellitus Mother Breast cancer Father History of kidney cancer Other Cancer Hypertension Lung disease No family history of adverse response to anesthesia Denies family history of Ovarian cancer Prostate cancer Myocardial infarction Colorectal cancer Social History Smoking Status: Never smoker Tobacco Type: Cigarettes Cigarettes Per Day: 20; Second Hand Exposure: Yes (father smoked); Do You Dip or Chew Tobacco: No; Hx Alcohol Use: No Hx Substance Use: No Preferred Language: Dutch Communication Ability: Effective Visual Impairment: No Limitations Setter Machine Required: No Beliefs That Will Affect Care: None marital status: Current Living Situation: Spouse current occupational status: retired Feels Safe at Home: Yes Assistive Devices: None Review of Systems Review of Systems: Review of systems is primarily supplied by the patient's , since she is limited due to cognitive impairment and memory dysfunction. He reports that she was in her usual state of health since after her most recent admission, with complaint of her chronic low back pain. Physical Exam Physical Exam: The patient is awake, alert.she has difficulty with answering questions due to her memory loss issues. Normocephalic and atraumatic, lying in bed and in no acute distress. HEENT--PERRL, EOMI, mucous membranes and oropharynx normal Neck--supple. No JVD. No bruits. Thyroid normal, trachea midline, no adenopathy. Heart--normal S1 and S2. No murmurs, rubs or gallops. Lungs--clear bilaterally, no respiratory distress, no accessory muscle use. Abdomen--normal bowel sounds and soft. Nontender. Nondistended, no hernias or masses, no organomegaly. Extremities--no cyanosis or clubbing. No edema. Dermatologic--normal skin turgor, normal color, no abnormal lymph nodes, no rash. Neurologic--cranial nerves II through XII grossly intact. Rheumatologic--normal range of motion. Psychiatric--normal affect. Results & Data Results & Data Vital Signs (Past 12 Hours) Vital Signs Temp Pulse Resp BP BP Pulse Ox O2 Del Method 03/01/23 23:30 56 L 22 100 Nasal Cannula 03/01/23 23:00 54 L 19 03/01/23 22:00 191/100 H 03/01/23 21:59 57 L 03/01/23 19:23 99 Nasal Cannula 03/01/23 19:19 36.8 C 69 94 H 213/68 H 94 Nasal Cannula O2 Flow Rate 03/01/23 23:30 2 03/01/23 23:00 03/01/23 22:00 03/01/23 21:59 03/01/23 19:23 2 03/01/23 19:19 2 Laboratory Results Laboratory Results WBC 8.55 K/ul (4.8-10.8) 03/01/23 20:15 RBC 4.24 M/uL (4.20-5.40) 03/01/23 20:15 Hgb 12.6 g/dl (12.0-16.0) 03/01/23 20:15 Hct 39.8 % (37.0-47.0) 03/01/23 20:15 MCV 93.9 fL (80.0-100.0) 03/01/23 20:15 MCH 29.7 pg (25.0-34.0) 03/01/23 20:15 MCHC 31.7 g/dL (32.0-36.0) L 03/01/23 20:15 RDW Std Deviation 50.9 fL (36.4-46.3) H 03/01/23 20:15 RDW Coeff of Shaquille 14.9 % (11.5-14.5) H 03/01/23 20:15 Plt Count 390 K/uL (130-400) 03/01/23 20:15 MPV 10.8 fL (9.4-12.4) 03/01/23 20:15 Immature Gran % (Auto) 0.2 % 03/01/23 20:15 Neut % (Auto) 58.3 % 03/01/23 20:15 Lymph % (Auto) 25.6 % 03/01/23 20:15 Wake % (Auto) 9.7 % 03/01/23 20:15 Eos % (Auto) 4.9 % 03/01/23 20:15 Baso % (Auto) 1.3 % 03/01/23 20:15 Neut # (Auto) 4.98 K/uL (1.40-6.50) 03/01/23 20:15 Lymph # (Auto) 2.19 K/uL (1.20-3.40) 03/01/23 20:15 Wake # (Auto) 0.83 K/uL (0.11-0.59) H 03/01/23 20:15 Eos # (Auto) 0.42 K/uL (0.00-0.50) 03/01/23 20:15 Baso # (Auto) 0.11 K/uL (0.00-0.20) 03/01/23 20:15 Immature Gran # (Auto) 0.02 K/uL (0.01-0.20) 03/01/23 20:15 PT 12.3 Seconds (9.0-12.0) H 03/01/23 20:15 INR 1.1 (0.9-1.1) 03/01/23 20:15 APTT 30.2 Seconds (21.0-31.0) 03/01/23 20:15 PTT Ratio 1.1 03/01/23 20:15 D-Dimer 4390 ug/L FEU (0-500) H* 03/01/23 20:15 Sodium 140 mmol/L (136-145) 03/01/23 20:15 Potassium 4.1 mmol/L (3.5-5.1) 03/01/23 20:15 Chloride 102 mmol/L (98-107) 03/01/23 20:15 Carbon Dioxide 32 mmol/L (21-32) 03/01/23 20:15 Anion Gap 6 (3-11) 03/01/23 20:15 BUN 34 mg/dl (6-23) H 03/01/23 20:15 Creatinine 1.69 mg/dl (0.6-1.2) H 03/01/23 20:15 Est Cr Clr Drug Dosing 20.8 ml/min 03/01/23 20:15 Est GFR ( Amer) 31.1 ml/min 03/01/23 20:15 Est GFR (Non-Af Amer) 26.8 ml/min 03/01/23 20:15 BUN/Creatinine Ratio 20.1 (10-20) H 03/01/23 20:15 Glucose 92 mg/dl (70-99(Fasting)) 03/01/23 20:15 Calcium 9.2 mg/dl (8.6-10.3) 03/01/23 20:15 Total Bilirubin 0.4 mg/dl (0.2-1.0) 03/01/23 20:15 AST 12 U/L (13-39) L 03/01/23 20:15 ALT 8 U/L (7-52) 03/01/23 20:15 Alkaline Phosphatase 68 U/L (34-104) 03/01/23 20:15 Troponin I High Sens 8.3 pg/ml (0-14) 03/01/23 20:15 Total Protein 8.2 gm/dl (6.0-8.3) 03/01/23 20:15 Albumin 4.2 gm/dl (3.4-5.0) 03/01/23 20:15 Globulin 4.0 gm/dl (2.5-4.0) 03/01/23 20:15 Albumin/Globulin Ratio 1.1 (0.9-2) 03/01/23 20:15 Lipase 53 U/L (11-82) 03/01/23 20:15 Urine Color Yellow 03/01/23 19:46 Urine Appearance Clear (Clear) 03/01/23 19:46 Urine pH 6.0 (4.5-7.5) 03/01/23 19:46 Ur Specific [place] 1.011 (1.000-1.030) 03/01/23 19:46 Urine Protein Negative (Negative) 03/01/23 19:46 Urine Glucose (UA) Negative (Negative) 03/01/23 19:46 Urine Ketones Negative (Negative) 03/01/23 19:46 Urine Blood Negative (Negative) 03/01/23 19:46 Urine Nitrite Negative (Negative) 03/01/23 19:46 Urine Bilirubin Negative (Negative) 03/01/23 19:46 Urine Urobilinogen Negative (Negative) 03/01/23 19:46 Ur Leukocyte Esterase 2+ (Negative) H 03/01/23 19:46 Urine WBC (Auto) 5-10 /hpf (0-5) H 03/01/23 19:46 Urine RBC (Auto) 0-4 /hpf (0-4) 03/01/23 19:46 U Hyaline Cast (Auto) 0 /lpf (0-5) 03/01/23 19:46 U Epithel Cells (Auto) 10-20 /lpf (0-5) H 03/01/23 19:46 Urine Bacteria (Auto) Negative (Negative) 03/01/23 19:[address] 03/01/23 21:00 Exam(s): CT CHEST Without Contrast EXAM: CT Chest Without Intravenous Contrast CLINICAL HISTORY: Reason for exam: hemoptysis. TECHNIQUE: Axial computed tomography images of the chest without intravenous contrast. CTDI is 7.52 mGy and DLP is 265.48 mGy-cm. Automated exposure control was utilized for the study. A dose lowering technique was utilized adhering to the principles of ALARA. COMPARISON: 02/09/2023 FINDINGS: Lungs: Centrilobular emphysema. Pleural space: Unremarkable. No pneumothorax. No significant effusion. Heart: Unremarkable. No cardiomegaly. No significant pericardial effusion. No significant coronary artery calcifications. Bones/joints: Unremarkable. No acute fracture. No dislocation. Soft tissues: Unremarkable. Vasculature: Unremarkable. No thoracic aortic aneurysm. Lymph nodes: Unremarkable. No enlarged lymph nodes. Liver: Simple hepatic cysts measuring up to 1.5 cm. Spleen: Subcapsular perisplenic fluid collection measuring up to 2.5 cm in thickness that is now low density. This was likely present on prior study but isodense to the spleen representing an isodense hematoma that has now become low density. Kidneys and ureters: Patient is status post left nephrectomy. IMPRESSION: Subcapsular perisplenic fluid collection measuring up to 2.5 cm in thickness that is now low density. This was likely present on prior study but isodense to the spleen representing an isodense hematoma that has now become low density. No acute cardiopulmonary disease. Electronically signed by: Krishna Webb M.D. 03/01/23 22:26 PM Code Status & VTE Plan Code Status Full code VTE Prophylaxis Plan VTE Prophylaxis will be ordered: Yes PG Care Time/CCT Total # of Minutes Spent Total Time Spent with Patient: Total time spent is greater than 50% in coordination of care (as documented) at patient's floor/unit and/or counseling patient: Coding Level of Care Code 46563 INT INP/OBS CARE 3/75MIN Diagnoses Hemoptysis R04.2 Cognitive impairment R41.89 Supplemental oxygen dependent Z99.81 Memory problem R41.3 Pulmonary emboli I26.99 Chronic kidney disease, stage IV (severe) N18.4 Hypertension I10 History of lumbosacral spine surgery Z98.890 S/P insertion of iliac artery stent Z95.828
[2023-03-02] MEDS ORDERED: hydrALAZINE HCL 20 MG/ML VIAL IV ONE (02:01)
[2023-03-02] MEDS: hydrALAZINE HCL 20 MG/ML VIAL IV PRN ×2 (04:10→08:05)
--- NOTE | 2023-03-02 07:01 | Ultrasound Report ---
US aorta duplex CLINICAL HISTORY: 87 years-old Female with check patency of bilateral iliac artery stents. Follow-up study in a patient with biiliac stent grafts COMPARISON: CT 02/09/2023 TECHNIQUE: Multiple real time sonographic images of the abdominal aorta were obtained assessing cook- scale appearance as well as color. Doppler and spectral waveform analysis. FINDINGS: MEASUREMENTS: Proximal Aorta: 1.7 x 1.5 cm. Mid Aorta: 1.2 x 1.5 cm. Distal Aorta: 1.3 x 1.2 cm. Right Common Iliac Artery: Right common iliac stent graft. Elevated peak systolic velocities in the p roximal aspect of the right common iliac artery, 292 cm/s. Diminished waveforms are noted throughout the remainder of the right common iliac artery with peak systolic velocities measuring up to approxim ately 24 cm/s. Monophasic turbulent flow within the distal aspect of the vessel with peak systolic ve locities measuring 79 cm/s. Diffuse narrowing with atherosclerosis. Left Common Iliac Artery: Patent with portions obscured by bowel gas. Peak systolic velocities measur e up to 102 cm/s. Pulsatile color Doppler flow and a normal spectral waveform are seen within the proximal aorta with d iffuse atherosclerosis. IMPRESSION: Atherosclerosis with patent bilateral iliac stent grafts. Elevated peak systolic velocities within th e proximal aspect of the right common iliac graft is suggestive of high-grade stenosis. The left pedro luis c artery is patent. ACT 112: Negative or not required by law. The above report was generated using voice recognition software. It may contain grammatical, syntax o r spelling errors. Electronically signed by: Brain Garcia M.D. 03/02/2023 6:58 AM
[2023-03-02] MEDS: FLUTICASONE/VILANTEROL 100/25MCG 14 PUFFS/INHALER INH SCH ×2 (08:01→08:10)
--- NOTE | 2023-03-02 08:07 | XRay Report ---
XR chest 1V portable CLINICAL HISTORY: sob TECHNIQUE: Single frontal radiograph of the chest was obtained. Comparison: None available at the time of this dictation. FINDINGS: No lines and tubes are seen. Calcified aortic knob is seen. The lungs are clear. No evidence of pleur al effusion or pneumothorax. IMPRESSION: No acute abnormalities and in particular no radiographic evidence of pneumonia. ACT 112: Negative or not required by law. Electronically signed by: Sergio Veloz M.D. 03/02/2023 8:05 AM
[2023-03-02 08:17] LABS: Basophils # (auto) 0.07 K/uL (0.00-0.20); Basophils % (auto) 0.8 %; Eosinophils # (auto) 0.31 K/uL (0.00-0.50); Eosinophils % (auto) 3.7 %; Hematocrit (blood only) 38.4 % (37.0-47.0); Hemoglobin 12.5 g/dl (12.0-16.0); Immature Granulocytes # (auto) 0.03 K/uL (0.01-0.20); Immature Granulocytes % (auto) 0.4 %; Lymphocytes # (auto) 1.46 K/uL (1.20-3.40); Lymphocytes % (auto) 17.2 %; Mean Corpuscular Hemoglobin 29.8 pg (25.0-34.0); Mean Corpuscular Hgb Conc 32.6 g/dL (32.0-36.0); Mean Corpuscular Volume 91.4 fL (80.0-100.0); Mean Platelet Volume 11.1 fL (9.4-12.4); Monocytes # (auto) 0.71 K/uL (0.11-0.59); Monocytes % (auto) 8.4 %; Neutrophils # (auto) 5.91 K/uL (1.40-6.50); Neutrophils % (auto) 69.5 %; Platelet Count 356 K/uL (130-400); RDW Standard Deviation 49.7 fL (36.4-46.3); White Blood Count 8.49 K/ul (4.8-10.8)
[2023-03-02 08:45] LABS: Albumin Level 3.8 gm/dl (3.4-5.0); BUN Creatinine Ratio 23.2 (10-20); Calcium 9.1 mg/dl (8.6-10.3); Creatinine Clr Calc Pharmacy 27.4 ml/min; Est GFR (African American) 44.8 ml/min; Est GFR (Non-African American) 38.6 ml/min; Potassium 3.6 mmol/L (3.5-5.1)
[2023-03-02] MEDS ORDERED: guaiFENesin 600 MG TABCR PO SCH (09:00)
[2023-03-02] MEDS ORDERED: CYANOCOBALAMIN (B-12) 500 MCG TABLET PO SCH (09:00)
[2023-03-02] MEDS ORDERED: ATENOLOL 25 MG TABLET PO SCH (09:00)
--- NOTE | 2023-03-02 10:16 | Pulmonary Consultation ---
Date of Consultation March 02, 2023 Assessment & Plan (1) Elevated d-dimer: (2) Hemoptysis: (3) Hx of ventilation/perfusion scan: (4) Secondary pulmonary arterial hypertension: (5) Elevated blood pressure reading with diagnosis of hypertension: Plan Recommend chest CT PE protocol now that her creatinine clearance is improved after gentle hydration to definitively rule in versus rule out PE. VQ scan was intermediate during last admssion but her pretest probability was low at that time for PE. She does have an elevated D-dimer, but this is of unclear significance given her cardiovascular issues and underlying CKD stage III. I suspect her hemoptysis is secondary to elevated left ventricular end-diastolic pressures due to diastolic heart failure and mild pulmonary hypertension noted on echo from February 14, 2023 in the setting of anticoagulation. She has been very hypertensive this admission and recommend adequate control of her systolic blood pressure. Recommendations regarding further anticoagulation will be dependent on the CT chest PE protocol results of her chest. It should be noted that lower extremity venous Dopplers on her prior admission were negative for DVT. Thank you for the consult. We will follow with you. History of Present Illness Reason for Consultation: Hemoptysis Attending Physician: Do Link MD History of Present Illness 87-year-old female with a history of dementia, Fung's esophagus, transitional cell carcinoma of the kidney and pulmonary nodule presenting to the hospital due to hemoptysis. Patient is an unreliable historian and denies any cough or hemoptysis. She said she was having some shortness of breath yesterday which is since resolved. She is currently on room air. Apparently she had some periodic episodes of delirium and was agitated and yelling at the nurse per nursing staff earlier this morning. She was not able to answer orientation questions appropriately today. She told me that the month is July and she was uncertain why she was in the hospital. She had a noncontrast CT chest yesterday which revealed centrilobular emphysema and a subcapsular perisplenic fluid collection measuring up to 2.5 cm concerning for possible hematoma. She was recently discharged from the hospital on February 15 due to abdominal dis comfort. She ultimately underwent a VQ scan because of an elevated D-dimer, symptoms concerning for chronic PE and CKD stage III. VQ scan came back as intermediate. Ventilation scans were not done given COVID-19 pandemic and only perfusion scans were done. She was discharged on Eliquis and reportedly had hemoptysis per the ER physician and chart review. No family is available at bedside to discuss further history. She has not had any evidence of hemoptysis since admission. Her Eliquis is currently on hold I was called by the ER yesterday and recommended gentle hydration and repeating her creatinine this morning which has improved to 1.25. I discussed with hospitalist service and recommended getting a chest CTA which will be ordered. Allergies Allergy/AdvReac Type Severity Reaction Status Date / Time losartan Allergy Severe DYSPNEA Verified 02/20/23 13:45 nitrofurantoin Allergy Severe DYSPNEA Verified 02/20/23 13:45 terazosin Allergy Severe DYSPNEA Verified 02/20/23 13:45 amoxicillin Allergy Intermediate HIVES Verified 02/20/23 13:45 fluconazole Allergy Intermediate RASH, HIVES Verified 02/20/23 13:45 levofloxacin Allergy Intermediate DYSPNEA Verified 02/20/23 13:45 lisinopril Allergy Intermediate COUGH, Verified 02/20/23 13:45 DYSPNEA nifedipine Allergy Intermediate HIVES Verified 02/20/23 13:45 phenazopyridine Allergy Intermediate HIVES Verified 02/20/23 13:45 sulfamethoxazole Allergy Intermediate HIVES Verified 02/20/23 13:45 trimethoprim Allergy Intermediate HIVES Verified 02/20/23 13:45 Home Medications Medication Instructions Recorded Confirmed Type cholecalciferol (vitamin D3) 25 1,000 unit PO QPM 11/07/18 03/01/23 History mcg (1,000 unit) capsule (Vitamin D3) magnesium 250 mg tablet 250 mg PO QPM 11/26/19 03/01/23 History potassium chloride 10 mEq 10 meq PO QAM #90 tabs 06/05/22 03/01/23 Rx tablet,extended release hydrochlorothiazide 25 mg tablet 25 mg PO DAILY #90 tabs 08/25/22 03/01/23 Rx atenolol 25 mg tablet 25 mg PO QAM #90 tabs 10/05/22 03/01/23 Rx albuterol sulfate 90 mcg/actuation 1 - 2 puff inhalation Q4H PRN 01/17/23 03/01/23 Rx aerosol inhaler (Ventolin HFA) shortness of breath or wheezing #6.7 grams apixaban 5 mg tablet (Eliquis) 5 mg PO BID #60 tabs 02/15/23 03/01/23 Rx cyanocobalamin (vitamin B-12) 1,000 mcg PO DAILY #90 tabs 02/15/23 03/01/23 Rx 1,000 mcg tablet olanzapine 2.5 mg tablet 2.5 mg PO DIRECTED #60 tabs 02/15/23 03/01/23 Rx fluticasone furoate 100 1 inh inhalation DAILY #60 ea 02/16/23 03/01/23 Rx mcg-vilanterol 25 mcg/dose inhalation powder (Breo Ellipta) guaifenesin 600 mg tablet, 600 mg PO BID 02/20/23 03/01/23 History extended release 12 hr (Mucinex) Patient History Medical History (Updated 03/02/23 @ 10:15 by Sandor Harper MD) Elevated blood pressure reading with diagnosis of hypertension Secondary pulmonary arterial hypertension Hx of ventilation/perfusion scan Elevated d-dimer History of 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 Seasonal allergies Stage 3b chronic kidney disease Hyperlipidemia GERD (gastroesophageal reflux disease) Pulmonary HTN "MODERATE" RVSP 56MMHG PER 02/2018 ECHO Hypertension Recurrent transitional cell carcinoma of bladder (2010) Vitamin D deficiency Pulmonary nodule PAD (peripheral artery disease) COPD (chronic obstructive pulmonary disease) Fung's esophagus Lumbar stenosis with neurogenic claudication Surgical History (Updated 03/02/23 @ 03:35 by Sky Clark MD) History of lumbosacral spine surgery History of bronchoscopy History of colonoscopy History of esophagogastroduodenoscopy (EGD) S/P bronchoscopy with biopsy 1. Endobronchial ultrasound with biopsy. 2. Electromagnetic navigational bronchoscopy with washings. Dr. Brambila 11-08-18 History of cardiac cath NO STENTS. History of difficult intubation left hand assisted nephrectomy: 02/21/18: Grade 1 view, Glidescope #3, ETT 7.5 at [facility] History of nephrectomy, left 02/21/18 - Glidescope #3, ETT #7.5, Hi[facility] Oral, Grade 1 View H/O cataract extraction S/P insertion of iliac artery stent B/L History of ureter stent L/SINCE REMOVED History of tonsillectomy H/O transurethral destruction of bladder lesion Hx of cystoscopy Hx of hysterectomy BSO Family History Aunt Family history of diabetes mellitus Mother Breast cancer Father History of kidney cancer Other Cancer Hypertension Lung disease No family history of adverse response to anesthesia Denies family history of Ovarian cancer Prostate cancer Myocardial infarction Colorectal cancer Social History Smoking Status: Former smoker Tobacco Type: Cigarettes Cigarettes Per Day: 20; Second Hand Exposure: No; Do You Dip or Chew Tobacco: No; Tobacco Cessation Education Requested by Patient: No Hx Alcohol Use: No Hx Substance Use: No Preferred Language: [place] Communication Ability: Effective Visual Impairment: No Limitations Corrugated Sheet Material Sheeter Required: No Beliefs That Will Affect Care: None marital status: Current Living Situation: Spouse current occupational status: retired Other Information That Helps Us Care for You: No Feels Safe at Home: Yes Safety Concerns: Feels Safe At This Time Assistive Devices: Denture - Upper, Glasses and Oxygen - Continuous Assistive Devices Comment: Oxygen to ambulate Review of Systems Review of Systems: All systems reviewed & are unremarkable except as noted in HPI & below Physical Exam Physical Exam: Constitutional: Patient appears to be of their stated age. Patient is in no apparent distress. Patient is well-developed. Eyes: Pupils are equal round and reactive to light. Conjunctivae are normal. Anicteric sclera. Ears nose, mouth and throat: Mallampati class 2. Normal posterior oropharynx. Uvula is midline. Neck: Trachea is midline. Visual inspection is normal. Respiratory: Clear to auscultation bilaterally. No use of accessory muscles. No significant clubbing noted. Cardiovascular: Regular rate and rhythm. No murmurs. No edema. Gastrointestinal: Normal bowel sounds, soft, nontender and nondistended. No hepatosplenomegaly noted. Musculoskeletal: No cyanosis. Patient is able to move all extremities. Strength is 5 out of 5 in the upper and lower extremities. Skin: No rashes, warm dry and intact. Neurologic: No obvious focal neurological deficits seen. Psychiatric: Agitated at times. Alert and oriented x1. Results & Data Results & Data Vital Signs (Past 12 Hours) Vital Signs Temp Pulse Pulse Resp BP BP BP 03/02/23 07:42 36.5 C 80 207/79 H 03/02/23 06:00 72 18 178/88 H 03/02/23 05:57 64 03/02/23 04:27 03/02/23 03:56 36.6 C 70 17 181/81 H 03/02/23 03:53 36.6 C 70 18 181/81 H 03/02/23 02:33 178/64 H 03/02/23 02:11 36.5 C 18 172/74 H 03/02/23 02:05 199/78 H 03/02/23 01:00 03/02/23 00:30 61 14 154/100 H 03/02/23 00:00 55 L 21 03/01/23 23:30 56 L 22 03/01/23 23:00 54 L 19 Pulse Ox Pulse Ox O2 Del Method O2 Del Method O2 Flow Rate O2 Flow Rate 03/02/23 07:42 93 Room Air 03/02/23 06:00 95 Nasal Cannula 2 03/02/23 05:57 03/02/23 04:27 2 03/02/23 03:56 94 Nasal Cannula 2 03/02/23 03:53 94 Nasal Cannula 03/02/23 02:33 03/02/23 02:11 97 Nasal Cannula 2 03/02/23 02:05 03/02/23 01:00 98 Nasal Cannula 2 03/02/23 00:30 97 03/02/23 00:00 03/01/23 23:30 100 Nasal Cannula 2 03/01/23 23:00 PG Care Time/CCT Total # of Minutes Spent Total Time Spent with Patient: Total time spent is greater than 50% in coordination of care (as documented) at patient's floor/unit and/or counseling patient: Coding Level of Care Code 77590 INT INP/OBS CARE 3/75MIN Diagnoses Elevated d-dimer R79.89 Hemoptysis R04.2 Hx of ventilation/perfusion scan Z92.89 Secondary pulmonary arterial hypertension I27.21 Elevated blood pressure reading with diagnosis of hypertension I10
[2023-03-02] MEDS ORDERED: OPTIRAY 320 500ml IV ONE (10:49)
--- NOTE | 2023-03-02 11:09 | CT Scan Report ---
CT angio chest PE protocol CLINICAL HISTORY: PE TECHNIQUE: Multidetector row helical CT of the chest was performed with angiographic protocol. Evans l and sagittal reformations were obtained. Coronal and sagittal MIPS were obtained from the axial don a set and were submitted for review. Automated dose lowering techniques and/or adjustment according to patient size were utilized for this exam. CT DOSE: 498.42 mGy.cm Comparison: Comparison is made to CT chest 03/01/2023 FINDINGS: Lungs and pleura: Emphysema is seen with bibasilar atelectasis versus scarring. Atelectasis of the ri ght middle lobe is noted. Heart and pericardium: Heart size is normal. No pericardial effusion. Vessels: No evidence of pulmonary embolism. Mediastinum and luke: Unremarkable. Chest wall and lower neck: Unremarkable. Abdomen: For findings below the diaphragm, please refer to CT of the abdomen dated the same. Bones: Degenerative changes in the thoracic spine. IMPRESSION: 1. No acute abnormality and in particular no evidence of pulmonary embolus. 2. Emphysema. ACT 112: Negative or not required by law. Electronically signed by: Sergio Veloz M.D. 03/02/2023 11:07 AM
--- NOTE | 2023-03-02 13:00 | Electrocardiogram Report ---
Test Reason : Blood Pressure : / mmHG Vent. Rate : 061 BPM Atrial Rate : 061 BPM P-R Int : 130 ms QRS Dur : 074 ms QT Int : 460 ms P-R-T Axes : 000 036 083 degrees QTc Int : 463 ms Normal sinus rhythm Normal ECG When compared with ECG of 13-FEB-2023 16:51, T wave inversion no longer evident in Lateral leads Confirmed by Yoseph Carrington ([id number]) on 03/02/2023 12:59:52 PM Referred By: REFERRED SELF Confirmed By:Yoseph Carrington
--- NOTE | 2023-03-02 17:02 | Discharge Summary ---
Discharge Summary Date of Service March 02, 2023 Notes For Next Care Provider Needs Vascular Surgery follow up for Right common femoral artery stenosis Medication Changes From Visit Discontinue Eliquis and Mucinex Admission HPI Per Admitting Provider The patient is a 87-year-old female with a past medical history including cognitive impairment, memory problem, history of metabolic encephalopathy, pulmonary emboli, B12 deficiency, CKD stage IV, UTI, hypertension, Fung's esophagus, COPD, PAD, pulmonary hypertension, GERD, history of transitional cell carcinoma of kidney. She was most recently admitted to [facility] from 02/10-02/15/2023 with a suspected pulmonary embolism, and was started on apixaban. Her reports that she had been doing well until about 6 days ago, when she started with small blood cane spots on her usual sputum. She was brought into the emergency department today due to persistence and slight worsening. The patient herself is not able to communicate her history well, due to underlying cognitive impairment and memory dysfunction. Pulmonology has asked that the patient be admitted to the hospitalist service, holding apixaban, and placing on IV fluids so the patient may possibly get a CTA tomorrow if her renal function is improved Principal Dx & Hospital Course #1 = Principal Diagnosis (1) Hemoptysis: (2) Cognitive impairment: (3) Supplemental oxygen dependent: (4) Memory problem: (5) Chronic kidney disease, stage IV (severe): (6) Hypertension: (7) History of lumbosacral spine surgery: (8) S/P insertion of iliac artery stent: Plan Hemoptysis- Blood-tinged sputum noted by , but has difficulty remembering due to underlying memory dysfunction Held apixaban and had resolution CT CHest noncon no pulm hemorrhage CTA CHest shows no PEs so Eliquis can be STOPPED Pulmonary embolism/elevated D-dimer- Patient had been admitted from 02/10-02/15/2023, was diagnosed with pulmonary embolism, and was placed on apixaban. Due to patient's significant kidney disease, VQ scan was performed on 02/14 which was indeterminant/ intermediate probability On 02/15/2023, patient had bilateral lower extremity venous Dopplers done which were negative for DVT CT scan of abdomen and pelvis performed on 02/09/2023 showed her prior left nephrectomy CT scan chest without contrast being read as a subcapsular perisplenic fluid collection measuring up to 2.5 cm in thickness that is now low-density. This was likely present on prior study but isodense to the spleen representing an isodense hematoma that has now become a low-density. Pulmonology/critical care Dr. Harper has been consulted and recommended CTA CHrst--> no PE as above, can dc Eliquis No need for bronch. 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 Is allergic to nifedipine and ACEi,ARB could give terazosin, clonidine, hydralazine-defer to Nephro COPD/pulmonary hypertension- Continue Breo elliptia Continue albuterol HFA 2 puffs as needed Continue nasal cannula oxygen, with baseline O2 2 L requirement at home Chronic low back pain- Review of pelvic x-ray from 07/16/2022 notes lumbar spine posterior fixation hardware and bilateral iliac artery stents (noted biliary stents) Aortic US shows R common femoral high grade stenosis but she denies claudication symptoms and this would not likely cause her pain Pain has actually been more in RLQ but nor patient have noted her to have the pain at all for the last 1-2 weeks-resolved f/u Vascular Surgery as outpt for femoral artery stenosis Discharge Exam Constitutional WD/WN, vitals as above Neck trachea midline, no thyromegaly Respiratory normal respiratory effort, lungs clear to auscultation Cardiovascular RRR, no murmur, no edema Right femoral pulse 1+, Left 2+ R popliteal 1+, Left 2+ Rigth pedal pulses 1+, Left 2+ Chest (Breasts) Chest: normal inspection of chest Gastrointestinal (Abdomen) normal bowel sounds, soft, nontender, no hepatosplenomegaly Musculoskeletal Extremities: extremities normal to inspection; no cyanosis and no clubbing Skin no rashes, warm and dry Neurologic moves all extremities and awake; no focal motor deficits Lymphatic no lymphedema Updated Medication List Medication Instructions Recorded Confirmed Type cholecalciferol (vitamin D3) 25 1,000 unit PO QPM 11/07/18 03/01/23 History mcg (1,000 unit) capsule (Vitamin D3) magnesium 250 mg tablet 250 mg PO QPM 11/26/19 03/01/23 History potassium chloride 10 mEq 10 meq PO QAM #90 tabs 06/05/22 03/01/23 Rx tablet,extended release hydrochlorothiazide 25 mg tablet 25 mg PO DAILY #90 tabs 08/25/22 03/01/23 Rx atenolol 25 mg tablet 25 mg PO QAM #90 tabs 10/05/22 03/01/23 Rx albuterol sulfate 90 mcg/actuation 1 - 2 puff inhalation Q4H PRN 01/17/23 03/01/23 Rx aerosol inhaler (Ventolin HFA) shortness of breath or wheezing #6.7 grams apixaban 5 mg tablet (Eliquis) 5 mg PO BID #60 tabs 02/15/23 03/01/23 Rx cyanocobalamin (vitamin B-12) 1,000 mcg PO DAILY #90 tabs 02/15/23 03/01/23 Rx 1,000 mcg tablet olanzapine 2.5 mg tablet 2.5 mg PO DIRECTED #60 tabs 02/15/23 03/01/23 Rx fluticasone furoate 100 1 inh inhalation DAILY #60 ea 02/16/23 03/01/23 Rx mcg-vilanterol 25 mcg/dose inhalation powder (Breo Ellipta) guaifenesin 600 mg tablet, 600 mg PO BID 02/20/23 03/01/23 History extended release 12 hr (Mucinex) Hospital Stay Data Consultations 03/01/23 21:39 ED Decision to Admit Stat 03/02/23 00:51 Consult Pulmonology Routine Diagnostic Imagining Performed 03/01/23 21:00 CT chest diagnostic wo con Stat 03/02/23 03:57 US aorta duplex Urgent 03/02/23 10:06 CT angio chest PE protocol Urgent Pending Results Patient Have Any Pending Studies at Discharge: No Discharge Instructions Given to Patient (Per Discharging Provider) You were admitted after coughing up blood. This was caused by being on a blood thinner and by high blood pressure. You had a CT scan of the chest which showed you did NOT have blood clots in the lungs and therefore you do NOT need to take the Eliquis (apixiban) anymore. Please talk to Dr. Momin about improving your blood pressure control. You were found incidentally to have a narrowed artery in your pelvis on the right and should have follow up with Dr. Salamanca for this. Total Time Total Time Spent Total Time Spent (In Minutes): 35 min Total Time Includes: Examination of the Patient, Discharge Planning, Medication Reconciliation and Communication With Other Providers (Pulmonology) Coding Level of Care Code 28739 INP/OBS DISCH >30 MIN Diagnoses Hemoptysis R04.2 Cognitive impairment R41.89 Supplemental oxygen dependent Z99.81 Memory problem R41.3 Chronic kidney disease, stage IV (severe) N18.4 Hypertension I10 History of lumbosacral spine surgery Z98.890 S/P insertion of iliac artery stent Z95.828
[2023-03-02] MEDS ORDERED: CHOLECALCIFEROL 1,000 UNITS 25 MCG TAB PO SCH (21:00)
== END 2023-03-02 17:45 | disposition home or self-care (01) ==
LOC: EDINP 18:54 → ED 18:54 → SUATTDRO 22:11 → 2N 03-02 00:51 → 2S 03-02 03:55

== ENCOUNTER 2023-12-26 06:19 | Inpatient (IN) ==
--- NOTE | 2023-12-20 12:23 | Anesthesiology Consultation ---
Date of Service December 20, 2023 Assessment & Plan (1) Encounter for pre-operative examination: Chart Review Chart Review: Pending: Refer to Additional Notes / Consult section (pending PCP note 12/12/23 (still in draft; )) and Patient NOT seen in Pre Admission Testing -Per 12/14/23 labs, eGFR 29.8; will order NSS. BMP to be repeated AM of surgery Infectious Disease screening: Per PAT nursing assessment on 12/19/23, No known infectious disease contacts in past 10 days or current infectious disease symptoms. No recent travel outside the country. History Surgery Operation Date: 12/26/23 07:30 Proposed Procedures p Right Carotid Endarterectomy - Weston Salamanca MD Height/Weight Height: 5 ft 2 in Weight: 58.967 kg Allergies Allergy/AdvReac Type Severity Reaction Status Date / Time losartan Allergy Severe DYSPNEA Verified 12/19/23 13:15 nitrofurantoin Allergy Severe DYSPNEA Verified 12/19/23 13:15 terazosin Allergy Severe DYSPNEA Verified 12/19/23 13:15 amoxicillin Allergy Intermediate HIVES Verified 12/19/23 13:15 fluconazole Allergy Intermediate RASH, HIVES Verified 12/19/23 13:15 levofloxacin Allergy Intermediate DYSPNEA Verified 12/19/23 13:15 lisinopril Allergy Intermediate COUGH, Verified 12/19/23 13:15 DYSPNEA nifedipine Allergy Intermediate HIVES Verified 12/19/23 13:15 phenazopyridine Allergy Intermediate HIVES Verified 12/19/23 13:15 sulfamethoxazole Allergy Intermediate HIVES Verified 12/19/23 13:15 trimethoprim Allergy Intermediate HIVES Verified 12/19/23 13:15 Medications Home Medications Medication Instructions Recorded Confirmed Last Taken cholecalciferol (vitamin D3) 25 1,000 unit PO QPM 11/07/18 12/19/23 09/23/23 mcg (1,000 unit) capsule (Vitamin D3) magnesium 250 mg tablet 250 mg PO QPM 11/26/19 12/19/23 09/23/23 albuterol sulfate 90 mcg/actuation 1 - 2 puff inhalation Q4H PRN 01/17/23 12/19/23 Unknown aerosol inhaler (Ventolin HFA) shortness of breath or wheezing #6.7 grams potassium chloride 10 mEq 10 meq PO QAM #90 tabs 06/05/23 12/19/23 09/24/23 tablet,extended release aspirin 81 mg tablet,delayed 81 mg PO QAM 10/01/23 12/19/23 Unknown release atenolol 25 mg tablet 25 mg PO QAM #90 tabs 10/01/23 12/19/23 Unknown tiotropium bromide 18 mcg capsule 1 cap inhalation QAM #90 10/01/23 12/19/23 Unknown with inhalation device (Spiriva inhalations with HandiHaler) hydrochlorothiazide 25 mg tablet 25 mg PO QAM 12/19/23 12/19/23 Unknown rosuvastatin 20 mg tablet 20 mg PO QAM 12/19/23 12/19/23 Unknown Past Medical History Medical History (Updated 12/20/23 @ 13:13 by Adrianna Lopez PA-C) Aortoiliac occlusive disease s/p b/l common iliac artery stenting and R external iliac artery stent 2016. Per Vascular note, R common iliac and external iliac artery stents occluded in postop period following L nephrectomy. 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 Momin; baseline creat 1.5-1.7 Past Family History Family History Aunt Family history of diabetes mellitus Mother Breast cancer Father History of kidney cancer Other Cancer Hypertension Lung disease No family history of adverse response to anesthesia Denies family history of Ovarian cancer Prostate cancer Myocardial infarction Colorectal cancer Past Surgical History Surgical History (Updated 12/20/23 @ 12:22 by Adrianna Lopez PA-C) H/O cataract extraction rt/lt H/O transurethral destruction of bladder lesion History of bronchoscopy duplicate History of cardiac cath pt denies History of colonoscopy History of difficult intubation left hand assisted nephrectomy: 02/21/18: Grade 1 view, Glidescope #3, ETT 7.5 at [facility] History of esophagogastroduodenoscopy (EGD) History of lumbosacral spine surgery "many years ago," lower back History of nephrectomy, left 02/21/18 - Glidescope #3, ETT #7.5, HiLo Oral, Grade 1 View History of tonsillectomy History of ureter stent left>removed Hx of cystoscopy Hx of hemorrhoidectomy Hx of hysterectomy BSO S/P bronchoscopy with biopsy 1. Endobronchial ultrasound with biopsy. 2. Electromagnetic navigational bronchoscopy with washings. Dr. Brambila 11-08-18 S/P insertion of iliac artery stent bilateral, 2017, prior to kidney removal. Per Vascular note, R common iliac and external iliac artery stents occluded in postop period following L nephrectomy Social History Smoking Status: Former smoker tobacco type: cigarettes Smoking cigarettes per day: 20 Do You Dip or Chew Tobacco: No Smoking End Date: 2008 Hx Alcohol Use: No Hx Substance Use: No substance use type: does not use Lab Results Anesthesia Preop Results Results Anesthesia Widget: WBC 9.83 K/ul (4.8-10.8) 12/14/23 Hgb 12.6 g/dl (12.0-16.0) 12/14/23 Hct 40.5 % (37.0-47.0) 12/14/23 Plt 481 K/uL (130-400) H 12/14/23 Na 138 mmol/L (136-145) 12/14/23 K 3.9 mmol/L (3.5-5.1) 12/14/23 Cl 101 mmol/L (98-107) 12/14/23 CO2 29 mmol/L (21-32) 12/14/23 BUN 32 mg/dl (6-23) H 12/14/23 Creat 1.54 mg/dl (0.6-1.2) H 12/14/23 Glucose Level 95 mg/dl (70-99(Fasting)) 12/14/23 PT 10.9 Seconds (9.0-12.0) 12/14/23 PTT 27 Seconds (21-31) 12/14/23 INR 1.0 (0.9-1.1) 12/14/23 Blood Type B Positive 12/14/23 Antibody Screen NEGATIVE 12/14/23 Testing Electrocardiogram Date: 10/19/23 Findings: + SB @ (59bpm) No significant change from 03/01/23 Chest X-Ray Date: 10/19/23 CM and emphysema with no acute cardiopulmonary abnormality identified. Echocardiogram Date: 02/14/23 EF: 65-70% LV Function: normal RWMA: + none moderate cLVH Small pericardial effusion without echocardiographic evidence of tamponade physiology mild pulm HTN, est RVSP 47mmHg Compared to 02/23/18, RVSP has declined Gr I DD. mild LA. Mild TR. Other Testing Neck CTA 09/24/23: FINDINGS: Moderate atherosclerotic plaque within the distal aortic arch which measures up to 3.6 cm in diameter. This is similar to the prior study and is consistent with mild aneurysmal dilatation. There is focal high-grade stenosis at the takeoff of the left subclavian artery best seen on image 49 of approximately 90%. There is focal moderate to severe stenosis within the proximal left subclavian artery on image 105 approximately 80%. This is similar to the prior study. Calcified plaque at the takeoff of the left common carotid artery resulting in mild stenosis of approximately 40%. This is also unchanged. Moderate to severe calcified plaque within the bilateral carotid bifurcations. This results in up to 50% focal stenosis at the takeoff of the left internal carotid artery and 90% stenosis within the proximal right internal carotid artery best seen on axial image 265. No significant stenosis within the right common carotid artery. The mid to distal bilateral internal carotid arteries are patent. Diminished perfusion within the proximal left vertebral artery with moderate stenosis at the takeoff of the left vertebral artery. However, no evidence for a dissection or occlusion. The right vertebral artery is widely patent. Emphysema at the lung apices. No pneumothorax. There is a fluid level resulting in near complete opacification of the right maxillary sinus. IMPRESSION: 1. 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 This remains unchanged. 2. Proximal left subclavian artery stenosis as described above. 3. Moderate to severe calcified plaque within the bilateral carotid bifurcations resulting in bilateral proximal internal carotid artery stenosis as described above. This is most pronounced at the right proximal internal carotid artery which demonstrates up to 90% stenosis. 4. Diminished perfusion within the proximal left vertebral artery likely secondary to the moderate stenosis at the takeoff of the vertebral artery. 5. Emphysema. 6. Acute right maxillary sinusitis. 7. Additional findings as described above. Venous Doppler LE LT 10/12/23: Currently there is normal compressibility of the deep venous system from the common femoral vein through the proximal calf veins. No superficial venous thrombosis is identified.
[2023-12-26 07:14] LABS: BUN Creatinine Ratio 20.2 (10-20); Calcium 9.2 mg/dl (8.6-10.3); Creatinine Clr Calc Pharmacy 16.8 ml/min; Est GFR (African American) 28.1 ml/min; Est GFR (Non-African American) 24.2 ml/min; Potassium 3.8 mmol/L (3.5-5.1)
[2023-12-26] MEDS ORDERED: ROCURONIUM BROMIDE 10 MG/ML 5 ML VIAL IV ONE (07:16)
[2023-12-26] MEDS ORDERED: ONDANSETRON INJ 2 MG/ML 2 ML VIAL ONE (07:16)
[2023-12-26] MEDS ORDERED: PROPOFOL IV EMULSION 10 MG/ML 20 ML VIAL IV ONE ×3 (07:16→09:41)
[2023-12-26] MEDS ORDERED: fentaNYL citrate PF 100 MCG/2 ML VIAL ONE (07:16)
[2023-12-26] MEDS ORDERED: LIDOCAINE 2% 2 ML VIAL/AMP(20MG/ML) INFIL ONE (07:16)
[2023-12-26] MEDS ORDERED: DEXAMETHASONE SOD INJ 4 MG/ML VIAL ONE ×2 (07:16→10:05)
[2023-12-26] MEDS ORDERED: SUGAMMADEX SODIUM 200 MG/2 ML VIAL IV ONE (07:17)
[2023-12-26] MEDS ORDERED: REMIFENTANIL HCL 1 MG VIAL IV ONE (07:20)
[2023-12-26] MEDS: SODIUM CHLORIDE 0.9% 1000ML IV SCH (07:25)
[2023-12-26] MEDS: LACTATED RINGER'S 1,000 ML IV SCH ×2 (07:26→19:45)
--- NOTE | 2023-12-26 07:43 | History & Physical Report ---
Date of Service December 26, 2023 Assessment & Plan (1) Stenosis of right carotid artery: Plan: Patient is admitted for a right CEA. I have discussed the risks options and benefits of the procedure with the patient. The patient understands the risks options and benefits and agrees to the procedure. History of Present Illness Chief Complaint: Right internal carotid artery stenosis Primary Care Provider: Yenni Rodriguez MD Patient is known for aortoiliac occlusive disease, having undergone a bilateral common iliac artery stenting and right external iliac artery stent placement back in 2017. She unfortunately occluded her right common iliac and external iliac artery stents in 2018 in the postop period after undergoing a left nephrectomy due to renal CA. Her right leg remains viable and she did not have significant symptoms, so no further intervention was recommended for the occlusion. She has been subsequently followed either every 6 months or annually for this problem, and has remained relatively asymptomatic and functional despite her right iliac artery occlusion. Patient is a very poor historian at this point, as her states that she has some mild dementia. She does state that she was complaining of some neck discomfort and went to the hospital, where she had a CT scan of her neck, and was advised that she has problems with the "veins in her neck." She denies any history of CVA in the past. She denies any recent symptoms of cerebrovascular insufficiency, including amaurosis, unilateral extremity weakness numbness or tingling, difficulty speaking or swallowing, facial droop, sudden onset of new confusion, or other complaints. She does state that she had to have her esophagus stretched a few weeks ago, and her states that the patient has had slowly progressing mild dementia for some time. She currently denies headache, fever, chest pain, shortness of br eath, palpitations, abdominal pain, nausea, vomiting, rest pain, claudication, nonhealing wounds or ulcers, other complaints. In general she is a 88-year-old female who has a severe stenosis of her right internal carotid artery. We are planning on doing a TCAR procedure however she became short of breath both on Plavix and Brilinta. We therefore cannot do a TCAR and will need to do an endarterectomy. Allergies Allergy/AdvReac Type Severity Reaction Status Date / Time losartan Allergy Severe DYSPNEA Verified 12/26/23 06:58 nitrofurantoin Allergy Severe DYSPNEA Verified 12/26/23 06:58 terazosin Allergy Severe DYSPNEA Verified 12/26/23 06:58 amoxicillin Allergy Intermediate HIVES Verified 12/26/23 06:58 fluconazole Allergy Intermediate RASH, HIVES Verified 12/26/23 06:58 levofloxacin Allergy Intermediate DYSPNEA Verified 12/26/23 06:58 lisinopril Allergy Intermediate COUGH, Verified 12/26/23 06:58 DYSPNEA nifedipine Allergy Intermediate HIVES Verified 12/26/23 06:58 phenazopyridine Allergy Intermediate HIVES Verified 12/26/23 06:58 sulfamethoxazole Allergy Intermediate HIVES Verified 12/26/23 06:58 trimethoprim Allergy Intermediate HIVES Verified 12/19/23 13:15 clopidogrel [From Plavix] AdvReac Intermediate SOB Verified 12/26/23 07:37 ticagrelor [From Brilinta] AdvReac Intermediate SOB Verified 12/26/23 07:37 Home Medications Medication Instructions Recorded Confirmed Type cholecalciferol (vitamin D3) 25 1,000 unit PO QPM 11/07/18 12/26/23 History mcg (1,000 unit) capsule (Vitamin D3) magnesium 250 mg tablet 250 mg PO QPM 11/26/19 12/26/23 History albuterol sulfate 90 mcg/actuation 1 - 2 puff inhalation Q4H PRN 01/17/23 12/26/23 Rx aerosol inhaler (Ventolin HFA) shortness of breath or wheezing #6.7 grams potassium chloride 10 mEq 10 meq PO QAM #90 tabs 06/05/23 12/26/23 Rx tablet,extended release aspirin 81 mg tablet,delayed 81 mg PO QAM 10/01/23 12/26/23 History release atenolol 25 mg tablet 25 mg PO QAM #90 tabs 10/01/23 12/26/23 Rx tiotropium bromide 18 mcg capsule 1 cap inhalation QAM #90 10/01/23 12/19/23 Rx with inhalation device (Spiriva inhalations with HandiHaler) hydrochlorothiazide 25 mg tablet 25 mg PO QAM 12/19/23 12/26/23 History rosuvastatin 20 mg tablet 20 mg PO QAM 12/19/23 12/26/23 History Past Med/Surg History Problem List (Updated 12/26/23 @ 07:43 by Weston Salamanca MD) Stenosis of right carotid artery Secondary pulmonary arterial hypertension Cognitive impairment B12 deficiency Chronic kidney disease, stage IV (severe) Right renal mass Seasonal allergies (Chronic) Hyperlipidemia (Chronic) GERD (gastroesophageal reflux disease) (Chronic) Hypertension (Chronic) Recurrent transitional cell carcinoma of bladder (Chronic 2010) Vitamin D deficiency (Chronic) Pulmonary nodule (Chronic) PAD (peripheral artery disease) (Chronic) COPD (chronic obstructive pulmonary disease) (Chronic) Fung's esophagus (Chronic) Lumbar stenosis with neurogenic claudication (Chronic) Medical History Sinus bradycardia per chart review, baseline HR 55-65; pt is on BB 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 Momin; baseline creat 1.5-1.7 Right renal mass 1cm right renal mass per 03/2022 CT; following with urology Aortoiliac occlusive disease s/p b/l common iliac artery stenting and R external iliac artery stent 2017. Per Vascular note, R common iliac and external iliac artery stents occluded in postop period following L nephrectomy. Vascular observing at this time; pt asymptomatic Cognitive impairment Carotid artery stenosis B/L Pulmonary hypertension Recurrent transitional cell carcinoma of bladder PAD (peripheral artery disease) Lumbar stenosis without neurogenic claudication Hypertension Hyperlipidemia GERD (gastroesophageal reflux disease) COPD (chronic obstructive pulmonary disease) History of transitional cell carcinoma of kidney s/p left nephrectomy 2018 Surgical History Hx of hemorrhoidectomy History of nephrectomy, left 02/21/18 - Glidescope #3, ETT #7.5, HiLo Oral, Grade 1 View S/P insertion of iliac artery stent bilateral, 2016, prior to kidney removal. Per Vascular note, R common iliac and external iliac artery stents occluded in postop period following L nephrectomy H/O transurethral destruction of bladder lesion History of lumbosacral spine surgery "many years ago," lower back History of bronchoscopy duplicate History of colonoscopy History of esophagogastroduodenoscopy (EGD) S/P bronchoscopy with biopsy 1. Endobronchial ultrasound with biopsy. 2. Electromagnetic navigational bronchoscopy with washings. Dr. Brambila 11-08-18 History of cardiac cath pt denies History of difficult intubation left hand assisted nephrectomy: 02/21/18: Grade 1 view, Glidescope #3, ETT 7.5 at [facility] H/O cataract extraction rt/lt History of ureter stent left>removed History of tonsillectomy Hx of cystoscopy Hx of hysterectomy BSO Family History Aunt Family history of diabetes mellitus Mother Breast cancer Father History of kidney cancer Other Cancer Hypertension Lung disease No family history of adverse response to anesthesia Denies family history of Ovarian cancer Prostate cancer Myocardial infarction Colorectal cancer Social History Smoking Status: Former smoker Tobacco Type: Cigarettes Cigarettes Per Day: 20; Smoking End Date: 2008; Second Hand Exposure: No; Do You Dip or Chew Tobacco: No; Tobacco Cessation Education Requested by Patient: No Hx Alcohol Use: No Hx Substance Use: No Preferred Language: Portuguese Communication Ability: Effective Visual Impairment: No Limitations Operations Administrative Assistant Required: No Beliefs That Will Affect Care: None marital status: Current Living Situation: Spouse current occupational status: retired Other Information That Helps Us Care for You: No Feels Safe at Home: Yes Safety Concerns: Feels Safe At This Time Childhood Exposure to Second-Hand Smoke: Yes Diet: regular caffeine: Yes Physical Activity Frequency: Does not Exercise Seatbelt Use: always Sunscreen Use: Yes Assistive Devices: Denture - Upper, Denture - Lower and Glasses Assistive Devices Comment: partial dentures upper and lower/will leave home DOS Review of Systems All systems reviewed & are unremarkable except as noted in HPI & below Physical Exam Physical Exam: Constitutional: In general patient is a healthy-appearing well-nourished well- developed elderly female in no distress. She is alert and oriented without any focal deficits, although is able to verbalize the month but not the date. Her carotids do not demonstrate a bruit, her lungs are decreased throughout, her heart is regular, her abdomen is soft nontender with normoactive bowel sounds in all 4 quadrants. Her brachial and radial pulses are +2. Her left femoral pulse is +3, her right femoral pulse is nonpalpable. Her bilateral DP pulses are +1, her toes demonstrate brisk capillary refill. Bilateral PT pulses are nonpalpable. There is no sign of distal ischemia. Neuro exam is within normal limits. Results & Data Vital Signs (Past 12 Hours) Vital Signs Temp Pulse Resp BP BP Pulse Ox O2 Del Method 12/26/23 07:04 36.5 C 57 L 22 135/72 201/61 H 96 Room Air Code Status & VTE Plan VTE Prophylaxis Plan VTE Prophylaxis will be ordered: Yes
[2023-12-26] MEDS ORDERED: fentaNYL citrate PF 100 MCG/2 ML VIAL IV PRN (07:47)
[2023-12-26] MEDS ORDERED: ATROPINE SULFATE 0.1 MG/ML 10ML SYR IV PRN (07:47)
[2023-12-26] MEDS ORDERED: ePHEDrine sulfate 50 MG/ML AMP IV PRN (07:47)
[2023-12-26] MEDS ORDERED: ONDANSETRON INJ 2 MG/ML 2 ML VIAL IV PRN ×2 (07:47→15:19)
[2023-12-26] MEDS ORDERED: PROMETHAZINE HCL 6.25 MG in SODIUM CHLORIDE 0.9% 50 ML IV PRN (07:47)
[2023-12-26] MEDS ORDERED: NALOXONE HCL 0.4 MG/1 ML VIAL/CARP IV PRN (07:47)
[2023-12-26] MEDS: CLINDAMYCIN/D5W 900 MG/50 ML BAG IV SCH (08:00)
[2023-12-26] MEDS ORDERED: HEPARIN SOD (PORCINE) 1000 UNIT/ML ONE (10:04)
[2023-12-26] MEDS ORDERED: PHENYLEPHRINE HCL 10 MG/ML VIAL ONE (10:04)
[2023-12-26] MEDS: THROMBIN FOR SOLN 20000 UNIT KIT ONE (10:56)
[2023-12-26] MEDS: LIDOCAINE 1% LOCAL 20 ML VIAL ONE (10:56)
[2023-12-26] MEDS: HEPARIN (PORCINE) 1000 UNIT/ML 10 ML (CATH LAB USE ONLY) ONE (10:57)
[2023-12-26] MEDS: GELATIN SPONGE SZ 100 ONE (10:58)
[2023-12-26] MEDS: ceFAZolin 330 MG/ML 1 GM VIAL ONE (10:58)
[2023-12-26] MEDS ORDERED: NITROGLYCERIN 5 MG/ML 10 ML VIAL ONE (11:02)
--- NOTE | 2023-12-26 11:12 | Post Operative Brief Note ---
Immediate Post Op Note Date of Surgery December 26, 2023 Pre & Post Diagnosis Operation Date: 12/26/23 08:00 Pre-Op Diagnosis: Bilateral Carotid Artery Stenosis Post-Op Diagnosis: Bilateral Carotid Artery Stenosis I identified the patient and participated in the time-out.: Yes Procedure Operation Date: 12/26/23 08:00 Actual Procedures p Right Carotid Endarterectomy(Right) with bovine patch - Weston Salamanca MD Surgeon Weston Salamanca MD Electric Organ Inspector And Repairer MD India L.Minarchick,PAC Estimated Blood Loss 50 Findings Consistent with Post-Op Diagnosis Anesthesia Type General Complications none Disposition Accompanied Patient To Recovery: No Disposition: Recovery Room
--- NOTE | 2023-12-26 11:18 | Operative Report ---
Post Operative Report Pre & Post Diagnosis Operation Date: 12/26/23 08:00 Pre-Op Diagnosis: Severe right carotid artery stenosis Post-Op Diagnosis: Severe right carotid artery stenosis I identified the patient and participated in the time-out.: Yes Procedure Operation Date: 12/26/23 08:00 Right carotid endarterectomy with bovine pericardial patch Surgeon Weston Salamanca MD Grievance Coordinator Lorna Leach MD; Jamilha Valdez PA-C Estimated Blood Loss 50 Findings See Below Right common carotid and internal carotid arteries had severe stenosis. Specimens Right carotid artery plaque Complications None Disposition Accompanied Patient To Recovery: Yes Indications Severe right carotid artery stenosis Description of Procedure The patient was taken to the operating room and placed in supine position. After general anesthesia was accomplished the right-side of the neck was prepped and draped in a sterile manner. A longitudinal neck incision was then made cou rsing along the medial border of the sternocleidomastoid muscle. The incision was taken down through the platysmal layer. The facial vein was identified, ligated, and divided. Multiple other venous collaterals were divided using 2-0 silk ties. The common carotid artery was then seen. It was dissected free under direct visualization of the vagus nerve posterior to it. The dissection was carried upward until the external carotid artery and superior thyroid artery was seen. The superior thyroid artery was crossing directly over the bifurcation and was ligated with a 2-0 silk tie. The external carotid was mobilized laterally with a red rubber vessel loop. Next the dissection was carried up along the internal carotid artery. This was carried upward to beyond the area of narrowing. The hypoglossal nerve was seen and preserved. The patient was heparinized and an ACT was obtained to ensure adequate goal. After adequate heparinization was accomplished, the internal, external, and common carotid arteries were clamped. A longitudinal arteriotomy was started on the common carotid artery and extended upward along the internal carotid artery to a point beyond the area of narrowing. There was calcified plaque of the internal carotid artery origin causing approximately 80-90% narrowing. A 3-5mm external Sundt shunt was then placed in the internal, followed by the common carotid artery and held in place with Mode clamps. There was good back bleeding seen from the internal carotid artery. The endarterectomy was then started in the appropriate plane on the common carotid artery. This was carried upward and the external carotid plaque was removed with a tonsil at the ostium. The endarterectomy was then carried up along the internal carotid artery and the plaque divided with Fernando scissors, given there was no area of tapered narrowing visualized. The proximal plaque was tacked down using an interrupted 7-0 stitch laterally. Heparinized saline was used to flush the common and internal carotid arteries after endarterectomy and no further areas of loose plaque, flaps or debris were seen. The endarterectomy was then carried down further on the common carotid artery. At end of the arteriotomy, the plaque was then transected. There was no proximal flap seen. The arteriotomy was then closed with a bovine pericardial patch using a running 6-0 Prolene suture. We started the patch at the internal carotid artery to ensure that we could visualize the tacked plaque entirely. Prior to completing the closure, the shunt was removed and the internal and common carotid arteries were reclamped. Backbleeding and forward bleeding was allowed to occur. The flow surface was irrigated with heparinized saline. The final sutures were then placed and the running suture tied. Clamps were then removed off the external and common carotid arteries. The clamp was then removed from the internal carotid artery. Good distal flow was seen. There were two areas that had pulsatile bleeding along the medial border of the patch, requiring an interrupted 7-0 stitch. Adequate hemostasis was then obtained. Thrombin soaked gelfoam was applied on top of the carotid artery and thrombin soaked gauze placed over it. After removal of these, the wound bed was irrigated with antibiotic solution and remained hemostatic. The carotid sheath was re- approximated with interrupted 3-0 Vicryl. The wound was then closed with a running 3-0 Vicryl suture for the platysmal layer and a 4-0 subcuticular Vicryl suture for the skin edges. Dermabond was used for dressing. The patient tolerated the procedure well. Dr Salamanca was present and participated in all critical portions of the procedure. I attest to the content of the Intraoperative Record and any orders documented therein. Any exceptions are noted below.
[2023-12-26] MEDS: LABETALOL HCL IV 5 MG/ML 20ML IV PRN (12:38)
[2023-12-26] MEDS: NITROPRUSSIDE SODIUM 50 MG in DEXTROSE 5% 500 ML IV PRN (13:30)
--- NOTE | 2023-12-26 14:08 | Anesthesiology Progress Note ---
Date of Service December 26, 2023 Anesthesia Post Procedure Vital Signs Vital Signs: Temp Pulse Pulse Resp BP BP BP 12/26/23 14:00 70 20 99/75 L 12/26/23 13:50 82 21 109/62 12/26/23 13:40 76 16 109/62 12/26/23 13:30 71 22 117/80 12/26/23 13:20 72 16 135/62 12/26/23 13:10 73 18 118/91 12/26/23 13:05 71 18 124/66 12/26/23 13:00 69 16 108/73 12/26/23 12:57 69 180/63 H 12/26/23 12:55 71 19 132/72 12/26/23 12:50 71 21 122/66 12/26/23 12:48 70 186/67 H 12/26/23 12:40 71 15 116/91 12/26/23 12:38 72 195/68 H 12/26/23 12:30 71 16 129/84 12/26/23 12:20 69 18 124/82 12/26/23 12:10 69 20 144/68 H 12/26/23 12:00 67 20 147/72 H 12/26/23 11:50 68 22 133/79 12/26/23 11:44 36.2 C L 68 16 128/71 12/26/23 07:04 36.5 C 57 L 22 135/72 201/61 H BP Pulse Ox O2 Del Method O2 Flow Rate 12/26/23 14:00 146/52 H 95 Nasal Cannula 12/26/23 13:50 160/56 H 91 Nasal Cannula 12/26/23 13:40 139/53 L 90 Nasal Cannula 12/26/23 13:30 177/62 H 93 Nasal Cannula 3 12/26/23 13:20 181/64 H 94 Nasal Cannula 3 12/26/23 13:10 180/65 H 95 Nasal Cannula 12/26/23 13:05 166/58 H 94 Nasal Cannula 12/26/23 13:00 161/55 H 95 Nasal Cannula 3 12/26/23 12:57 12/26/23 12:55 176/62 H 94 Nasal Cannula 3 12/26/23 12:50 171/59 H 94 Nasal Cannula 3 12/26/23 12:48 12/26/23 12:40 181/63 H 95 Nasal Cannula 12/26/23 12:38 12/26/23 12:30 197/67 H 95 Nasal Cannula 12/26/23 12:20 195/68 H 97 Nasal Cannula 12/26/23 12:10 193/67 H 97 Nasal Cannula 12/26/23 12:00 202/71 H 98 Nasal Cannula 12/26/23 11:50 202/71 H 98 Nasal Cannula 12/26/23 11:44 190/67 H 99 Nasal Cannula 12/26/23 07:04 96 Room Air Transfer of Care Handoff Completed per policy Notes Mental Status: alert / awake / arousable Patient Amnestic to Procedure: Yes Nausea / Vomiting: adequately controlled Pain: adequately controlled Airway Patency, RR, SpO2: stable & adequate BP & HR: stable & adequate Hydration State: stable & adequate Anesthetic Complications: no major complications apparent
[2023-12-26] MEDS ORDERED: STAT IV Infusion **Titration per Protocol STA (15:19)
[2023-12-26] MEDS ORDERED: PHENYLEPHRINE/NSS 25 MG/250 ML BAG IV PRN (15:19)
[2023-12-26] MEDS ORDERED: MoRPHine SULFATE 4 MG/ML 1 ML CARP\\VIAL IV PRN (15:19)
[2023-12-26] MEDS ORDERED: ALBUTEROL HFA 8 GM INHALER INH PRN (15:19)
[2023-12-26] MEDS: BUPIVACAINE/EPINEPHRINE 0.5% MPF 1:200,000 30 ML VIAL ONE (15:21)
[2023-12-26] MEDS: CLINDAMYCIN/D5W 600 MG/50 ML BAG IV SCH (15:59)
[2023-12-26] MEDS: oxyCODONE/ACETAMINOPHEN 5mg/325mg TAB PO PRN (17:25)
--- NOTE | 2023-12-26 17:37 | Critical Care Consultation ---
Date of Consultation December 26, 2023 Assessment & Plan (1) Stenosis of right carotid artery: (2) Cognitive impairment: (3) Chronic kidney disease, stage IV (severe): (4) GERD (gastroesophageal reflux disease): (5) Hypertension: (6) PAD (peripheral artery disease): (7) COPD (chronic obstructive pulmonary disease): Plan Reason Critically Ill: 88 YOF presents to ICU for postoperative monitoring following RIGHT CEA performed by Vascular Surgery- she is on NITROPRUSSIDE for elevated SBP - goal <160mmHG Neuro - Carotid Artery Stenosis CAM ICU: Negative - POD #0 from RIGHT CEA- noted with small right facial droop, otherwise no neurological deficits - Pain control per primary surgery- tiered approach already on board with rescue Narcan Available - Postoperative ABX per primary surgery team - Diet per primary surgery team - Wound and incisions per primary surgery team - BP goal <160- Vasodilators per primary surgery team - follow neurological assessments - Antiplatlet medications per primary surgery team- ASA currently with reported dyspnea side effects from Plavix and Brillinta Cardiac -HTN, HLD, PAD - Continue statin - Continue Atenolol - Follow NV/CV exams of extremities Respiratory - COPD - Well controlled per patient, with infrequent use of her HOLLY - Continue Spiriva and HOLLY - on room air GI - GERD - Continue PPI RENAL/LYTES - CKD IV in setting of left nephrectomy - renal dose medications as appropriate - avoid further nephrotoxic medications as able - ICU electrolyte protocol - NO acute needs - remove shepherd when appropriate ENDO - No acute needs - ICU hyperglycemic protocol HEME - No acute needs - Follow HGB/HCT transfuse if indicated ID - NO acute concerns for infective causes at this time LINES/IV ACCESS - PIV Continue use of thes lines DVT PROPHYLAXIS - SCDS, ASA, DISPO: ICU until hemodynamics proven stable I have personally spent 30 minutes of time in the direct management of this patient. This is a life/limb threatening event. This includes time spent evaluating patient, direct bedside care, chart review, placing orders, interpretation of diagnostic studies, discussion with consultants, patient, and family members, as well as other required patient management activities. This time is exclusive of all separately billable procedures, and teaching time and separate from and in addition to any other critical care service time. Thank you for allowing us to participate in the care of this patient. Please refer to my attending physician's documentation for any further recommendations. History of Present Illness Reason for Consultation: S/p RIGHT Carotid Endarterectomy Requesting Physician: Weston Salamanca MD Attending Physician: Weston Salamanca MD History of Present Illness 88 YOF with medical history of: Carotid Artery Stenosis (POD #0 sp/ righ CEA), CKD IV, HLD, HTN, GERD, renal mass with recurrent bladder cancer with LEFT nephrectomy, , PAD- previous bilateral illiac stents, COPD, cognitive impairment. Patient is POD #0 from RIGHT CEA, CEA by chart review was performed secondary to patient having reported history of dyspnea when being on Plavix and Brilinta with concurrent EMD visits to collaborate the above. Patient underwent intubation and General Anesthesia per record review, required some ephedrine during case, EBL was reported as 50cc. Reported extended PACU time secondary to elevated blood pressures, now requiring Nitroprusside infusion under care of vascular surgery. Patient evaluated in her room in the ICU upon shift change. She is awake, pain is controlled, on room air without difficulty breathing. Updated by Nursing at bedside. Patient is FULL CODE Allergies Allergy/AdvReac Type Severity Reaction Status Date / Time losartan Allergy Severe DYSPNEA Verified 12/26/23 06:58 nitrofurantoin Allergy Severe DYSPNEA Verified 12/26/23 06:58 terazosin Allergy Severe DYSPNEA Verified 12/26/23 06:58 amoxicillin Allergy Intermediate HIVES Verified 12/26/23 06:58 fluconazole Allergy Intermediate RASH, HIVES Verified 12/26/23 06:58 levofloxacin Allergy Intermediate DYSPNEA Verified 12/26/23 06:58 lisinopril Allergy Intermediate COUGH, Verified 12/26/23 06:58 DYSPNEA nifedipine Allergy Intermediate HIVES Verified 12/26/23 06:58 phenazopyridine Allergy Intermediate HIVES Verified 12/26/23 06:58 sulfamethoxazole Allergy Intermediate HIVES Verified 12/26/23 06:58 trimethoprim Allergy Intermediate HIVES Verified 12/19/23 13:15 clopidogrel [From Plavix] AdvReac Intermediate SOB Verified 12/26/23 07:37 ticagrelor [From Brilinta] AdvReac Intermediate SOB Verified 12/26/23 07:37 Home Medications Medication Instructions Recorded Confirmed Type cholecalciferol (vitamin D3) 25 1,000 unit PO QPM 11/07/18 12/26/23 History mcg (1,000 unit) capsule (Vitamin D3) magnesium 250 mg tablet 250 mg PO QPM 11/26/19 12/26/23 History albuterol sulfate 90 mcg/actuation 1 - 2 puff inhalation Q4H PRN 01/17/23 12/26/23 Rx aerosol inhaler (Ventolin HFA) shortness of breath or wheezing #6.7 grams potassium chloride 10 mEq 10 meq PO QAM #90 tabs 06/05/23 12/26/23 Rx tablet,extended release aspirin 81 mg tablet,delayed 81 mg PO QAM 10/01/23 12/26/23 History release atenolol 25 mg tablet 25 mg PO QAM #90 tabs 10/01/23 12/26/23 Rx tiotropium bromide 18 mcg capsule 1 cap inhalation QAM #90 10/01/23 12/19/23 Rx with inhalation device (Spiriva inhalations with HandiHaler) hydrochlorothiazide 25 mg tablet 25 mg PO QAM 12/19/23 12/26/23 History rosuvastatin 20 mg tablet 20 mg PO QAM 12/19/23 12/26/23 History Patient History Medical History Sinus bradycardia per chart review, baseline HR 55-65; pt is on BB 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 Momin; baseline creat 1.5-1.7 Right renal mass 1cm right renal mass per 03/2022 CT; following with urology Aortoiliac occlusive disease s/p b/l common iliac artery stenting and R external iliac artery stent 2016. Per Vascular note, R common iliac and external iliac artery stents occluded in postop period following L nephrectomy. 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 Per Vascular note, R common iliac and external iliac artery stents occluded in postop period following L nephrectomy H/O transurethral destruction of bladder lesion History of lumbosacral spine surgery "many years ago," lower back History of bronchoscopy duplicate History of colonoscopy History of esophagogastroduodenoscopy (EGD) S/P bronchoscopy with biopsy 1. Endobronchial ultrasound with biopsy. 2. Electromagnetic navigational bronchoscopy with washings. Dr. Brambila 11-08-18 History of cardiac cath pt denies History of difficult intubation left hand assisted nephrectomy: 02/21/18: Grade 1 view, Glidescope #3, ETT 7.5 at [facility] H/O cataract extraction rt/lt History of ureter stent left>removed History of tonsillectomy Hx of cystoscopy Hx of hysterectomy BSO Family History Aunt Family history of diabetes mellitus Mother Breast cancer Father History of kidney cancer Other Cancer Hypertension Lung disease No family history of adverse response to anesthesia Denies family history of Ovarian cancer Prostate cancer Myocardial infarction Colorectal cancer Social History Smoking Status: Former smoker Tobacco Type: Cigarettes Cigarettes Per Day: 20; Smoking End Date: 2008; Second Hand Exposure: No; Do You Dip or Chew Tobacco: No; Tobacco Cessation Education Requested by Patient: No Hx Alcohol Use: No Hx Substance Use: No Preferred Language: Irish Communication Ability: Effective Visual Impairment: No Limitations 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 Structures Required: No Beliefs That Will Affect Care: None marital status: Current Living Situation: Spouse current occupational status: retired Other Information That Helps Us Care for You: No Feels Safe at Home: Yes Safety Concerns: Feels Safe At This Time Childhood Exposure to Second-Hand Smoke: Yes Diet: regular caffeine: Yes Physical Activity Frequency: Does not Exercise Seatbelt Use: always Sunscreen Use: Yes Assistive Devices: Denture - Upper, Denture - Lower and Glasses Assistive Devices Comment: partial dentures upper and lower/will leave home DOS Review of Systems Review of Systems: REVIEW OF SYSTEMS: Constitutional: No fever, sweats or chills Eyes: (+) wears glasses, No diplopia, no worsening or blurred vision ENT: normal hearing, no trouble swallowing Respiratory:(+) dyspnea on exertion previous smoker, No cough, sputum, Cardiovascular: No chest pain, tightness or palpitations Abdomen: No pain, nausea, vomiting, diarrhea or constipation Musculoskeletal: No joint pain, calf pain, swelling Neurologic: No weakness, numbness/tingling, or balance problems Psychiatric: No anxiety or depression Skin: No rash or itch Physical Exam Physical Exam: PHYSICAL EXAM: General: awake, alert, no apparent distress Head: Normocephalic, atraumatic ENT: PERRL, EOMI, no pharyngeal exudate, mucous membranes moist Neuro: AAO x 3, speech clear and appropriate, mild right facial droop, tongue midline, cheeks puff out equally, sensation intact to bilateral face, strength intact bilaterally 5/5, sensation intact and equal all extremities and dermatomes, no pronator drift Chest: equal rise and fall of the chest, no accessory muscle use, no heaves or thrills, Clear to auscultation, on room air, Cardiac: Regular rate and rhythm, telemetry reviewed- NSR no ectopy, skin warm dry, cap refill <3 seconds, peripheral pulses +2 no JVD, no murmur, no edema GI: NABS x 4 quadrants, soft, nontender to palpation, no rebound, guarding or tenderness : Spontaneously voiding, no pain, no CVA tenderness, Psych: Normal mood and affect Skin: RIGHT neck incision intact with Dermabond, small amount of ecchymosis noted, no hematoma noted. Results & Data Results & Data Vital Signs (Past 12 Hours) Vital Signs Temp Pulse Pulse Resp BP BP BP 12/26/23 16:32 99/62 L 12/26/23 16:27 67 16 12/26/23 16:19 36.4 C L 12/26/23 16:03 67 21 12/26/23 16:00 126/68 12/26/23 15:21 70 23 12/26/23 15:18 69 20 12/26/23 15:15 100/44 L 12/26/23 15:15 100/44 L 12/26/23 15:12 70 14 12/26/23 14:15 36.2 C L 70 16 12/26/23 14:00 70 20 99/75 L 12/26/23 13:50 82 21 109/62 12/26/23 13:40 76 16 109/62 12/26/23 13:30 71 22 117/80 12/26/23 13:20 72 16 135/62 12/26/23 13:10 73 18 118/91 12/26/23 13:05 71 18 124/66 12/26/23 13:00 69 16 108/73 12/26/23 12:57 69 180/63 H 12/26/23 12:55 71 19 132/72 12/26/23 12:50 71 21 122/66 12/26/23 12:48 70 186/67 H 12/26/23 12:40 71 15 116/91 12/26/23 12:38 72 195/68 H 12/26/23 12:30 71 16 129/84 12/26/23 12:20 69 18 124/82 12/26/23 12:10 69 20 144/68 H 12/26/23 12:00 67 20 147/72 H 12/26/23 11:50 68 22 133/79 12/26/23 11:44 36.2 C L 68 16 128/71 12/26/23 07:04 36.5 C 57 L 22 135/72 201/61 H BP Pulse Ox O2 Del Method O2 Flow Rate 12/26/23 16:32 12/26/23 16:27 93 12/26/23 16:19 12/26/23 16:03 93 12/26/23 16:00 12/26/23 15:21 89 L 12/26/23 15:18 88 L 12/26/23 15:15 12/26/23 15:15 12/26/23 15:12 91 12/26/23 14:15 138/49 L 91 Nasal Cannula 3 12/26/23 14:00 146/52 H 95 Nasal Cannula 12/26/23 13:50 160/56 H 91 Nasal Cannula 12/26/23 13:40 139/53 L 90 Nasal Cannula 12/26/23 13:30 177/62 H 93 Nasal Cannula 3 12/26/23 13:20 181/64 H 94 Nasal Cannula 3 12/26/23 13:10 180/65 H 95 Nasal Cannula 3 12/26/23 13:05 166/58 H 94 Nasal Cannula 3 12/26/23 13:00 161/55 H 95 Nasal Cannula 3 12/26/23 12:57 12/26/23 12:55 176/62 H 94 Nasal Cannula 3 12/26/23 12:50 171/59 H 94 Nasal Cannula 3 12/26/23 12:48 12/26/23 12:40 181/63 H 95 Nasal Cannula 3 12/26/23 12:38 12/26/23 12:30 197/67 H 95 Nasal Cannula 3 12/26/23 12:20 195/68 H 97 Nasal Cannula 3 12/26/23 12:10 193/67 H 97 Nasal Cannula 3 12/26/23 12:00 202/71 H 98 Nasal Cannula 3 12/26/23 11:50 202/71 H 98 Nasal Cannula 3 12/26/23 11:44 190/67 H 99 Nasal Cannula 3 12/26/23 07:04 96 Room Air Laboratory Results Abnormal lab results 12/26/23 12/26/23 12/26/23 Range/Units 06:40 09:29 10:27 Activ Coag Time Kaolin 214 H 189 H (94-140) SECONDS BUN 37 H (6-23) mg/dl Creatinine 1.83 H (0.6-1.2) mg/dl BUN/Creatinine Ratio 20.2 H (10-20) Glucose 103 H (70-99(Fasting)) mg/dl POC Glucose (70-99) mg/dl 12/26/23 Range/Units 15:05 Activ Coag Time Kaolin (94-140) SECONDS BUN (6-23) mg/dl Creatinine (0.6-1.2) mg/dl BUN/Creatinine Ratio (10-20) Glucose (70-99(Fasting)) mg/dl POC Glucose 142 H (70-99) mg/dl Medications Administered Sodium Chloride (Nss) 1,000 mls @ 15 mls/hr IV .Q24H OZZY Stop: 12/27/23 05:59 Last Infusion: 12/26/23 07:58 Dose: Infused Documented By: Admin: 12/26/23 07:25 Dose: 15 mls/hr Documented By: HD Sodium Nitroprusside 50 mg/ (Dextrose) 502 mls @ 9.006 mls/hr IV .Q24H PRN; Protocol PRN Reason: BP not controlled by NTG-IV Stop: 01/25/24 12:11 Last Titration: 12/26/23 15:22 Dose: 0.25 mcg/kg/min, 9 mls/hr Documented By: DUSTIN Co-signed By: MO Admin: 12/26/23 13:56 Dose: 0.25 mcg/kg/min, 9 mls/hr Documented By: DORENE Co-signed By: KAREN Titration: 12/26/23 13:56 Dose: Infused Documented By: DORENE Co-signed By: KAREN Admin: 12/26/23 13:54 Dose: 0.5 mcg/kg/min, 17.9 mls/hr Documented By: DORENE Co-signed By: KAREN Titration: 12/26/23 13:40 Dose: Infused Documented By: ODRENE Co-signed By: KAREN Admin: 12/26/23 13:30 Dose: 0.5 mcg/kg/min, 17.9 mls/hr Documented By: KAREN Co-signed By: DORENE Clindamycin Phosphate (Cleocin/D5w) 600 mg in 50 mls @ 100 mls/hr IV Q8H [facility] Stop: 12/27/23 00:29 Last Infusion: 12/26/23 16:34 Dose: Infused Documented By: Admin: 12/26/23 15:59 Dose: 100 mls/hr Documented By: DUSTIN Oxycodone/Acetaminophen (Oxycodone/Acetaminophen 5mg/325mg Tab) 1 - 2 tab PO Q4H PRN PRN Reason: Pain (Scale 3,4,5,6) Stop: 01/09/24 15:18 Last Admin: 12/26/23 17:25 Dose: 1 tab Documented By: DUSTIN Discontinued Medications Bupivacaine HCl/Epinephrine Bitart (Bupivacaine/Epinephrine 0.5% Mpf 1:200,000 30 Ml Vial) Confirm Administered Dose 30 ml .ROUTE .STK-MED ONE Stop: 12/26/23 07:00 Last Admin: 12/26/23 15:21 Dose: Not Given Documented By: DUSTIN Cefazolin Sodium (Cefazolin 330 Mg/Ml 1 Gm Vial) Confirm Administered Dose 990 mg .ROUTE .STK-MED ONE Stop: 12/26/23 07:01 Last Admin: 12/26/23 10:58 Dose: 100 mg Documented By: VANESSA Gelatin (Gelatin Sponge Sz 100) Confirm Administered Dose 1 each .ROUTE .STK-MED ONE Stop: 12/26/23 07:01 Last Admin: 12/26/23 10:58 Dose: 1 each Documented By: VANESSA Heparin Sodium (Porcine) (Heparin (Porcine) 1000 Unit/Ml 10 Ml ([place] Use Only)) Confirm Administered Dose 10,000 units .ROUTE .STK-MED ONE Stop: 12/26/23 07:00 Last Admin: 12/26/23 10:57 Dose: 30 units Documented By: VANESSA Lactated Ringer's (Lr) 1,000 mls @ 80 mls/hr IV .[id number] [facility] Stop: 12/26/23 18:29 Last Admin: 12/26/23 07:26 Dose: Not Given Documented By: LOUIS Clindamycin Phosphate (Cleocin/D5w) 900 mg in 50 mls @ 100 mls/hr IV PREOP OZZY Stop: 12/26/23 18:00 Last Infusion: 12/26/23 15:22 Dose: Infused Documented By: Admin: 12/26/23 08:00 Dose: 100 mls/hr Documented By: [id number] Labetalol HCl (Labetalol Hcl Iv 5 Mg/Ml 20ml) 5 mg IV Q5M PRN PRN Reason: PACU Use-SBP>160 or DBP>100 Stop: 12/26/23 15:47 Last Admin: 12/26/23 12:57 Dose: 5 mg Documented By: Admin: 12/26/23 12:48 Dose: 5 mg Documented By: Admin: 12/26/23 12:38 Dose: 5 mg Documented By: KAREN Lidocaine HCl (Lidocaine 1% Local 20 Ml Vial) Confirm Administered Dose 1 ml .ROUTE .STK-MED ONE Stop: 12/26/23 07:01 Last Admin: 12/26/23 10:56 Dose: Not Given Documented By: CC Thrombin (Thrombin For Soln 01528 Unit Kit) Confirm Administered Dose 20,000 units .ROUTE .STK-MED ONE Stop: 12/26/23 07:01 Last Admin: 12/26/23 10:56 Dose: 20,000 units Documented By: VANESSA Coding Level of Care Code 34577 IN/OBS CONSULT LVL 2,35M Diagnoses Stenosis of right carotid artery I65.21 Cognitive impairment R41.89 Chronic kidney disease, stage IV (severe) N18.4 GERD (gastroesophageal reflux disease) K21.9 Hypertension I10 PAD (peripheral artery disease) I73.9 Chronic obstructive pulmonary disease, unspecified COPD type J44.9 COPD type: unspecified COPD (7) COPD (chronic obstructive pulmonary disease) COPD type: unspecified COPD Qualified Code(s): J44.9 - Chronic obstructive pulmonary disease, unspecified
[2023-12-26] MEDS: MAGNESIUM OXIDE 400 MG TAB PO SCH (20:12)
[2023-12-26] MEDS: CHOLECALCIFEROL 25 MCG (1000 UNITS) TAB PO SCH (20:12)
[2023-12-27] MEDS: ROSUVASTATIN CALCIUM 20 MG TAB PO SCH (08:05)
[2023-12-27] MEDS: ATENOLOL 25 MG TABLET PO SCH (08:05)
[2023-12-27] MEDS: hydroCHLOROthiazide 25 MG TAB PO SCH (08:05)
[2023-12-27] MEDS: ASPIRIN 81 MG ECTAB PO SCH (08:05)
[2023-12-27] MEDS: UMECLIDINIUM BROMIDE 62.5MCG/BLISTER 7 PUFFS/INHALER INH SCH (08:06)
[2023-12-27] MEDS: POTASSIUM CHLORIDE 10 MEQ TABCR PO SCH (08:08)
[2023-12-27 08:51] VITALS: TEMP 97.9
[2023-12-27 12:29] VITALS: PULSE 62; RESP 18; O2SAT 96
--- NOTE | 2023-12-27 13:55 | Surgery Progress Note ---
Date of Service December 27, 2023 Assessment & Plan (1) Stenosis of right carotid artery: Plan: This patient is postoperative day 1 from a right carotid endarterectomy. She is doing well without any neurological deficits. She has an uncomplicated postoperative course. She is awake alert and ambulating around the ring. She will be discharged today to self-care at home. Admission and Anticipated Discharge Date Admission Date: December 26, 2023 Subjective Patient has no complaints. She is eating without difficulty. She has no c omplaints of any focal deficits. Physical Exam Constitutional: WD/WN, vitals as above Neck: trachea midline Respiratory: normal respiratory effort; no respiratory distress Cardiovascular: Rate/Rhythm: regular rate and regular rhythm Skin: + incision (Dry and clean) Neurologic: CN's II-XI intact bilaterally and moves all extremities Psychiatric: A+Ox3, euthymic affect Results & Data Vital Signs (Past 12 Hours) Vital Signs Temp Pulse Pulse Resp BP Pulse Ox O2 Del Method 12/27/23 12:00 62 18 160/92 H 96 Room Air 12/27/23 11:06 60 16 12/27/23 10:09 61 18 12/27/23 09:06 71 20 12/27/23 08:55 12/27/23 08:06 71 16 12/27/23 08:00 66 12/27/23 08:00 36.6 C Nasal Cannula 12/27/23 07:00 68 15 98 12/27/23 06:00 65 17 89 L 12/27/23 05:24 67 17 90 12/27/23 04:45 36.4 C L 12/27/23 04:05 64 17 96 12/27/23 03:26 65 17 98 12/27/23 02:18 60 17 97 O2 Flow Rate 12/27/23 12:00 12/27/23 11:06 12/27/23 10:09 12/27/23 09:06 12/27/23 08:55 2 12/27/23 08:06 12/27/23 08:00 12/27/23 08:00 2 12/27/23 07:00 12/27/23 06:00 12/27/23 05:24 12/27/23 04:45 12/27/23 04:05 12/27/23 03:26 12/27/23 02:18
--- NOTE | 2023-12-27 13:59 | Discharge Summary ---
Date of Service December 27, 2023 Admission HPI Per Admitting Provider Patient is known for aortoiliac occlusive disease, having undergone a bilateral common iliac artery stenting and right external iliac artery stent placement back in 2017. She unfortunately occluded her right common iliac and external iliac artery stents in 2018 in the postop period after undergoing a left nephrectomy due to renal CA. Her right leg remains viable and she did not have significant symptoms, so no further intervention was recommended for the occlusion. She has been subsequently followed either every 6 months or annually for this problem, and has remained relatively asymptomatic and functional despite her right iliac artery occlusion. Patient is a very poor historian at this point, as her states that she has some mild dementia. She does state that she was complaining of some neck discomfort and went to the hospital, where she had a CT scan of her neck, and was advised that she has problems with the "veins in her neck." She denies any history of CVA in the past. She denies any recent symptoms of cerebrovascular insufficiency, including amaurosis, unilateral extremity weakness numbness or tingling, difficulty speaking or swallowing, facial droop, sudden onset of new confusion, or other complaints. She does state that she had to have her esophagus stretched a few weeks ago, and her states that the patient has had slowly progressing mild dementia for some time. She currently denies headache, fever, chest pain, shortness of breath, palpitations, abdominal pain, nausea, vomiting, rest pain, claudication, nonhealing wounds or ulcers, other complaints. In general she is a 88-year-old female who has a severe stenosis of her right internal carotid artery. We are planning on doing a TCAR procedure however she became short of breath both on Plavix and Brilinta. We therefore cannot do a TCAR and will need to do an endarterectomy. Admission Exam Per Admitting Provider Constitutional: In general patient is a healthy-appearing well-nourished well- developed elderly female in no distress. She is alert and oriented without any focal deficits, although is able to verbalize the month but not the date. Her carotids do not demonstrate a bruit, her lungs are decreased throughout, her heart is regular, her abdomen is soft nontender with normoactive bowel sounds in all 4 quadrants. Her brachial and radial pulses are +2. Her left femoral pulse is +3, her right femoral pulse is nonpalpable. Her bilateral DP pulses are +1, her toes demonstrate brisk capillary refill. Bilateral PT pulses are nonpalpable. There is no sign of distal ischemia. Neuro exam is within normal limits. Principal Diagnosis Right internal carotid artery stenosis Discharge Exam Constitutional: In general patient is a healthy-appearing well-nourished well- developed elderly female in no distress. She is alert and oriented without any focal deficits, although is able to verbalize the month but not the date. Her carotids do not demonstrate a bruit, her lungs are decreased throughout, her heart is regular, her abdomen is soft nontender with normoactive bowel sounds in all 4 quadrants. Her brachial and radial pulses are +2. Her left femoral pulse is +3, her right femoral pulse is nonpalpable. Her bilateral DP pulses are +1, her toes demonstrate brisk capillary refill. Bilateral PT pulses are nonpalpable. There is no sign of distal ischemia. Neuro exam is within normal limits. Constitutional WD/WN, vitals as above Neck trachea midline Respiratory normal respiratory effort; no respiratory distress Cardiovascular Rate/Rhythm: regular rate and regular rhythm Skin + incision (Dry and clean) Neurologic CN's II-XI intact bilaterally and moves all extremities Psychiatric A+Ox3, euthymic affect Discharge Data Allergies Allergy/AdvReac Type Severity Reaction Status Date / Time losartan Allergy Severe DYSPNEA Verified 12/26/23 06:58 nitrofurantoin Allergy Severe DYSPNEA Verified 12/26/23 06:58 terazosin Allergy Severe DYSPNEA Verified 12/26/23 06:58 amoxicillin Allergy Intermediate HIVES Verified 12/26/23 06:58 fluconazole Allergy Intermediate RASH, HIVES Verified 12/26/23 06:58 levofloxacin Allergy Intermediate DYSPNEA Verified 12/26/23 06:58 lisinopril Allergy Intermediate COUGH, Verified 12/26/23 06:58 DYSPNEA nifedipine Allergy Intermediate HIVES Verified 12/26/23 06:58 phenazopyridine Allergy Intermediate HIVES Verified 12/26/23 06:58 sulfamethoxazole Allergy Intermediate HIVES Verified 12/26/23 06:58 trimethoprim Allergy Intermediate HIVES Verified 12/19/23 13:15 clopidogrel [From Plavix] AdvReac Intermediate SOB Verified 12/26/23 07:37 ticagrelor [From Brilinta] AdvReac Intermediate SOB Verified 12/26/23 07:37 Consultations 12/26/23 15:19 Consult Textile Stylist Routine Procedures Performed Operation Date: 12/26/23 08:00 Actual Procedures p Right Carotid Endarterectomy(Right) - Weston Salamanca MD Hospital Course (1) Stenosis of right carotid artery: This patient is postoperative day 1 from a right carotid endarterectomy. She is doing well without any neurological deficits. She has an uncomplicated postoperative course. She is awake alert and ambulating around the ring. She will be discharged today to self-care at home. Total Time Total Time Spent Total Time Spent (In Minutes): 0 Discharge Plan Discharge Items Patient Disposition: Home - Self-Care Reason For Visit: Bilateral Carotid Artery Stenosis Discharge Diagnosis: Right internal carotid artery stenosis Activity: Per Instructions section Non-emergency contact: Surgeon Call non-emergency contact if: your temperature is above 101.5, your wound has increased redness, your wound has increased drainage and your wound pain has increased Follow-up/Referrals: Yenni Rodriguez MD [Primary Care Provider] - Diet: Heart Healthy Addtl Attending Provider Instructions: SPECIAL CARE INSTRUCTIONS: Medications: * Continue to take Aspirin, Plavix, and statin as directed. Incision Care: * You may shower, but do not rub incision. You may let the warm soapy water run over it. Be sure to dry the incision well after bathing. * Do not shave directly over the incision until it is healed. * DO NOT IMMERSE THE INCISION IN A TUB/POOL/etc. UNTIL HEALED. Restrictions: * Do not drive for at least one week or if you are still taking any narcotic pain medication. * Do not lift anything heavier than a gallon of milk for one week after going home. Possible Complications: * Numbness - It is normal to have some numbness around the incision. Numbness can extend beyond the incision to areas of the neck, ear and face. The numbness is due to bruising of nerves during the surgery and will gradually improve over a period of months. * Hoarseness/Difficulty Speaking and Swallowing - The bruising of nerves in the neck can also cause a hoarse voice, difficulty speaking or swallowing. This may improve over time, HOWEVER, if it continues for more than a few days please contact our office ([phone]). * Excessive Swelling - There will be some swelling immediately after surgery which usually resolves within one week. If you notice that the swelling is getting worse, notify your surgeon ([phone]). * Drainage/Bleeding - If there is any drainage or bleeding, it should be a very small amount (less than a teaspoon per day). If you have excessive bleeding or drainage from the incision, call your surgeon ([phone]) right away. ACTIVATION OF EMERGENCY MEDICAL SYSTEM: Call 911, immediately, if you experience any of the following: Warning Signs and Symptoms of Stroke: * Sudden numbness or weakness of the face, arm or leg, especially on one side of the body * Sudden confusion, trouble speaking or understanding * Sudden trouble seeing in one or both eyes * Sudden trouble walking, dizziness, loss of balance or coordination * Sudden severe headache with no cause Do not delay calling 911 if you experience any warning signs or symptoms of a stroke. Delay in seeking medical attention may affect what treatments can be given to you. Risk Factors for Stroke: You can reduce your chances of stroke by working with your medical provider to adopt a healthy lifestyle. Some specific ways to lower your chance of stroke are: * If you are a smoker, now is the time to stop smoking cigarettes * If you are diabetic, improve the control of your blood sugars * Avoid excessive amounts of alcohol * Control high blood pressure * Lose weight if you are overweight * Be sure to lead an active lifestyle * Eat a healthy diet low in salt, cholesterol and fat You should know about other risk factors for stroke that you are unable to control. These include: * Age 55 years or older * Male gender * Certain racial groups: , or / * Family History of Stroke, Mini stroke or Heart Attack * Sickle Cell Disease You will be receiving a call from the Vascular Surgery Nurse after you are discharged. FOLLOW UP VISIT: It is important for you to keep your follow up appointments with your medical provider. Keep any scheduled doctor appointments. Call [phone] to schedule a follow up appointment if one not already scheduled. Pending Studies at Discharge: No Stand-Alone Forms: My [facility] SocialGuide, Smoking Cessation Medications and DC Order Prescriptions: New oxycodone-acetaminophen [Percocet] 5-325 mg tablet 1 tab PO Q8H PRN (Reason: pain) Qty: 7 0RF Continued potassium chloride 10 mEq tablet extended release 10 meq PO QAM Qty: 90 3RF albuterol sulfate [Ventolin HFA] 90 mcg/actuation HFA aerosol inhaler 1 - 2 puff inhalation Q4H PRN (Reason: shortness of breath or wheezing) Qty: 6.7 5RF aspirin 81 mg tablet,delayed release (DR/EC) 81 mg PO QAM atenolol 25 mg tablet 25 mg PO QAM Qty: 90 3RF Rx Instructions: for blood pressure tiotropium bromide [Spiriva with HandiHaler] 18 mcg capsule, w/inhalation de vice 1 cap INHALATION QAM Qty: 90 1RF magnesium 250 mg Tablet 250 mg PO QPM cholecalciferol (vitamin D3) [Vitamin D3] 1,000 unit Capsule 1,000 unit PO QPM Patient Comments: takes only few times per week hydrochlorothiazide 25 mg tablet 25 mg PO QAM rosuvastatin 20 mg tablet 20 mg PO QAM Discharge Orders: Discharge Order (Routine); Ordered 12/27/23 Ordered By: Weston Salamanca Admission Data Admit Date/Time: 12/26/23 07:37 Attending Provider: Weston Salamanca Admit Provider: Weston Salamanca Primary Care Provider: Yenni Rodriguez Other Providers: Bi Quispe; Jeremy Aebrnathy; Sandor Harper; Mychal Bourgeois; Gonsalo Waggoner Muqueet; William Amaya; Eboni Guerra; Lorene Hawley; Bubba Unger; Dimas Sorto; Aleida Fowler
[2023-12-27 14:12] VITALS: BP 201/61
== END 2023-12-27 14:24 | disposition home or self-care (01) | DRG 38 ==
LOC: ASU 06:19 → 1E 07:37

== ENCOUNTER 2024-11-05 10:52 | Inpatient (IN) ==
[2024-11-05 11:18] LABS: Hematocrit (blood only) 44.2 % (37.0-47.0); Hemoglobin 13.9 g/dl (12.0-16.0); Immature Granulocytes # (auto) 0.03 K/uL (0.01-0.20); Immature Granulocytes % (auto) 0.4 %; Mean Corpuscular Hemoglobin 27.9 pg (25.0-34.0); Mean Corpuscular Volume 88.8 fL (80.0-100.0); Platelet Count 582 K/uL (130-400); RDW Standard Deviation 48.6 fL (36.4-46.3); Red Blood Count 4.98 M/uL (4.20-5.40); White Blood Count 8.41 K/ul (4.8-10.8)
[2024-11-05] MEDS: ONDANSETRON INJ 2 MG/ML 2 ML VIAL IV STA (11:33)
--- NOTE | 2024-11-05 11:38 | XRay Report ---
XR chest 1V portable CLINICAL HISTORY: Chest pain, nonspecific COMPARISON STUDY: 10/06/2024 FINDINGS: Single view portable chest demonstrates no evidence of pneumothorax or pleural effusion. Th ere is a small area of patchy increased density in the right midlung zone which could represent nonsp ecific atelectasis. Early infiltrate doubtful but difficult to completely exclude. Heart size and pul monary vascularity are unremarkable. IMPRESSION: Small airspace opacity right midlung zone of uncertain clinical significance. ACT 112: Negative or not required by law. Electronically signed by: Tiffany Black M.D. 11/05/2024 11:36 AM
[2024-11-05 11:45] LABS: Alanine Aminotransferase 19.0 U/L (7-52); Albumin Globulin Ratio 1.0 (0.9-2); Alkaline Phosphatase 71.0 U/L (34-104); Anion Gap 6.0 (3-11); Bilirubin,Total 0.5 mg/dl (0.2-1.0); Blood Urea Nitrogen 33.0 mg/dl (6-23); Calcium 9.4 mg/dl (8.6-10.3); Carbon Dioxide 31.0 mmol/L (21-32); Chloride 99.0 mmol/L (98-107); Creatinine Clr Calc Pharmacy 27.3 ml/min; Globulin 4.3 gm/dl (2.5-4.0); Glucose 111.0 mg/dl (70-99(Fasting)); Lipase 59.0 U/L (11-82); Potassium 3.9 mmol/L (3.5-5.1); Sodium 136.0 mmol/L (136-145); Total Protein 8.4 gm/dl (6.0-8.3)
[2024-11-05 11:50] LABS: INR 1.0 (0.9-1.1); Partial Thromboplastin Time 26 Seconds (21-31); Prothrombin Time 11.1 Seconds (9.0-12.0)
--- NOTE | 2024-11-05 12:09 | CT Scan Report ---
ABDOMEN AND PELVIS CT WITHOUT CONTRAST CT DOSE: 473.46 mGy.cm HISTORY: Chest pain nausea, upper abd pain TECHNIQUE: Multiaxial CT images of the abdomen and pelvis were performed without contrast. A dose lo wering technique was utilized adhering to the principles of ALARA. COMPARISON STUDY: 05/15/2024 FINDINGS: No significant interval changes have occurred. As no acute process identified in the abdome n and pelvis. The lung bases continue to show some chronic atelectasis in the medial segment of the r ight middle lobe. There are hepatic cysts present. The left kidney is absent. There is no hydronephro sis on the right side. The pancreas, adrenal glands, and spleen are negative. On this noncontrast exa mination. No aortic aneurysm or periaortic adenopathy. There is no bowel obstruction or free air. No ascites. In the pelvis, there are no acute findings. Uterus is absent. The unopacified urinary bladder is sharon sly negative. Skeletal structures are redemonstrated and L4-5 laminectomy and fusion. IMPRESSION: Stable exam; no acute process identified in the abdomen and pelvis. ACT 112: Negative or not required by law. The above report was generated using voice recognition software. It may contain grammatical, syntax o r spelling errors. Electronically signed by: Tiffany Black M.D. 11/05/2024 12:08 PM
--- NOTE | 2024-11-05 12:56 | Emergency Department Note ---
Impression & Plan Abdominal pain, epigastric, Atypical chest pain, Nausea ED Provider Note Provider: Donnie Brooks MD CHIEF COMPLAINT: Nausea, epigastric pain HISTORY OF PRESENT ILLNESS: Patient is a 89-year-old female past medical history including CKD, GERD, hypertension, COPD, Fung's esophagus, PAD presenting here today via ambulance from home. Generally patient's family called reporting the patient was having chest pain. Patient reports it was more epigastric pain and nausea than chest pain. She had some shortness of breath as well this lasted maybe 15 minutes by her report while she was at home using the bathroom. No syncope or trauma. Denies chest pain nausea or shortness of breath upon arrival here. EMS question if there might be some subtle lateral ST changes on the EKG convinced her to come here for evaluation. Denies other sick contacts or diarrhea. Denies a history of similar abdominal/nausea issues. Was seen here recently for some fluid overload and that improved. Was going to have bladder procedure but this was held up due to her recent breathing issues. Again they state that her breathing issues have resolved. PAST MEDICAL HISTORY: As noted above MEDICATIONS: Reviewed medications SOCIAL HISTORY: lives with PHYSICAL EXAM: GENERAL: alert and oriented in no acute distress on stretcher Head: normocephalic and atraumatic EYES: No injection, discharge or icterus. NECK: Trachea midline. ENT: Mucous membranes pink and moist. LUNGS: Airway patent. No retractions. Breath sounds clear with good air entry bilaterally. HEART: Regular rate and rhythm. No chest wall tenderness ABDOMEN: Soft and non-tender, without guarding or rebound. No appreciable masses SKIN: Acyanotic, warm, dry, without rashes EXTREMITIES: Without swelling, tenderness or deformity NEUROLOGICAL: No focal deficits. No aphasia. No facial droop or slurred speech. EK bpm sinus pericardia with sinus rhythm. No acute ST segment elevation or depression with a QTc of 475. CONTINUOUS CARDIAC MONITORING: was ordered and showed a heart rate of 50s-60s bpm in sinus bradycardia/normal sinus rhythm Patient's laboratory studies and imaging reviewed. Differential includes ACS, PE, appendicitis, infections, diverticulitis, UTI, obstruction, mesenteric ischemia, aortic pathology, inflammatory bowel disease, renal colic, PUD, pancreatitis, biliary pathology, hernia, volvulus, constipation, as well as other pathologies. IMPRESSION/MEDICAL DECISION MAKING: Patient well-appearing denies initial complaint. later arrives provides additional history. Patient no obvious distress. Later with little bit of nausea and dry heaving and given some Zofran. Denies any active chest pain or abdominal pain to me. Given her history and age however CT of the abdomen pelvis obtained without acute pathology. Not tender and negative Soto's and doubt obstruction based on imaging exam as well as cholecystitis or perforation. Blood work here is reassuring without significant leukocytosis, transaminitis, and/or findings of hepatitis or pancreatitis. BNP just slightly elevated 191 troponin 14.8 this is similar to somewhat improved from previous. Creatinine 1.78 perhaps just slightly worse than recent 1.3 but has been using triamterene/HCTZ regularly to help with fluid overload. No severe pain and doubt dissection. Chest x-ray questions may be a right middle lobe finding but no obvious finding on the partially on the CT and no leukocytosis I doubt this represents pneumonia that is improved suddenly. EKG here reassuring although prehospital EKG question maybe some lateral ST depression. Discussed with her and her staying for further cardiac evaluation and monitoring as I do not have a clear explanation for her symptoms. Will send a repeat troponin. Still little bit of stomach discomfort she thinks more related to feeling hungry. Nontender. Given the prehospital changes she was agreed with the plan to stay for further monitoring and cardiac evaluation as I do not have a clear etiology for her symptoms today. is agreeable. Hospitalist was consulted. DIAGNOSIS: Nausea, transient shortness of breath and epigastric pain DISPOSITION: Hospitalist will evaluate Patient was agreeable with this plan. 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 Momin; baseline creat 1.5-1.7 Right renal mass 1cm right renal mass per 03/2022 CT; following with urology Aortoiliac occlusive disease s/p b/l common iliac artery stenting and R external iliac artery stent 2017. Per Vascular note, R common iliac and external iliac artery stents occluded in postop period following L nephrectomy. 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) Vitamin D deficiency (Chronic) Pulmonary nodule (Chronic) PAD (peripheral artery disease) (Chronic) COPD (chronic obstructive pulmonary disease) (Chronic) Fung's esophagus (Chronic) Lumbar stenosis with neurogenic claudication (Chronic) Medical History Stenosis of left subclavian artery Stage 3b chronic kidney disease Secondary pulmonary arterial hypertension Pulmonary nodule History of peripheral arterial disease Lumbar stenosis with neurogenic claudication History of hypertension Hx of hyperlipidemia History of COVID-19 Cognitive impairment Hx of congestive heart failure History of Fung's esophagus Aortoiliac occlusive disease History of anemia Carotid artery stenosis History of COPD History of transitional cell carcinoma of kidney Surgical History History of right-sided carotid endarterectomy (12/26/23) Hx of hemorrhoidectomy History of nephrectomy, left S/P insertion of iliac artery stent H/O transurethral destruction of bladder lesion History of lumbosacral spine surgery History of colonoscopy (2023) History of esophagogastroduodenoscopy (EGD) (2023) S/P bronchoscopy with biopsy History of cardiac cath History of difficult intubation H/O cataract extraction History of ureter stent History of tonsillectomy Hx of cystoscopy Hx of hysterectomy Family History Aunt Family history of diabetes mellitus Mother Breast cancer Father History of kidney cancer Other Cancer Hypertension Lung disease No family history of adverse response to anesthesia Denies family history of Ovarian cancer Prostate cancer Myocardial infarction Colorectal cancer Social History Smoking Status: Former smoker Tobacco Type: Cigarettes Age Started Using Tobacco: 17; Age Quit Using Tobacco: 75; packs per day: 0.5; Cigarettes Per Day: 20; Second Hand Exposure: No; Do You Dip or Chew Tobacco: No; Hx Alcohol Use: No Hx Substance Use: No Preferred Language: Syrian Communication Ability: Effective Visual Impairment: No Limitations Dental Surgeon Required: No Beliefs That Will Affect Care: None marital status: Current Living Situation: Spouse current occupational status: retired Other Information That Helps Us Care for You: No Feels Safe at Home: Yes Safety Concerns: Feels Safe At This Time Childhood Exposure to Second-Hand Smoke: Yes Diet: regular caffeine: Yes Physical Activity Frequency: Does not Exercise Seatbelt Use: always Sunscreen Use: Yes Assistive Devices: Denture - Upper Allergies Allergies Allergy/AdvReac Type Severity Reaction Status Date / Time losartan Allergy Severe DYSPNEA Verified 10/27/24 08:26 nitrofurantoin Allergy Severe DYSPNEA Verified 10/27/24 08:26 terazosin Allergy Severe DYSPNEA Verified 10/27/24 08:26 amoxicillin Allergy Intermediate HIVES Verified 10/27/24 08:26 fluconazole Allergy Intermediate RASH, HIVES Verified 10/27/24 08:26 levofloxacin Allergy Intermediate DYSPNEA Verified 10/27/24 08:26 lisinopril Allergy Intermediate COUGH, Verified 10/27/24 08:26 DYSPNEA nifedipine Allergy Intermediate HIVES Verified 10/27/24 08:26 phenazopyridine Allergy Intermediate HIVES Verified 10/27/24 08:26 sulfamethoxazole Allergy Intermediate HIVES Verified 10/27/24 08:26 trimethoprim Allergy Intermediate HIVES Verified 10/27/24 08:26 clopidogrel [From Plavix] AdvReac Intermediate SOB Verified 10/27/24 08:26 ticagrelor [From Brilinta] AdvReac Intermediate SOB Verified 10/27/24 08:26 Home Meds Home Medications Medication Instructions Recorded Confirmed cholecalciferol (vitamin D3) 25 1,000 unit PO UD 11/07/18 11/05/24 mcg (1,000 unit) capsule (Vitamin D3) magnesium 250 mg tablet 0 mg PO QPM 11/26/19 11/05/24 aspirin 81 mg tablet,delayed 81 mg PO UD 10/01/23 11/05/24 release rosuvastatin 20 mg tablet 20 mg PO QAM 09/27/24 11/05/24 Previous Rx's Medication Instructions Recorded albuterol sulfate 90 mcg/actuation 1 - 2 puff inhalation Q4H PRN 01/17/23 aerosol inhaler (Ventolin HFA) shortness of breath or wheezing #6.7 grams potassium chloride 10 mEq 10 meq PO QAM #90 tabs 06/05/24 tablet,extended release atenolol 25 mg tablet 25 mg PO QAM #90 tabs 09/09/24 Spiriva with HandiHaler 18 mcg and 1 cap inhalation QAM #30 09/26/24 inhalation capsules (tiotropium inhalations bromide) triamterene 37.5 1 cap PO DAILY #30 caps 10/27/24 mg-hydrochlorothiazide 25 mg capsule Results & Data (ED) Vital Signs Vital Signs - 24 hr 11/05/24 11:04 11/05/24 11:05 11/05/24 12:32 Temperature 37.1 C Temperature Source Oral Pulse Rate 59 L 58 L Pulse Rate [Finger] 50 L Respiratory Rate 18 18 Blood Pressure 166/68 H Blood Pressure [Right Arm] 143/60 H Blood Pressure Mean 100 Blood Pressure Mean [Right Arm] 87 Pulse Oximetry 94 92 Oxygen Delivery Method Room Air Room Air Sepsis Recent Fever Within 48 Hours No Sepsis New/Unexplained Change in Mental Status No Sepsis Action Taken by Nursing No Action Required Laboratory Data 11/05/24 10:30 11/05/24 10:30 Lab Results 11/05/24 Range/Units 10:30 WBC 8.41 (4.8-10.8) K/ul RBC 4.98 (4.20-5.40) M/uL Hgb 13.9 (12.0-16.0) g/dl Hct 44.2 (37.0-47.0) % MCV 88.8 (80.0-100.0) fL MCH 27.9 (25.0-34.0) pg MCHC 31.4 L (32.0-36.0) g/dL RDW Std Deviation 48.6 H (36.4-46.3) fL RDW Coeff of Shaquille 14.9 H (11.5-14.5) % Plt Count 582 H (130-400) K/uL MPV 10.6 (9.4-12.4) fL Immature Gran % (Auto) 0.4 % Neut % (Auto) 63.7 % Lymph % (Auto) 22.7 % Ware % (Auto) 8.8 % Eos % (Auto) 3.3 % Baso % (Auto) 1.1 % Neut # (Auto) 5.36 (1.40-6.50) K/uL Lymph # (Auto) 1.91 (1.20-3.40) K/uL Ware # (Auto) 0.74 H (0.11-0.59) K/uL Eos # (Auto) 0.28 (0.00-0.50) K/uL Baso # (Auto) 0.09 (0.00-0.20) K/uL Immature Gran # (Auto) 0.03 (0.01-0.20) K/uL PT 11.1 (9.0-12.0) Seconds INR 1.0 (0.9-1.1) APTT 26 (21-31) Seconds PTT Ratio 1.0 Sodium 136 (136-145) mmol/L Potassium 3.9 (3.5-5.1) mmol/L Chloride 99 (98-107) mmol/L Carbon Dioxide 31 (21-32) mmol/L Anion Gap 6 (3-11) BUN 33 H (6-23) mg/dl Creatinine 1.78 H (0.6-1.2) mg/dl Est Cr Clr Drug Dosing 27.3 ml/min eGFR 26.96 BUN/Creatinine Ratio 18.5 (10-20) Glucose 111 H (70-99(Fasting)) mg/dl Calcium 9.4 (8.6-10.3) mg/dl Total Bilirubin 0.5 (0.2-1.0) mg/dl AST 26 (13-39) U/L ALT 19 (7-52) U/L Alkaline Phosphatase 71 (34-104) U/L Troponin I High Sens 14.8 H (0-14) pg/ml B-Natriuretic Peptide 191 H (0-100) pg/ml Total Protein 8.4 H (6.0-8.3) gm/dl Albumin 4.1 (3.4-5.0) gm/dl Globulin 4.3 H (2.5-4.0) gm/dl Albumin/Globulin Ratio 1.0 (0.9-2) Lipase 59 (11-82) U/L Administered Medications Sodium Chloride (Nss) 1,000 mls @ 80 mls/hr IV .[id number] OZZY Stop: 11/06/24 03:14 Last Admin: 11/05/24 15:00 Dose: 80 mls/hr Documented By: KOMAL Discontinued Medications Al Hydrox/Mg Hydrox/Simethicone (Aluminum/Magnesium Susp 30 Ml Udc) 15 ml PO NOW STA Stop: 11/05/24 16:20 Last Admin: 11/05/24 17:21 Dose: 15 ml Documented By: SANJIV Ondansetron HCl (Ondansetron Inj 2 Mg/Ml 2 Ml Vial) 4 mg IV NOW STA Stop: 11/05/24 11:29 Last Admin: 11/05/24 11:33 Dose: 4 mg Documented By: QGV Imaging Data Radiologist's Impression: Chest X-Ray 11/05/24 11:05 XR chest 1V portable CLINICAL HISTORY: Chest pain, nonspecific COMPARISON STUDY: 10/06/2024 FINDINGS: Single view portable chest demonstrates no evidence of pneumothorax or pleural effusion. There is a small area of patchy increased density in the right midlung zone which could represent nonspecific atelectasis. Early infiltrate doubtful but difficult to completely exclude. Heart size and pulmonary vascularity are unremarkable. IMPRESSION: Small airspace opacity right midlung zone of uncertain clinical significance. ACT 112: Negative or not required by law. Electronically signed by: Tiffany Black M.D. 11/05/2024 11:36 AM Abdomen/Pelvis CT 11/05/24 11:[address] WITHOUT CONTRAST CT DOSE: 473.46 mGy.cm HISTORY: Chest pain nausea, upper abd pain TECHNIQUE: Multiaxial CT images of the abdomen and pelvis were performed without contrast. A dose lowering technique was utilized adhering to the principles of ALARA. COMPARISON STUDY: 05/15/2024 FINDINGS: No significant interval changes have occurred. As no acute process identified in the abdomen and pelvis. The lung bases continue to show some chronic atelectasis in the medial segment of the right middle lobe. There are hepatic cysts present. The left kidney is absent. There is no hydronephrosis on the right side. The pancreas, adrenal glands, and spleen are negative. On this noncontrast examination. No aortic aneurysm or periaortic adenopathy. There is no bowel obstruction or free air. No ascites. In the pelvis, there are no acute findings. Uterus is absent. The unopacified urinary bladder is grossly negative. Skeletal structures are redemonstrated and L4-5 laminectomy and fusion. IMPRESSION: Stable exam; no acute process identified in the abdomen and pelvis. ACT 112: Negative or not required by law. The above report was generated using voice recognition software. It may contain grammatical, syntax or spelling errors. Electronically signed by: Tiffany Black M.D. 11/05/2024 12:08 PM Discharge Plan Visit Data Chief Complaint: Cardiac Assessment Stated Complaint: CARDIAC ASSESMENT ED Provider: Donnie Brooks Discharge Problem: Abdominal pain, epigastric, Atypical chest pain, Nausea Patient Disposition: Admitted As Inpatient Condition: Fair Discharge Instructions Interventions: ED Discharge Assessment Last Done: 11/05/24 15:49
--- NOTE | 2024-11-05 14:15 | History & Physical Report ---
Date of Service November 05, 2024 Assessment & Plan (1) Chest pain: (2) ISELA (acute kidney injury): Plan This patient is an 89yo female who presented for chest pain on 11/05. #Chest pain EMS EKG reported to have ST depressions EKG on arrival revealed sinus bradycardia at 58 bpm; no ischemic changes notified Heart score: 5 (moderate due to risk factors: Smoking, HTN, hypercholesteremia, PAD) Troponin 14.8 on arrival, repeat pending; trend to peak Most recent echocardiogram on 10/30/2024 revealed LVEF at 65 to 70% with grade 2 diastolic dysfunction Trial of Maalox 15 mg x 1 Continuous telemetry monitoring #History of carotid stent Continue aspirin #ISELA | dehydration Mild; creatinine 1.78 (baseline 1.34) Hold triamtereneHCTZ Avoid nephrotoxic agents where possible NSS at 80mL/hr x 1 L #HLD Continue rosuvastatin #HTN Continue atenolol Disposition: Obs - Admit to Medr telemetry VTE PPx: SCDs Admission and Anticipated Discharge Date Admission Date: Attending Attestation & Admit Note: Pt seen/examined, chart reviewed, admit care plan d/w MYRTLE Nesbitt. I agree w/ the terry components of his admission documentation. 89yo female with COPD, extensive PAD (carotid disease, aorto-iliac disease), Fung's esophagus, HTN, GERD, hyperlipidemia, B12 deficiency, CKD stage 4, solitary kidney due to prior h/o kidney cancer requiring nephrectomy, and cognitive impairment. Presented via EMS on 11/05 for acute onset of abdominal pain +/- lower chest pain. Symptoms lasted <60 minutes. Some brief dyspnea by report. During my admission assessment pt's symptoms were fully resolved and she was feeling well. Able to tolerate a meal shortly after admission. PMH/PSH/allergies/meds/sochx/famhx - reviewed vitals: BPs elevated, afebrile gen - thin, NAD, comfortable, lying in bed neck - no JVD mouth - MM dry heart - RRR, s1 s2 lungs - CTA b/l, no rales abd - soft NT ND BS+, no HSM, no peritoneal signs ext - no edema, pulses 1+ b/l feet psych - mild pleasant confusion labs reviewed imaging reviewed EKG - sinus nikki, nonspecific ST changes I/AVL (old), no acute ST changes, mildly prolonged QTc A/P: 1. acute abdominal pain +/- lower chest pain - etiology uncertain, but pain fully resolved -initial troponin minimally elevated, with modest rise in next troponin to the 70s -CT a/p without acute findings -lipase, LFTs wnl -will trend the troponins further; telemetry; serial exams -defer on repeat echo - just had such within the last week; EF was preserved; grade 2 diastolic dysfunction; normal LV wall motion 2. elevated troponin - demand ischemia in setting of #1? 3. mild ISELA - patient appears volume contracted; will provide IV Fluids, repeat BMP am Suresh Awan MD History of Present Illness Chief Complaint: Cardiac assessment Primary Care Provider: Yenni Rodriguez MD Mrs. Rankin is an 89-year-old female with PMH of COPD, PAD, Fung's esophagus, HTN, GERD, HLD, B12 deficiency, aortoiliac occlusive disease, atypical chest pain and CKD. She presented via EMS on 11/05 for acute onset of chest pain. Patient reports she felt normal when she woke up this morning around 5 AM. She was then sitting in a chair around 9:20 AM when she developed sudden onset of "burning" epigastric/substernal pain. Her came back in for his walk, and reports that she was "doubled over" in pain. 10/10 pain at worst. This pain lasted for approximately 45 minutes. No radiation to the back or down the arms. Patient did not take any pain medicine before coming into the hospital. However, the pain was so bad that she became nauseated and vomited prior to arrival. EMS took an EKG in the field which showed ST depressions. Patient reports she is chest/abdominal pain-free at time of admission. She took her regular morning medicines today; no recent change in medications. She denies any history of episodes of chest pain prior to this 1. Per patient, no history of GERD or reflux. No PMH of ND, stroke, or T2DM. She does have history of hypertension and PVD; history of carotid stent with Dr. Salamanca. She denies any recent falls or injuries to the chest wall. No muscle strains. No change in diet. No rashes or tick bites to her knowledge. No sick contacts. Patient is a current everyday tobacco cigarette smoker; she reports she has 1 to 2 cigarettes "every so often". Patient is hypertensive at 151/103, and bradycardic at 55 bpm at time of admission; vitals otherwise stable. ED course: Zofran 4 mg IV ROS: Patient endorses chest/epigastric pain (resolved), nausea and vomiting. Patient denies fever, chills, night-sweats, lightheadedness, dizziness, chest palpitations, pleuritic CP, SOB, cough, abdominal pain, diarrhea, changes in urinary/bowel habits, or N/T in the arms. Allergies Allergy/AdvReac Type Severity Reaction Status Date / Time losartan Allergy Severe DYSPNEA Verified 11/10/24 16:20 nitrofurantoin Allergy Severe DYSPNEA Verified 11/10/24 16:20 terazosin Allergy Severe DYSPNEA Verified 11/10/24 16:20 amoxicillin Allergy Intermediate HIVES Verified 11/10/24 16:20 fluconazole Allergy Intermediate RASH, HIVES Verified 11/10/24 16:20 levofloxacin Allergy Intermediate DYSPNEA Verified 11/10/24 16:20 lisinopril Allergy Intermediate COUGH, Verified 11/10/24 16:20 DYSPNEA nifedipine Allergy Intermediate HIVES Verified 11/10/24 16:20 phenazopyridine Allergy Intermediate HIVES Verified 11/10/24 16:20 sulfamethoxazole Allergy Intermediate HIVES Verified 11/10/24 16:20 trimethoprim Allergy Intermediate HIVES Verified 11/10/24 16:20 clopidogrel [From Plavix] AdvReac Intermediate SOB Verified 11/10/24 16:20 ticagrelor [From Brilinta] AdvReac Intermediate SOB Verified 11/10/24 16:20 Home Medications Medication Instructions Recorded Confirmed Type cholecalciferol (vitamin D3) 25 1,000 unit PO UD 11/07/18 11/10/24 History mcg (1,000 unit) capsule (Vitamin D3) albuterol sulfate 90 mcg/actuation 1 - 2 puff inhalation Q4H PRN 01/17/23 11/10/24 Rx aerosol inhaler (Ventolin HFA) shortness of breath or wheezing #6.7 grams potassium chloride 10 mEq 10 meq PO QAM #90 tabs 06/05/24 11/10/24 Rx tablet,extended release atenolol 25 mg tablet 25 mg PO QAM #90 tabs 09/09/24 11/10/24 Rx Spiriva with HandiHaler 18 mcg and 1 cap inhalation QAM #30 09/26/24 11/10/24 Rx inhalation capsules (tiotropium inhalations bromide) rosuvastatin 20 mg tablet 20 mg PO QAM 09/27/24 11/10/24 History triamterene 37.5 1 cap PO DAILY #30 caps 10/27/24 11/10/24 Rx mg-hydrochlorothiazide 25 mg capsule aspirin 81 mg tablet,delayed 81 mg PO DAILY #0 tabs 11/07/24 11/10/24 Rx release cyanocobalamin (vitamin B-12) 1,000 mcg PO DAILY #90 tabs 11/07/24 11/10/24 Rx 1,000 mcg tablet magnesium 250 mg tablet 250 mg PO QPM #0 tabs 11/07/24 11/10/24 Rx Past Med/Surg History Problem List (Updated 11/10/24 @ 00:07 by Background Daemon) Celiac artery stenosis Acute encephalopathy Solitary kidney, acquired ISELA (acute kidney injury) Chest pain Nausea (Acute) Atypical chest pain (Acute) Abdominal pain, epigastric (Acute) Dyspnea Stenosis of left subclavian artery (Chronic) vascular surgery recommends to take BP in right arm Anemia Stenosis of right carotid artery 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 Momin; baseline creat 1.5-1.7 Right renal mass 1cm right renal mass per 03/2022 CT; following with urology Aortoiliac occlusive disease s/p b/l common iliac artery stenting and R external iliac artery stent 2016. Per Vascular note, R common iliac and external iliac artery stents occluded in postop period following L nephrectomy. 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 Momin; baseline creat 1.5-1.7 pt denies Secondary pulmonary arterial hypertension hx Pulmonary nodule hx History of peripheral arterial disease Lumbar stenosis with neurogenic claudication History of hypertension Hx of hyperlipidemia History of COVID-19 pt denies 06/2024 per records Cognitive impairment hx Hx of congestive heart failure Signs of volume overload in [place] ED 09/27/24- treated with Lasix History of Fung's esophagus Aortoiliac occlusive disease s/p b/l common iliac artery stenting and R external iliac artery stent 2016. Per Vascular note, R common iliac and external iliac artery stents occluded in postop period following L nephrectomy. Vascular observing at this time; pt asymptomatic History of anemia Carotid artery stenosis - 90% right ICA stenosis - s/p right CEA 12/2023 - Per vascular note 03/13/24- carotid ultrasound that day showed widely patent right CEA with no restenosis, mild intimal hyperplasia noted, <50% stenosis left ICA, right vertebral artery antegrade flow, left vertebral artery demonstrates some retrograde flow History of COPD Seen in [place] ED 09/27/24 for COPD exacerbation after running out of Spiriva History of transitional cell carcinoma of kidney s/p left nephrectomy 2018, sx only Surgical History History of right-sided carotid endarterectomy (12/26/23) [facility] Hx of hemorrhoidectomy History of nephrectomy, left 02/21/18 - Glidescope #3, ETT #7.5, HiLo Oral, Grade 1 View S/P insertion of iliac artery stent bilateral, 2016, prior to kidney removal. Per Vascular note, R common iliac and external iliac artery stents occluded in postop period following L nephrectomy H/O transurethral destruction of bladder lesion History of lumbosacral spine surgery "many years ago," lower back History of colonoscopy (2023) History of esophagogastroduodenoscopy (EGD) (2023) S/P bronchoscopy with biopsy 1. Endobronchial ultrasound with biopsy. 2. Electromagnetic navigational bronchoscopy with washings. Dr. Brambila 11-08-18 History of cardiac cath pt denies History of difficult intubation left hand assisted nephrectomy: 02/21/18: Grade 1 view, Glidescope #3, ETT 7.5 at [facility] H/O cataract extraction rt/lt History of ureter stent left>removed History of tonsillectomy Hx of cystoscopy Hx of hysterectomy BSO Family History Aunt Family history of diabetes mellitus Mother Breast cancer Father History of kidney cancer Other Cancer Hypertension Lung disease No family history of adverse response to anesthesia Denies family history of Ovarian cancer Prostate cancer Myocardial infarction Colorectal cancer Social History Smoking Status: Former smoker Tobacco Type: Cigarettes Age Started Using Tobacco: 17; Age Quit Using Tobacco: 75; packs per day: 0.5; Cigarettes Per Day: 20; Second Hand Exposure: No; Do You Dip or Chew Tobacco: No; Hx Alcohol Use: No Hx Substance Use: No Preferred Language: Scottish Communication Ability: Impaired Visual Impairment: No Limitations 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 Required: No Beliefs That Will Affect Care: None marital status: Current Living Situation: Spouse current occupational status: retired Feels Safe at Home: Yes Childhood Exposure to Second-Hand Smoke: Yes Diet: regular caffeine: Yes Physical Activity Frequency: Does not Exercise Seatbelt Use: always Sunscreen Use: Yes Assistive Devices: None Review of Systems Review of Systems: See HPI above Physical Exam Physical Exam: General: no acute distress; at bedside; non-toxic appearing; frail appearing; anxious; cooperative; SpO2 92% on RA HEENT: normocephalic, atraumatic; no scleral icterus; PERRLA; vision and hearing intact Neck: supple; no lymphadenopathy; trachea midline Skin: warm, dry without signs of tenting; no cyanosis; no rashes, bruising, lesions, or erythema noted CV: chest wall NTP; no rashes appreciated on the chest wall or flank; RRR, mildly bradycardic around 55 bpm; S1/S2 normal; no murmurs/rubs/gallops; pulses intact and symmetric at radial, DP, and PT Lungs: no acute respiratory distress; symmetrical chest wall expansion; clear breath sounds across all lung harper w/o adventitious sounds; no wheezing ABD: Soft, NTP; BS present; no rebound/guarding; no distention MSK: no tics or fasciculations; no edema noted in the LEs b/l, nonerythematous Neuro: A&Ox3 -initially, she struggles to name the month of the year, but does recall it with gentle prompting; normal mood and affect; fluent speech; no focal deficits appreciated; sensation intact and symmetric in the lower extremities bilaterally Results & Data Results & Data Vital Signs (Past 12 Hours) Vital Signs Temp Pulse Pulse Resp BP BP Pulse Ox 11/05/24 12:32 50 L 18 143/60 H 92 11/05/24 11:05 37.1 C 58 L 18 166/68 H 94 11/05/24 11:04 59 L O2 Del Method 11/05/24 12:32 Room Air 11/05/24 11:05 Room Air 11/05/24 11:04 Laboratory Results Abnormal lab results 11/05/24 Range/Units 10:30 MCHC 31.4 L (32.0-36.0) g/dL RDW Std Deviation 48.6 H (36.4-46.3) fL RDW Coeff of Shaquille 14.9 H (11.5-14.5) % Plt Count 582 H (130-400) K/uL Perkins # (Auto) 0.74 H (0.11-0.59) K/uL BUN 33 H (6-23) mg/dl Creatinine 1.78 H (0.6-1.2) mg/dl Glucose 111 H (70-99(Fasting)) mg/dl Troponin I High Sens 14.8 H (0-14) pg/ml B-Natriuretic Peptide 191 H (0-100) pg/ml Total Protein 8.4 H (6.0-8.3) gm/dl Globulin 4.3 H (2.5-4.0) gm/dl Diagnostic Findings Chest X-Ray 11/05/24 11:05 XR chest 1V portable CLINICAL HISTORY: Chest pain, nonspecific COMPARISON STUDY: 10/06/2024 FINDINGS: Single view portable chest demonstrates no evidence of pneumothorax or pleural effusion. There is a small area of patchy increased density in the right midlung zone which could represent nonspecific atelectasis. Early infiltrate doubtful but difficult to completely exclude. Heart size and pulmonary vascularity are unremarkable. IMPRESSION: Small airspace opacity right midlung zone of uncertain clinical significance. ACT 112: Negative or not required by law. Electronically signed by: Tiffany Black M.D. 11/05/2024 11:36 AM Abdomen/Pelvis CT 11/05/24 11:[address] WITHOUT CONTRAST CT DOSE: 473.46 mGy.cm HISTORY: Chest pain nausea, upper abd pain TECHNIQUE: Multiaxial CT images of the abdomen and pelvis were performed without contrast. A dose lowering technique was utilized adhering to the principles of ALARA. COMPARISON STUDY: 05/15/2024 FINDINGS: No significant interval changes have occurred. As no acute process identified in the abdomen and pelvis. The lung bases continue to show some chronic atelectasis in the medial segment of the right middle lobe. There are hepatic cysts present. The left kidney is absent. There is no hydronephrosis on the right side. The pancreas, adrenal glands, and spleen are negative. On this noncontrast examination. No aortic aneurysm or periaortic adenopathy. There is no bowel obstruction or free air. No ascites. In the pelvis, there are no acute findings. Uterus is absent. The unopacified urinary bladder is grossly negative. Skeletal structures are redemonstrated and L4-5 laminectomy and fusion. IMPRESSION: Stable exam; no acute process identified in the abdomen and pelvis. ACT 112: Negative or not required by law. The above report was generated using voice recognition software. It may contain grammatical, syntax or spelling errors. Electronically signed by: Tiffany Black M.D. 11/05/2024 12:08 PM ECG Additional Comments: ECG revealed sinus bradycardia with sinus arrhythmia at 58 bpm; QTc 475 Code Status & VTE Plan Code Status DNR/DNI VTE Prophylaxis Plan VTE Prophylaxis will be ordered: Yes PG Care Time/CCT Total # of Minutes Spent Total Time Spent with Patient: Total time spent is greater than 50% in coordination of care (as documented) at patient's floor/unit and/or counseling patient: Coding [place] [address] INT INP/OBS CARE 2/55MIN Patient Type Established Medical Decision Making Moderate Complexity Diagnoses Chest pain R07.9 ISELA (acute kidney injury) N17.9
[2024-11-05] MEDS: SODIUM CHLORIDE 0.9% 1,000 ML IV SCH (15:00)
[2024-11-05] MEDS ORDERED: MELATONIN 3 MG TAB PO PRN (16:13)
[2024-11-05] MEDS ORDERED: ACETAMINOPHEN 325 MG TAB PO PRN (16:13)
[2024-11-05] MEDS ORDERED: ALUMINUM/MAGNESIUM SUSP 30 ML UDC PO PRN (16:13)
[2024-11-05] MEDS ORDERED: ALBUTEROL HFA 8 GM INHALER INH PRN (16:13)
[2024-11-05] MEDS: ALUMINUM/MAGNESIUM SUSP 30 ML UDC PO STA (17:21)
[2024-11-05] MEDS: MAGNESIUM OXIDE 400 MG TAB PO SCH (20:55)
--- NOTE | 2024-11-06 06:51 | Communication Note ---
Date of Service: November 06, 2024 Alerted around 11pm by staff that pt was confused and aggressive; was getting out of bed, trying to tear down curtain between her and her roommate, walking out and coming up to staff and threatening them and trying to punch staff. Went up to discuss with nurse. During discussion, pt getting out of bed, threatening staff, and trying to tear curtain down. Pt not able to be redirected. Ordered small 2.5 mg IM dose zyprexa. Staff note that when trying to give it, patient threw objects and again threatening staff. Restraints placed temporarily for safety of staff. No further calls overnight. Resident Activity Tracking Resident Involvement: Resident Care Provided Care Provided: Adult Hospital Medicine
[2024-11-06] MEDS: ASPIRIN 81 MG ECTAB PO SCH (08:25)
[2024-11-06] MEDS: UMECLIDINIUM BROMIDE 62.5MCG/BLISTER 7 PUFFS/INHALER INH SCH (08:25)
[2024-11-06] MEDS: ATENOLOL 25 MG TABLET PO SCH (08:25)
[2024-11-06] MEDS: ROSUVASTATIN CALCIUM 20 MG TAB PO SCH (08:25)
[2024-11-06] MEDS: POTASSIUM CHLORIDE 10 MEQ TABCR PO SCH (08:30)
[2024-11-06 10:05] LABS: Hematocrit (blood only) 42.2 % (37.0-47.0); Hemoglobin 13.1 g/dl (12.0-16.0); Mean Corpuscular Hemoglobin 27.9 pg (25.0-34.0); Mean Corpuscular Volume 90.0 fL (80.0-100.0); Platelet Count 541 K/uL (130-400); RDW Standard Deviation 49.9 fL (36.4-46.3); Red Blood Count 4.69 M/uL (4.20-5.40); White Blood Count 8.71 K/ul (4.8-10.8)
[2024-11-06 10:21] LABS: Iron 77.0 mcg/dl (35-150); Total Iron Binding Cap Calc 347.0 mcg/dl (250-450); Transferrin 248.0 mg/dl (200-360); Transferrin (FE) Percent Satur 22.0 % (15-50)
[2024-11-06 10:24] LABS: Anion Gap 6.0 (3-11); Blood Urea Nitrogen 37.0 mg/dl (6-23); Calcium 8.7 mg/dl (8.6-10.3); Carbon Dioxide 30.0 mmol/L (21-32); Chloride 104.0 mmol/L (98-107); Creatinine Clr Calc Pharmacy 16.3 ml/min; Glucose 84.0 mg/dl (70-99(Fasting)); Potassium 4.3 mmol/L (3.5-5.1); Sodium 140.0 mmol/L (136-145)
[2024-11-06 10:41] LABS: Ferritin 189.1 ng/ml (8-388)
[2024-11-06 10:50] LABS: Folate (Folic Acid),Ser orPlas 11.5 ng/ml (>5.38)
[2024-11-06 10:51] LABS: Vitamin B12 189.0 pg/ml (180-914)
[2024-11-06] MEDS: CYANOCOBALAMIN (B-12) 500 MCG TABLET PO SCH (12:25)
--- NOTE | 2024-11-06 14:20 | Electrocardiogram Report ---
Test Reason : Blood Pressure : */* mmHG Vent. Rate : 58 BPM Atrial Rate : 58 BPM P-R Int : 176 ms QRS Dur : 74 ms QT Int : 484 ms P-R-T Axes : 83 35 98 degrees QTcB Int : 475 ms Sinus bradycardia with sinus arrhythmia Nonspecific ST and T wave abnormality Prolonged QT Abnormal ECG When compared with ECG of 06-Oct-2024 15:36, Questionable change in QRS axis ST now depressed in Lateral leads Confirmed by Yoseph Carrington ([id number]) on 11/06/2024 2:20:14 PM Referred By: Confirmed By: Yoseph Carrington
[2024-11-06 15:16] LABS: Creatinine Clr Calc Pharmacy 15.8 ml/min
[2024-11-06] MEDS: SODIUM CHLORIDE 0.9% 500 ML IV SCH (15:39)
[2024-11-06 15:50] LABS: Appearance Urine Clear (Clear); Glucose Urine UA Negative (Negative)
--- NOTE | 2024-11-06 19:31 | Hospitalist Progress Note ---
Date of Service November 06, 2024 Assessment & Plan (1) Chest pain: (2) ISELA (acute kidney injury): (3) Abdominal pain: (4) Solitary kidney, acquired: (5) B12 deficiency: (6) Acute encephalopathy: (7) Cognitive impairment: (8) Celiac artery stenosis: Plan 89yo female who presented with abdominal pain (vs chest pain) on 11/05/24. #Initial reports that she had chest pain but stated it was abdominal pain - -CT abd/pelvis negative -prior CTA studies, however, revealed severe celiac artery stenosis -- was abd pain due to mesenteric ischemia event? -lipase, LFTs wnl -u/a wnl -no recurrent chest or abd pain since admission -she should continue on aspirin & statin -if she has recurrent episodes of abd pain consider repeat imaging of the celiac artery (MRA) #elevated troponin - -likely myocardial demand ischemia from her abd pain event; BPs also high upon ER presentation -no evidence of ACS -echo done as outpatient on 10/30 showed preserved EF with normal LV wall motion -cont asa/statin #History of carotid stent - -continue aspirin and statin #ISELA - -creatinine 1.78 upon admission (baseline 1.34) -serial Cr levels - now higher at 1.9 -give IV fluids again today, cont to hold triamtereneHCTZ -repeat BMP am #Hyperlipidemia - -continue rosuvastatin #HTN - -continue atenolol #acute encephalopathy - -likely hospital psychosis in setting of baseline cognitive impairment -schedule zyprexa 2.5mg HS tonight #abnormal CXR - -RML findings were seen on prior imaging; as example, Chest CT 2022 showed "Chronic volume loss of the right middle lobe with unchanged consolidation of the medial segment." -will repeat 2-view cxr in am for stability purposes but suspicion for active pneumonia very low #COPD - -no exacerbation at this time updated at bedside multiple times today hopeful for d/c tomorrow if creatinine is improved change observation to admission status Admission and Anticipated Discharge Date Admission Date: November 05, 2024 Subjective overnight patient became very agitated she briefly needed restraints as she was combative towards nursing staff, trying to hit them, etc. she received IM zyprexa x 1 and she calmed down and finally rested restraints were removed following such saw patient twice today both visits she offered no physical complaints asking to go home no recurrent abd pain no dyspnea no N/V no chest pain tele wnl overnight at bedside we discussed the mild ISELA and given her solitary kidney recommended IV fluids & observation overnight rather than d/c home Review of Systems Review of Systems: gen - no fevers cv - no orthopnea pulm - no cough GI - no recurrent pains musculo/neuro - walking ok with going to bathroom, etc (per staff) Physical Exam Physical Exam: gen - pleasantly confused during the visit but NAD, calm, pleasant mouth - MM dry neck - no JVD heart - RRR, s1 s2 lungs - CTA b/l except faint/dry rales right base only abd - soft, NT, ND, BS+, no HSM ext - no edema, pulses 2+ b/l psych - mild pleasant confusion Results & Data Results & Data Vital Signs (Past 12 Hours) Vital Signs Temp Pulse Pulse Resp BP Pulse Ox O2 Del Method 11/06/24 15:09 36.5 C 57 L 18 104/53 L 92 Room Air 11/06/24 13:15 61 11/06/24 11:40 36.5 C 95 H 18 101/64 96 Room Air 11/06/24 08:24 70 11/06/24 07:50 36.4 C L 59 L 18 115/46 L 91 Room Air Laboratory Results Laboratory Results - last 24 hr 11/06/24 11/06/24 11/06/24 08:10 14:22 15:43 WBC 8.71 RBC 4.69 Hgb 13.1 Hct 42.2 MCV 90.0 MCH 27.9 MCHC 31.0 L RDW Std Deviation 49.9 H RDW Coeff of Shaquille 15.2 H Plt Count 541 H MPV 10.8 Sodium 140 Potassium 4.3 Chloride 104 Carbon Dioxide 30 Anion Gap 6 BUN 37 H Creatinine 1.85 H 1.91 H Est Cr Clr Drug Dosing 16.3 15.8 eGFR 25.74 24.77 BUN/Creatinine Ratio 20.0 Glucose 84 Calcium 8.7 Iron 77 TIBC 347 Transferrin 248 Transferrin % Sat 22 Ferritin 189.1 Vitamin B12 189 Folate 11.50 Urine Color Yellow Urine Appearance Clear Urine pH 5.5 Ur Specific [place] 1.010 Urine Protein Negative Urine Glucose (UA) Negative Urine Ketones Negative Urine Blood Negative Urine Nitrite Negative Urine Bilirubin Negative Urine Urobilinogen Negative Ur Leukocyte Esterase Negative PG Care Time/CCT Total # of Minutes Spent Total Time Spent with Patient: Total time spent is greater than 50% in coordination of care (as documented) at patient's floor/unit and/or counseling patient: Coding Level of Care Code 87660 SUB INP/OBS CARE 3/50MIN Diagnoses Chest pain R07.9 ISELA (acute kidney injury) N17.9 Abdominal pain R10.9 Solitary kidney, acquired Z90.5 B12 deficiency E53.8 Acute encephalopathy G93.40 Cognitive impairment R41.89 Celiac artery stenosis I77.4
[2024-11-06 19:40] VITALS: RESP 16
[2024-11-06] MEDS: OLANZAPINE 2.5 MG TAB PO SCH (21:01)
[2024-11-07 07:49] LABS: Anion Gap 8.0 (3-11); Blood Urea Nitrogen 42.0 mg/dl (6-23); Calcium 8.4 mg/dl (8.6-10.3); Carbon Dioxide 26.0 mmol/L (21-32); Chloride 107.0 mmol/L (98-107); Creatinine Clr Calc Pharmacy 15.5 ml/min; Glucose 77.0 mg/dl (70-99(Fasting)); Potassium 4.3 mmol/L (3.5-5.1); Sodium 141.0 mmol/L (136-145)
[2024-11-07 08:07] VITALS: BP 106/65; PULSE 65; TEMP 97.9; O2SAT 92
--- NOTE | 2024-11-07 11:27 | Discharge Summary ---
Discharge Summary Date of Service date of admission - November 05, 2024 date of discharge - November 07, 2024 Principal Dx & Hospital Course #1 = Principal Diagnosis (1) Abdominal pain: (2) Chest pain: (3) ISELA (acute kidney injury): (4) B12 deficiency: (5) Solitary kidney, acquired: Plan 89yo female who presented with an episode of abdominal pain at her home. Pain may have also been in the lower chest area. 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 -other etiology? -during her stay she had NO abdominal pain, chest pain, or other GI/cardiopulmonary symptoms -she tolerated a diet without difficulty -patient's reported that patient has follow-up with Dr Jason Salamanca from [facility] later this summer -perhaps repeat imaging of the mesenterics can be undertaken in the future #elevated troponin - -peak troponin was 76.8 -suspect this was due to myocardial demand ischemia in the setting of her abdominal pain episode / ISELA -ACS not suspected #ISELA | dehydration - -creatinine at presentation was 1.78 (baseline 1.3-1.5) -triamtereneHCTZ was held while hospitalized -was given IV fluids -discharge creatinine was 1.9 -u/a was bland; no casts seen -CT abd/pelvis did not show evidence of obstruction -at discharge recommended HOLDING triamterene-HCTZ -she should also have a repeat BMP within a week of discharge to ensure st ability of her creatinine #History of carotid stent - -Continue aspirin -Continue rosuvastatin #Hyperlipidemia - cContinue rosuvastatin #HTN - -Continue atenolol -HOLD triamterene-HCTZ #Cognitive impairment - -patient had 1 night when she had confusion above her typical baseline -she did require seroquel at HS for such #CKD stage 4 - -baseline creatinine is typically about 1.3 to 1.5 -had a mild ISELA while here with discharge creatinine 1.9 -will need repeat BMP within 1 week to ensure stability of creatinine #vitamin B12 deficiency - -B12 level was 189 -advised [id number] vitamin B12 1000mcg daily x 6 months #history of solitary kidney - -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 Rankin is an 89-year-old female with PMH of COPD, PAD, Fung's esophagus, HTN, GERD, Hyperlipidemia, B12 deficiency, aortoiliac occlusive disease, atypical chest pain and CKD. She presented via EMS on 11/05 for acute onset of chest pain. Patient reports she felt normal when she woke up this morning around 5 AM. She was then sitting in a chair around 9:20 AM when she developed sudden onset of "burning" epigastric/substernal pain. Her came back in for his walk, and reports that she was "doubled over" in pain. 10/10 pain at worst. This pain lasted for approximately 45 minutes. No radiation to the back or down the arms. Patient did not take any pain medicine before coming into the hospital. However, the pain was so bad that she became nauseated and vomited prior to arrival. EMS took an EKG in the field which showed ST depressions. Patient reports she is chest/abdominal pain-free at time of admission. She took her regular morning medicines today; no recent change in medications. She denies any history of episodes of chest pain prior to this 1. Per patient, no history of GERD or reflux. No PMH of MD, stroke, or T2DM. She does have history of hypertension and PVD; history of carotid stent with Dr. Salamanca. She denies any recent falls or injuries to the chest wall. No muscle strains. No change in diet. No rashes or tick bites to her knowledge. No sick contacts. Patient is a current everyday tobacco cigarette smoker; she reports she has 1 to 2 cigarettes "every so often". Patient is hypertensive at 151/103, and bradycardic at 55 bpm at time of admission; vitals otherwise stable. ED course: Zofran 4 mg IV ROS: Patient endorses chest/epigastric pain (resolved), nausea and vomiting. Patient denies fever, chills, night-sweats, lightheadedness, dizziness, chest palpitations, pleuritic CP, SOB, cough, abdominal pain, diarrhea, changes in urinary/bowel habits, or N/T in the arms. Discharge Exam gen - pleasantly confused but NAD, pleasant mouth - MM more moist today neck - no JVD heart - RRR, s1 s2, no murmur lungs - CTA b/l except faint/dry rales right base only abd - soft, NT, ND, BS+, no HSM ext - no edema, pulses 2+ b/l psych - mild pleasant confusion Discharge Plan Discharge Items Patient Disposition: Home - Self-Care Reason For Visit: CHEST/EPIGASTRIC PAIN Discharge Diagnosis: 1. abdominal pain (+/- chest pain) - resolved, did not recur. Exact cause unce rtain. 2. vitamin B12 deficiency. 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 Cause of #1? 4. chronic kidney disease with acute kidney injury (rise in creatinine above your typical creatinine level); discharge creatinine level 1.9. 5. solitary kidney (only 1 kidney present). Activity: Resume your previous activity Non-emergency contact: Primary Care Provider and Specialist Call non-emergency contact if: you have any medication questions and your symptoms worsen Follow-up/Referrals: Vangie Momin MD [Physician] - 11/18/24 10:20 am (Hospital follow up on November 18 at 10:20 am.) Yenni Rodriguez MD [Primary Care Provider] - 11/14/24 11:30 am (Hospital follow up on November 14 at 11:30 am.) Weston Salamanca MD [Physician] - (keep any previous appointment with Dr Salamanca) Diet: Heart Healthy Addtl Attending Provider Instructions: Ms Rankin, You were hospitalized due to abdominal pain (and/or chest pain). These symptoms resolved & did not recur. You underwent a CT scan of your abdomen & pelvis - this did not reveal a specific cause of your pain. Recent echocardiogram of your heart that you had had on October 30 was normal. Blood work for your liver and pancreas returned normal. Urinalysis was normal. There was no evidence of heart attack. An old CT scan from several years ago showed a clogged artery in your abdomen called the celiac artery. This artery provides blood supply to the stomach as well as several other organs. Did disease of this artery cause your stomach pain? At this time it is uncertain; please follow-up with Dr Salamanca from vascular surgery for this. We discovered that you have vitamin B12 deficiency. B12 deficiency can affect your memory, make balance worse, cause nerve pain in your hands and feet, and lead to anemia. It is easy to fix in most cases. Finally, your creatinine - which is your kidney number in the blood - was higher than typical for you. It ran 1.8 to 1.9 during this stay. In the past it has generally been less than 1.5. It has stayed at 1.9 for 2 days fortunately. Recommendations - 1. HOLD your potassium supplement. HOLD your triamterene-hydrochlorothiazide for now. 2. START [id number] vitamin B12 - 1000mcg (1mg) once daily for at least 6 months. Your family doctor can recheck your level in the future. 3. Shoot for at least 1500ml of liquid intake each day. This amount includes all beverages - water, juice, tea, coffee, soda, sports drinks, etc. Getting this amount will keep you hydrated but will not be too much for your kidney. 4. Follow-up appointments - see separate section. 5. Please ask your family doctor to repeat your creatinine (kidney number) in about 1 week to ensure stability. This can be done at your hospital follow-up appointment. Return to [facility] if - -you have fever over 100 degrees -you have recurrent abdominal pains -you have chest pains -you have shortness of breath -you are worried about dehydration -any other concerns It was our pleasure to care for you! -Suresh Awan, hospitalist Pending Studies at Discharge: No Stand-Alone Forms: My [facility], Smoking Cessation Medications and DC Order Prescriptions: New cyanocobalamin (vitamin B-12) 1,000 mcg tablet 1,000 mcg PO DAILY Qty: 90 1RF Rx Instructions: purchase [id number]. Continued atenolol 25 mg tablet 25 mg PO QAM Qty: 90 3RF Rx Instructions: for blood pressure tiotropium bromide [Spiriva with HandiHaler] 18 mcg capsule, w/inhalation device 1 cap INHALATION QAM Qty: 30 1RF Rx Instructions: pt request Brand Spirivia albuterol sulfate [Ventolin HFA] 90 mcg/actuation HFA aerosol inhaler 1 - 2 puff inhalation Q4H PRN (Reason: shortness of breath or wheezing) Qty: 6.7 5RF Patient Comments: 11/05- no fill history unable to verify cholecalciferol (vitamin D3) [Vitamin D3] 1,000 unit Capsule 1,000 unit PO UD Patient Comments: takes only few times per week rosuvastatin 20 mg tablet 20 mg PO QAM Changed aspirin 81 mg tablet,delayed release (DR/EC) 81 mg PO DAILY Qty: 0 0RF Patient Comments: 11/05- otc unable to verify. Original: 81mg po daily magnesium 250 mg Tablet 250 mg PO QPM Qty: 0 0RF Patient Comments: 11/05- otc unable to verify. Held potassium chloride 10 mEq tablet extended release 10 meq PO QAM Qty: 90 3RF Hold Instructions: hold unless Dr Momin or your family doctor advises to resume triamterene-hydrochlorothiazid 37.5-25 mg capsule 1 cap PO DAILY Qty: 30 6RF Hold Instructions: hold unless Dr Momin or your family doctor advises to resume Discharge Orders: Discharge Order (Routine); Ordered 11/07/24 Ordered By: Suresh Awan Admission Data Admit Date/Time: 11/05/24 14:43 Attending Provider: Suresh Awan Admit Provider: Suresh Awan Primary Care Provider: Yenni Rdoriguez Other Providers: Suresh Awan Other Interventions: Discharge Summary Assessment (RN) Last Done: 11/07/24 11:30 Hospital Stay Data Consultations PT, OT Diagnostic Imagining Performed Chest X-Ray 11/05/24 11:05 XR chest 1V portable CLINICAL HISTORY: Chest pain, nonspecific COMPARISON STUDY: 10/06/2024 FINDINGS: Single view portable chest demonstrates no evidence of pneumothorax or pleural effusion. There is a small area of patchy increased density in the right midlung zone which could represent nonspecific atelectasis. Early infiltrate doubtful but difficult to completely exclude. Heart size and pulmonary vascularity are unremarkable. IMPRESSION: Small airspace opacity right midlung zone of uncertain clinical significance. ACT 112: Negative or not required by law. Electronically signed by: Tiffany Black M.D. 11/05/2024 11:36 AM Abdomen/Pelvis CT 11/05/24 11:[address] WITHOUT CONTRAST CT DOSE: 473.46 mGy.cm HISTORY: Chest pain nausea, upper abd pain TECHNIQUE: Multiaxial CT images of the abdomen and pelvis were performed without contrast. A dose lowering technique was utilized adhering to the principles of ALARA. COMPARISON STUDY: 05/15/2024 FINDINGS: No significant interval changes have occurred. As no acute process identified in the abdomen and pelvis. The lung bases continue to show some chronic atelectasis in the medial segment of the right middle lobe. There are hepatic cysts present. The left kidney is absent. There is no hydronephrosis on the right side. The pancreas, adrenal glands, and spleen are negative. On this noncontrast examination. No aortic aneurysm or periaortic adenopathy. There is no bowel obstruction or free air. No ascites. In the pelvis, there are no acute findings. Uterus is absent. The unopacified urinary bladder is grossly negative. Skeletal structures are redemonstrated and L4-5 laminectomy and fusion. IMPRESSION: Stable exam; no acute process identified in the abdomen and pelvis. ACT 112: Negative or not required by law. The above report was generated using voice recognition software. It may contain grammatical, syntax or spelling errors. Electronically signed by: Tiffany Black M.D. 11/05/2024 12:08 PM Chest X-Ray 11/07/24 07:00 XR chest 2V PA/lateral CLINICAL HISTORY: ?RML infiltrates on prior CXR? COMPARISON STUDY: 11/05/2024 FINDINGS: Heart size and pulmonary vasculature are normal. Stable hyperexpanded lungs. No consolidation or pleural effusion seen. Prior small opacity right midlung is no longer seen. No pneumothorax. IMPRESSION: No pneumonia seen. ACT 112: Negative or not required by law. Electronically signed by: Bubba Pearson M.D. 11/07/2024 11:49 AM Pending Results Patient Have Any Pending Studies at Discharge: No Discharge Instructions Given to Patient (Per Discharging Provider) Ms Chucho, You were hospitalized due to abdominal pain (and/or chest pain). These symptoms resolved & did not recur. You underwent a CT scan of your abdomen & pelvis - this did not reveal a specific cause of your pain. Recent echocardiogram of your heart that you had had on October 30 was normal. Blood work for your liver and pancreas returned normal. Urinalysis was normal. There was no evidence of heart attack. An old CT scan from several years ago showed a clogged artery in your abdomen called the celiac artery. This artery provides blood supply to the stomach as well as several other organs. Did disease of this artery cause your stomach pain? At this time it is uncertain; please follow-up with Dr Salamanca from vascular surgery for this. We discovered that you have vitamin B12 deficiency. B12 deficiency can affect your memory, make balance worse, cause nerve pain in your hands and feet, and lead to anemia. It is easy to fix in most cases. Finally, your creatinine - which is your kidney number in the blood - was higher than typical for you. It ran 1.8 to 1.9 during this stay. In the past it has generally been less than 1.5. It has stayed at 1.9 for 2 days fortunately. Recommendations - 1. HOLD your potassium supplement. HOLD your triamterene-hydrochlorothiazide for now. 2. START pygc-vtg-[id number] vitamin B12 - 1000mcg (1mg) once daily for at least 6 months. Your family doctor can recheck your level in the future. 3. Shoot for at least 1500ml of liquid intake each day. This amount includes all beverages - water, juice, tea, coffee, soda, sports drinks, etc. Getting this amount will keep you hydrated but will not be too much for your kidney. 4. Follow-up appointments - see separate section. 5. Please ask your family doctor to repeat your creatinine (kidney number) in about 1 week to ensure stability. This can be done at your hospital follow-up appointment. Return to [facility] if - -you have fever over 100 degrees -you have recurrent abdominal pains -you have chest pains -you have shortness of breath -you are worried about dehydration -any other concerns It was our pleasure to care for you! -Suresh Awan, hospitalist Total Time Total Time Spent Total Time Spent (In Minutes): 40 Coding Level of Care Code 90232 INP/OBS DISCH >30 MIN Diagnoses Abdominal pain R10.9 Chest pain R07.9 ISELA (acute kidney injury) N17.9 B12 deficiency E53.8 Solitary kidney, acquired Z90.5
--- NOTE | 2024-11-07 11:51 | XRay Report ---
XR chest 2V PA/lateral CLINICAL HISTORY: ?RML infiltrates on prior CXR? COMPARISON STUDY: 11/05/2024 FINDINGS: Heart size and pulmonary vasculature are normal. Stable hyperexpanded lungs. No consolidati on or pleural effusion seen. Prior small opacity right midlung is no longer seen. No pneumothorax. IMPRESSION: No pneumonia seen. ACT 112: Negative or not required by law. Electronically signed by: Bubba Pearson M.D. 11/07/2024 11:49 AM
== END 2024-11-07 11:54 | disposition home or self-care (01) | DRG 682 ==
LOC: 2N 10:52 → ED 10:52 → 2N 15:49